=== PATIENT | male | born 1950 | race Caucasian/White ===

== ENCOUNTER 2019-08-26 07:47 | Outpatient (CLI) | payer MEDICARE, SELFPAY ==
--- NOTE | 2019-08-26 07:55 | XR_ITS ---
WS: [id number] CERVICAL SPINE 3 VIEWS HISTORY: remote trauma, pain, limited rom COMPARISON: None available. Mild straightening of the normal cervical lordosis. LEFT convex curvature of the cervical spine. Mult ilevel facet joint arthritis and hypertrophic bone formation. No fractures. Lateral masses of C1 and C2 are aligned. Odontoid is intact. Soft tissues are normal. XR/XR cervical spine 3V* [id number] IMPRESSION: Mild multilevel facet joint arthritis and spondylosis. No fracture.
== END 2019-08-26 07:48 | disposition home or self-care (01) ==
LOC: RAD 07:49
PROVIDERS: Family Provider Family Medicine; Visit Provider Emergency Medicine
DX: M13.88 Other specified arthritis, other site (principal); G89.29 Other chronic pain; M47.812 Spondylosis without myelopathy or radiculopathy, cervical region
CPT/HCPCS: 72040

== ENCOUNTER 2019-10-17 11:36 | Emergency (ER) | payer MEDICARE, SELFPAY ==
[2019-10-17] VITALS (7 sets, daily range): BP systolic 123–155; BP diastolic 74–92; PULSE 66–131; RESP 14–19; TEMP 36.7; O2SAT 94–96; BMI 30.4
--- NOTE | 2019-10-17 12:05 | ED_ITS ---
HPI - Arrhythmia/Palpitations General: Chief Complaint: Arrhythmia/Palpitations Stated Complaint: IRREGULAR HR Time Seen by Provider: 10/17/19 12:05 History of Present Illness: HPI narrative: This patient is a 68-year-old male who presents today with chest pain and rapid heart rate. He reports he was sitting in his recliner this morning when he had sudden onset of discomfort in his chest accompanied by racing and irregular heart rate. He has had some shor tness of breath with it. He does not feel well in general. The symptoms started about an hour prior to arrival in the ED. He has never had anything like this before. He does have a longstanding history of hypertension for which he takes medications. His primary care doctor is through the [facility] in [place]. No history of heart issues. MD complaint: rapid heart beat, palpitations and irregular heart beat Onset (ago): hour(s) (1) Duration: constant Severity: moderate Context: occurred during rest Associated symptoms: Reports short of breath; Deny nausea or vomiting Review of Systems General: Reports: 10 or more systems reviewed and unremarkable except in HPI and below Const: Denies: fever(s), chills, fatigue or malaise Eyes: Denies: change in vision ENMT: Denies: odynophagia Card: Denies: chest pain or swelling of feet/ankles Resp: Denies: dyspnea, productive cough or non-productive cough GI: Denies: abdominal pain, nausea or vomiting : Denies: flank pain Musc: Denies: neck pain or back pain Skin/Breast: Denies: rash Neuro: Denies: headache(s), numbness in extremities or weakness in extremities Jass/Lymph: Denies: easy bruising or easy bleeding PFS ED PFSH: Medical History (Updated 10/17/19 @ 16:14 by Corine Alcocer MD) Diabetes Hypertension Social History Smoking and tobacco status: never smoked Alcohol intake: never History of recent travel: No Physical Exam Const: COMMON NORMALS: no acute distress, patient oriented x3, no limitations and alert GENERAL APPEARANCE: cooperative and comfortable HENMT: HEAD & SCALP: normal to inspection FACE & SINUS: normal facial exam Eye: GENERAL EYE: appearance normal, both eyes and all related structures Neck/C-Spine: COMMON NORMALS: supple, no meningeal signs and no JVD Chest: COMMONS NORMALS: normal inspection of the chest Resp: COMMON NORMALS: normal respiratory effort, No use of accessory muscles and clear to auscultation bilaterally AUSCULTATION: clear to auscultation bilaterally Cardio: COMMON NORMALS: no JVD and No murmurs present (Cardio) RATE: tac hycardic RHYTHM: abnormal rhythm irregularly irregular GI: COMMON NORMALS: Normal to inspection, nondistended, normoactive bowel sounds present, Soft to palpation and non-tender INSPECTION: Yes normal to inspection AUSCULTATION: Yes normoactive bowel sounds PALPATION: Yes Soft to palpation Back/Pelvis: COMMON NORMALS: thoracic and lumbar spine normal to inspection Extremity: COMMON NORMALS: normal to inspection Neuro: COMMON NORMALS: patient oriented x3, moves all extremities, no focal motor deficits and no sensory deficits noted SENSORIUM/ORIENTATION: Yes alert MENINGEAL SIGNS: Yes no meningeal signs Psych: COMMON NORMALS: mental status grossly normal, cooperative and normal affect Skin: COMMON NORMALS: no rashes or lesions noted and turgor normal GENERAL SKIN EXAM: no rashes or lesions noted and turgor normal Course ED course: Patient was a little hypotensive when he came in he was given some IV fluids he was then given a bolus of 10 mg of IV Cardizem followed by a drip. When the drip was titrated up to 10 mg/h he converted to sinus rhythm at a rate of about 80. First troponin is negative. Second troponin is pending. Patient says he feels a little better but still not great. Second troponin is still pending. We discussed the possible indications for anticoagulation but given that he has had only had 1 episode and it is now resolved I do not think that is indicated at this time. He has a hairspring truing inspector at [facility] in [place] that he will follow-up with. We also discussed medications for rate and rhythm control. He is on amlodipine, clonidine, lisinopril hydrochlorothiazide for blood pressure control. I will probably add a small dose of metoprolol or Cardizem to that but have him follow-up closely with his hairspring truing inspector and decide how to optimize his blood pressure and rate control. Reevaluation(s): Reevaluation #1: Patient converted to sinus rhythm. We stopped the Cardizem drip and he remained in sinus for 45 minutes or an hour. He was given a dose of p.o. Cardizem. He is feeling better. His labs are unremarkable. No sign of ischemia. He has a hairspring truing inspector in [place] but requested a referral to cardiology here which was provided. I do not think we need to start anticoagulation at this time as he is only had one brief episode. He does understand that could be recommended at some point. I did put him on a small dose of Cardizem to take with his regular blood pressure medicines. He said his blood pressure normally runs in the 140s over 90s even on his medications. He will return if worse in any way. Vital Signs: Vital signs: Vital Signs Temperature 98.0 F 10/17/19 11:54 Pulse Rate 68 10/17/19 16:48 Respiratory Rate 16 10/17/19 16:48 Blood Pressure 155/77 10/17/19 16:48 Pulse Oximetry 96 10/17/19 16:48 MDM - Arrhythmia/Palpitations MDM Narrative: Medical decision making narrative: New onset A. fib. Risk factors of hypertension and diabetes. EKG shows A. fib with no obvious ST changes to suggest acute ID. Evaluate for cause of A. fib onset and manage rate and rhythm. We will discuss long-term management and potential anticoagulation. Lab Data: Labs: Lab Results 10/17/19 10/17/19 10/17/19 Range/Units 12:25 12:25 12:25 WBC 9.1 (4.0-10.0) 10^3/ uL RBC 5.82 H (4.1-5.3) 10^6/u L Hgb 16.5 (11.7-16.6) g/dL Hct 48.3 (42.0-52.0) % MCV 83.0 (80-94) fL MCH 28.4 (28.0-34.0) pg MCHC 34.2 (30.0-36.0) g/dL RDW 13.6 (12.1-15.1) % Plt Count 154 (130-400) 10^3/c mm MPV 10.7 H (7.4-10.4) fL Neut % (Auto) 71.0 % Lymph % (Auto) 20.3 % Elbert % (Auto) 5.9 % Eos % (Auto) 1.5 % Baso % (Auto) 0.8 % Neut # (Auto) 6.46 (1.8-7.7) 10^3/u L Lymph # (Auto) 1.9 (0.8-4.8) 10^3/u L Elbert # (Auto) 0.5 (0.2-0.9) 10^3/u L Eos # (Auto) 0.1 (0.0-0.8) 10^3/u L Baso # (Auto) 0.1 (0.0-0.1) 10^3/u L Nucleated RBC % (a uto) 0 % Nucleated RBCs # 0.0 /100WBC Sodium 142 (136-145) mmol/L Potassium 3.7 (3.5-5.1) mmol/L Chloride 105 (98-107) mmol/L Carbon Dioxide 27 (22-29) mmol/L Anion Gap 13.7 (5-19) BUN 18 (8-23) mg/dL Creatinine 0.9 (0.7-1.2) mg/dL GFR Calculation 83.7 L (90-130) mL/min Glucose 113 (65-115) mg/dL Calculated Osmolal ity 291 (285-295) mOsm/k g Calcium 8.8 (8.5-10.5) mg/dL Magnesium 2.2 (1.7-2.3) mg/dL Total Bilirubin 0.8 (0.15-1.2) mg/dL AST 19 (0-40) U/L ALT 22 (0-41) U/L Alkaline Phosphata se 79 (40-130) IU/L Troponin T Baselin e 10 (0-15) ng/L Troponin T 120 Min [place] band (0-15) ng/L Delta Troponin T (0-10) ABS# NT-Pro-B Natriuret Pep 66 (0-125) pg/mL Total Protein 7.3 (6.6-8.7) g/dL Albumin 4.5 (3.5-5.2) g/dL Globulin 2.8 (1.3-4.6) g/dL 10/17/19 Range/Units 14:32 WBC (4.0-10.0) 10^3/ uL RBC (4.1-5.3) 10^6/u L Hgb (11.7-16.6) g/dL Hct (42.0-52.0) % MCV (80-94) fL MCH (28.0-34.0) pg MCHC (30.0-36.0) g/dL RDW (12.1-15.1) % Plt Count (130-400) 10^3/c mm MPV (7.4-10.4) fL Neut % (Auto) % Lymph % (Auto) % Elbert % (Auto) % Eos % (Auto) % Baso % (Auto) % Neut # (Auto) (1.8-7.7) 10^3/u L Lymph # (Auto) (0.8-4.8) 10^3/u L Elbert # (Auto) (0.2-0.9) 10^3/u L Eos # (Auto) (0.0-0.8) 10^3/u L Baso # (Auto) (0.0-0.1) 10^3/u L Nucleated RBC % (a uto) % Nucleated RBCs # /100WBC Sodium (136-145) mmol/L Potassium (3.5-5.1) mmol/L Chloride (98-107) mmol/L Carbon Dioxide (22-29) mmol/L Anion Gap (5-19) BUN (8-23) mg/dL Creatinine (0.7-1.2) mg/dL GFR Calculation (90-130) mL/min Glucose (65-115) mg/dL Calculated Osmolal ity (285-295) mOsm/k g Calcium (8.5-10.5) mg/dL Magnesium (1.7-2.3) mg/dL Total Bilirubin (0.15-1.2) mg/dL AST (0-40) U/L ALT (0-41) U/L Alkaline Phosphata se (40-130) IU/L Troponin T Baselin e (0-15) ng/L Troponin T 120 Min [place] band 9.88 (0-15) ng/L Delta Troponin T -0.12 L (0-10) ABS# NT-Pro-B Natriuret Pep (0-125) pg/mL Total Protein (6.6-8.7) g/dL Albumin (3.5-5.2) g/dL Globulin (1.3-4.6) g/dL Discharge Plan Discharge Patient Disposition: Home Clinical Impression: Atrial fibrillation Qualifiers: Atrial fibrillation type: paroxysmal Qualified Code(s): I48.0 - Paroxysmal atrial fibrillation Condition: Stable Prescriptions: New Cardizem CD 120 mg capsule,extended release 24hr 120 mg PO DAILY Qty: 30 RF: 0 No Action gabapentin 300 mg capsule 300 mg PO DAILY RF: 0 allopurinol 300 mg tablet 150 mg PO DAILY RF: 0 metformin 500 mg tablet 500 mg PO DAILY RF: 0 clonidine HCl 0.1 mg tablet 0.1 mg PO BID RF: 0 amlodipine 10 mg tablet 10 mg PO DAILY RF: 0 lisinopril-hydrochlorothiazide 20-12.5 mg tablet 2 tab PO DAILY RF: 0 Discharge Orders: Discharge Order (Routine); Ordered 10/17/19 Ordered By: Corine Alcocer Referrals: Junito Booker [Primary Care Provider] - Palma Cohen MD [Physician] - 4-7 days (new onset afib) Discharge Diet: Advance as tolerated Discharge Activity: Resume usual activity Patient Instructions: Atrial Fibrillation (ED) Activity Restrictions/Additional Instructions: Continue your regular medications. Also start taking the diltiazem once daily beginning tomorrow evening. Follow-up with the hairspring truing inspector within the next week. Return to the emergency department if you have further episodes of rapid heart rate or chest pain that do not resolve within a short time. Discharge Date/Time: 10/17/19 16:48 Coding Level of Care Code ED [employer] for [employer] Fwd Exam Comprehensive
--- NOTE | 2019-10-17 12:06 | XR_ITS ---
WS: [id number] Portable AP upright chest, 10/17/2019 Clinical Data: cp Comparison: Portable chest, 08/23/2018. Findings: No nodules, masses or effusions are seen. The heart is normal. The pulmonary vascularity is not increased. No pneumonia or pneumothorax is seen. Monitor leads are on the chest wall. There is a n orthopedic anchor in the left humeral head. XR/XR chest 1V portable [id number] Impression: Negative chest.
--- NOTE | 2019-10-17 12:06 | ECG_ITS ---
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 Measurements Intervals [place] Rate: 148 P: FL: -1 QRS: -10 QRSD: 97 T: 69 QT: 303 QTc: 476 Interpretive Statements ATRIAL FIBRILLATION WITH RAPID VENTRICULAR RESPONSE INCOMPLETE RIGHT BUNDLE BRANCH BLOCK MODERATE ST DEPRESSION [0.05+ mV ST DEPRESSION] Compared to ECG 08/23/2018 22:28:50 Sinus bradycardia no longer present ST (T wave) deviation still present Electronically Signed On 10-18-2019 20:31:39 CDT by Palma Cohen M.D. [id number]
[2019-10-17] MEDS: sodium chloride 0.9% 1,000 ML 999 ML IV (12:27)
[2019-10-17 12:40] LABS: Basophils # 0.1 10^3/uL (0.0-0.1); Basophils % 0.8 %; Eosinophils # 0.1 10^3/uL (0.0-0.8); Eosinophils % 1.5 %; Hematocrit 48.3 % (42.0-52.0); Hemoglobin 16.5 g/dL (11.7-16.6); Lymphocytes # 1.9 10^3/uL (0.8-4.8); Lymphocytes % 20.3 %; Mean Corpuscular HGB Conc 34.2 g/dL (30.0-36.0); Mean Corpuscular Hemoglobin 28.4 pg (28.0-34.0); Mean Platelet Volume 10.7 fL (7.4-10.4); Monocytes # 0.5 10^3/uL (0.2-0.9); Monocytes % 5.9 %; Neutrophils # 6.46 10^3/uL (1.8-7.7); Nucleated Red Blood Cells % 0 %; Platelet Count 154 10^3/cmm (130-400); Red Blood Count 5.82 10^6/uL (4.1-5.3); Red Cell Distribution Width 13.6 % (12.1-15.1); White Blood Count 9.1 10^3/uL (4.0-10.0)
[2019-10-17 13:17] LABS: Troponin(5th) Baseline 10 ng/L (0-15)
[2019-10-17 13:27] LABS: Alanine Aminotransferase 22 U/L (0-41); Albumin Level 4.5 g/dL (3.5-5.2); Alkaline Phosphatase 79 IU/L (40-130); Anion Gap 13.7 (5-19); Aspartate Amino Transferase 19 U/L (0-40); Blood Urea Nitrogen 18 mg/dL (8-23); Calcium 8.8 mg/dL (8.5-10.5); Carbon Dioxide 27 mmol/L (22-29); Chloride 105 mmol/L (98-107); Globulin 2.8 g/dL (1.3-4.6); Glomerular Filtration Rate 83.7 mL/min (90-130); Glucose 113 mg/dL (65-115); Magnesium 2.2 mg/dL (1.7-2.3); NT Pro B Type Natriuretic Pept 66 pg/mL (0-125); Osmolality Calculated 291 mOsm/kg (285-295); Potassium 3.7 mmol/L (3.5-5.1); Sodium 142 mmol/L (136-145); Total Bilirubin 0.8 mg/dL (0.15-1.2); Total Protein 7.3 g/dL (6.6-8.7)
--- NOTE | 2019-10-17 14:06 | ECG_ITS ---
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 Measurements Intervals [place] Rate: 65 P: 53 OR: 166 QRS: -15 QRSD: 97 T: 52 QT: 414 QTc: 433 Interpretive Statements SINUS RHYTHM INCOMPLETE RIGHT BUNDLE BRANCH BLOCK Compared to ECG 10/17/2019 11:51:05 Atrial fibrillation no longer present ST (T wave) deviation no longer present Electronically Signed On 10-18-2019 20:55:55 CDT by Palma Cohen M.D. [id number] f
[2019-10-17 15:03] LABS: Troponin 5 2HR 9.88 ng/L (0-15)
[2019-10-17 15:06] LABS: Troponin 5 2HR Delta -0.12 ABS# (0-10)
[2019-10-17] MEDS: dilTIAZem ER (24HR) 120 mg Capsule PO (15:58)
--- NOTE | 2019-10-18 11:33 | DCPLANNER ---
manager sterile had message to schedule a follow up appointment for patient with [facility]. manager sterile called [facility], spoke with Lisette, a follow up appointment was scheduled for Monday, October 23, 2019 at 8:[address] Cohen. manager sterile called patient at phone number [phone], unable to speak with patient at this time, a voicemail was left for patient to return major case detective phone call.
--- NOTE | 2019-11-14 08:21 | DCPLANNER ---
Patient had a follow up appointment scheduled for 10.23.19 with [facility] - patient did attend the appointment.
== END 2019-10-17 16:48 | disposition home or self-care (01) ==
PROVIDERS: Emergency Provider Emergency Medicine; PCP Family Medicine
DX: I48.0 Paroxysmal atrial fibrillation (principal); E11.9 Type 2 diabetes mellitus without complications; I10 Essential (primary) hypertension; Z79.84 Long term (current) use of oral hypoglycemic drugs
CPT/HCPCS: 12345; 36415; 71045; 80053; 83735; 83880; 84484; 85025; 93005; 96365; 96366; 96375; 99283; 99284; J3490; J7030

== ENCOUNTER 2019-11-15 10:05 | Outpatient (CLI) | payer MEDICARE, SELFPAY ==
--- NOTE | 2019-11-15 10:15 | USCV_ITS ---
Paresh Lynch Age: 68 Gender: M : 1950 Exam Date: 11/15/2019 10:18 Ordering Phys: Palma Cohen MD ([email or web address]) Technologist: Lula Mascorro Exam Location: [facility] [place] Indication: AFIB BP: 154 / 62 HR: 57 Rhythm: Sinus Technical Quality: Good MEASUREMENTS (Male / Female) Normal Values 2D ECHO LV Diastolic Diameter PLAX 4.8 cm 4.2 - 5.9 / 3.9 - 5.3 cm LV Systolic Diameter PLAX 2.8 cm LV Chamber Size 5.9 cm IVS Diastolic Thickness 1.5 cm 0.6 - 1.0 / 0.6 - 0.9 cm IVS Systolic Thickness 1.7 cm LVPW Diastolic Thickness 1.1 cm 0.6 - 1.0 / 0.6 - 0.9 cm LVPW Systolic Thickness 1.5 cm RV Chamber Size 3.6 cm LVOT Diameter 2.0 cm LV Ejection Fraction 2D Teich 73.1 % LV Ejection Fraction MOD 2C 61.4 % LV Ejection Fraction 2C AL 61.5 % LA Diameter 4.5 cm LA Width 3.2 cm LA Height 4.8 cm RA Width 3.4 cm RA Height 4.6 cm Aorta at Sinotubular Diameter 2.6 cm M-MODE LV Diastolic Diameter MM 5.9 cm 4.2 - 5.9 / 3.9 - 5.3 cm LV Systolic Diameter MM 3.7 cm LV Ejection Fraction MM Teich 66.2 % IVS Diastolic Thickness MM 1.1 cm 0.6 - 1.0 / 0.6 - 0.9 cm IVS Systolic Thickness MM 1.2 cm LVPW Diastolic Thickness MM 0.8 cm 0.6 - 1.0 / 0.6 - 0.9 cm LVPW Systolic Thickness MM 1.5 cm Aortic Annulus Diameter 2.9 cm LA Ao Ratio MM 1.5 MV E Point Septal Separation 0.2 cm DOPPLER AV Peak Velocity 146.0 cm/s LVOT Peak Velocity 100.0 cm/s AV Area Cont Eq vti 2.2 cm squared AV Area Cont Eq pk 2.2 cm squared MV Area PHT 2.1 cm squared Mitral E to A Ratio 1.1 MV E' Velocity 94.0 cm/s Mitral E to LV E' Septal Ratio 13.7 TR Peak Velocity 266.1 cm/s TR Peak Gradient 28.3 mmHg TR Mean Velocity 177.4 cm/s TR Mean Gradient 15.0 mmHg TR Velocity Time Integral 68.8 cm TV Peak E Velocity 84.0 cm/s Right Atrial Pressure 3.0 mmHg Pulmonary Artery Systolic Pressu 31.3 mmHg PV Peak Velocity 63.0 cm/s FINDINGS Left Ventricle Normal left ventricular size, systolic function and upper normal wall thickness, with no regional wall motion abnormalities. Left ventricular ejection fraction is estimated at 65-70 %. Normal diastolic function. Right Ventricle Normal right ventricular size and systolic function. Right ventricular systolic pressure 31.3 mmHg. Right Atrium Normal right atrial size. Left Atrium Normal left atrial size. Mitral Valve Structurally normal mitral valve. No mitral valve stenosis. Trace mitral valve regurgitation. Aortic Valve Structurally normal trileaflet aortic valve. No aortic valve stenosis. No aortic valve regurgitation. Tricuspid Valve Structurally normal tricuspid valve. Pulmonic Valve Pulmonic valve not well visualized. Trace pulmonary valve regurgitation. Pericardium No pericardial effusion. Aorta Normal size aortic root and proximal ascending aorta. CONCLUSIONS 1. Normal left ventricular size, systolic function and upper normal wall thickness, with no regional wall motion abnormalities. Left ventricular ejection fraction is estimated at 65-70 %. Normal diastolic function. 2. Normal pulmonary artery pressure. 3. No significant valvular abnormality. 4. No prior similar studies to compare. Palma Cohen MD (Electronically Signed) Final Date: 16 November 2019 10:30 Amended: 16 November 2019 11:30 C
== END 2019-11-15 10:06 | disposition home or self-care (01) ==
LOC: US 10:06
PROVIDERS: PCP Family Medicine; Visit Provider Internal Medicine Cardiovascular Disease
DX: I48.91 Unspecified atrial fibrillation (principal)
CPT/HCPCS: 93306

== ENCOUNTER 2020-04-10 12:05 | Emergency (ER) | payer MEDICARE, SELFPAY ==
[2020-04-10 12:09] VITALS: BP 194/84; PULSE 64; RESP 18; TEMP 36.7; O2SAT 97; BMI 30.4
--- NOTE | 2020-04-10 12:23 | XR_ITS ---
WS: [id number] PORTABLE CHEST HISTORY: chest pain COMPARISON: 10/17/2019 Benign granulomata RIGHT lower lobe. No pneumonia. Normal vasculature. Mild hyperexpansion from emphysema. No pleural effusion or pneumothorax. Cardiac size: Normal. Mediastinum/Aorta: Normal mediastinum. No osseous abnormality seen. XR/XR chest 1V portable [id number] IMPRESSION: Stable chest. No acute cardiopulmonary disease.
--- NOTE | 2020-04-10 12:39 | W.ED.CHESTPA ---
HPI - Chest Pain General: Chief Complaint: Chest Pain Stated Complaint: CHEST PAIN, PAIN DOWN ARM Time Seen by Provider: 04/10/20 12:23 History of Present Illness: HPI narrative: 69-year-old male presents emergency room complaining of right-sided chest pain. Pain goes down his right arm and the right side of his arm he has pain is worsening raise on his left side better when he lays on his right side. Not had any cough noted any shortness of breath. MD complaint: chest pain Onset (ago): day(s) (5) Timing of current episode: episodic Prior episodes: Yes Onset: during rest Pain location: right chest Pain radiation: back Severity: moderate Quality: aching Relieving factors: rest Exacerbating factors: palpation and movement Associated symptoms: Deny abdominal pain, diaphoresis, dyspnea, fever(s), leg edema, nausea, palpitations, sense of impending doom, syncope or vomiting Treatment prior to arrival: none Review of Systems Const: Denies: fever(s) or diaphoresis ENMT: Denies: throat pain, ear or mastoid pain, nasal discharge or nasal congestion Card: Denies: palpitations or syncope Resp: Denies: dyspnea GI: Denies: abdominal pain, nausea or vomiting : Denies: flank pain, dysuria, urinary frequency or urinary urgency Skin/Breast: Denies: rash or pruritus PFSH ED PFSH: Medical History Diabetes Hypertension Family History Other CAD (coronary artery disease) Diabetes Denies family history of Stroke Social History Smoking and tobacco status: never smoked Alcohol intake: never History of recent travel: No Physical Exam Const: COMMON NORMALS: no acute distress GENERAL APPEARANCE: cooperative and comfortable ORIENTATION/CONSCIOUSNESS: Yes awake, Yes oriented to person, Yes oriented to place and Yes oriented to time HENMT: COMMON NORMALS: normocephalic, atraumatic and hearing grossly normal bilaterally HEAD & SCALP: normocephalic and atraumatic Neck/C-Spine: COMMON NORMALS: no JVD Chest: OTHER: Producible with movement and palpation on the right mid upper back. Resp: COMMON NORMALS: normal respiratory effort, No retractions, No use of accessory muscles and clear to auscultation bilaterally AUSCULTATION: clear to auscultation bilaterally Cardio: COMMON NORMALS: no JVD, regular rate, regular rhythm and No murmurs present (Cardio) RATE: regular rate RHYTHM: regular rhythm GI: COMMON NORMALS: Soft to palpation and No hepatosplenomegaly present AUSCULTATION: Yes normoactive bowel sounds PALPATION: Yes Soft to palpation, No Tenderness to palpation present (GI), No Guarding due to palpation present (GI) and Yes No hepatosplenomegaly present Extremity: COMMON NORMALS: normal to inspection, capillary refill normal, no clubbing, cyanosis or edema, no calf tenderness and no pedal edema Neuro: SENSORIUM/ORIENTATION: Yes oriented to person, Yes oriented to place and Yes oriented to time Skin: COMMON NORMALS: no rashes or lesions noted GENERAL SKIN EXAM: no rashes or lesions noted Course Vital Signs: Vital signs: Vital Signs Temperature 98.1 F 04/10/20 12:09 Pulse Rate 64 04/10/20 16:08 Respiratory Rate 19 H 04/10/20 16:08 Blood Pressure 158/68 04/10/20 16:08 Pulse Oximetry 97 04/10/20 16:08 MDM - Chest Pain MDM Narrative: Medical decision making narrative: Troponins negative EKG is unremarkable discharge home follow-up with his primary care doctor discussed outpatient cardiac testing he had one about 3 to 4 years ago he does not wish to proceed with. Lab Data: Labs: Lab Results 04/10/20 04/10/20 04/10/20 Range/Units 12:30 12:30 12:30 WBC 7.9 (4.0-10.0) 10^3/ uL RBC 5.48 H (4.1-5.3) 10^6/u L Hgb 15.8 (11.7-16.6) g/dL Hct 46.3 (42.0-52.0) % MCV 84.5 (80-94) fL MCH 28.8 (28.0-34.0) pg MCHC 34.1 (30.0-36.0) g/dL RDW 13.5 (12.1-15.1) % Plt Count 145 (130-400) 10^3/c mm MPV 10.3 (7.4-10.4) fL Neut % (Auto) 67.6 % Lymph % (Auto) 22.7 % Schley % (Auto) 5.6 % Eos % (Auto) 2.5 % Baso % (Auto) 1.0 % Neut # (Auto) 5.33 (1.8-7.7) 10^3/u L Lymph # (Auto) 1.8 (0.8-4.8) 10^3/u L Schley # (Auto) 0.4 (0.2-0.9) 10^3/u L Eos # (Auto) 0.2 (0.0-0.8) 10^3/u L Baso # (Auto) 0.1 (0.0-0.1) 10^3/u L Nucleated RBC % (a uto) 0 % Nucleated RBCs # 0.0 /100WBC Sodium 142 (136-145) mmol/L Potassium 4.0 (3.5-5.1) mmol/L Chloride 107 (98-107) mmol/L Carbon Dioxide 27 (22-29) mmol/L Anion Gap 12.0 (5-19) BUN 20 (8-23) mg/dL Creatinine 0.9 (0.7-1.2) mg/dL GFR Calculation 83.4 L (90-130) mL/min Glucose 142 H (65-115) mg/dL Calculated Osmolal ity 299 H (285-295) mOsm/k g Calcium 8.6 (8.5-10.5) mg/dL Total Bilirubin 0.7 (0.15-1.2) mg/dL AST 19 (0-40) U/L ALT 22 (0-41) U/L Alkaline Phosphata se 78 (40-130) IU/L Troponin T Baselin e 7 (0-15) ng/L Troponin T 120 Min chinik (0-15) ng/L Delta Troponin T (0-10) ABS# Total Protein 6.9 (6.6-8.7) g/dL Albumin 4.2 (3.5-5.2) g/dL Globulin 2.7 (1.3-4.6) g/dL Lipase 21 (13-60) U/L Hepatitis A IgM Ab (Nonreactive) Hep Bs Antigen (Nonreactive) Hep B Core IgM Ab (Nonreactive) Hepatitis C Antibo dy (Nonreactive) HIV 1&2 Ab & HIV 1 Ag (Non-Reactiv) HIV 1&2 Antibody (Non-Reactiv) 04/10/20 04/10/20 04/10/20 Range/Units 12:30 12:30 14:17 WBC (4.0-10.0) 10^3/ uL RBC (4.1-5.3) 10^6/u L Hgb (11.7-16.6) g/dL Hct (42.0-52.0) % MCV (80-94) fL MCH (28.0-34.0) pg MCHC (30.0-36.0) g/dL RDW (12.1-15.1) % Plt Count (130-400) 10^3/c mm MPV (7.4-10.4) fL Neut % (Auto) % Lymph % (Auto) % Schley % (Auto) % Eos % (Auto) % Baso % (Auto) % Neut # (Auto) (1.8-7.7) 10^3/u L Lymph # (Auto) (0.8-4.8) 10^3/u L Schley # (Auto) (0.2-0.9) 10^3/u L Eos # (Auto) (0.0-0.8) 10^3/u L Baso # (Auto) (0.0-0.1) 10^3/u L Nucleated RBC % (a uto) % Nucleated RBCs # /100WBC Sodium (136-145) mmol/L Potassium (3.5-5.1) mmol/L Chloride (98-107) mmol/L Carbon Dioxide (22-29) mmol/L Anion Gap (5-19) BUN (8-23) mg/dL Creatinine (0.7-1.2) mg/dL GFR Calculation (90-130) mL/min Glucose (65-115) mg/dL Calculated Osmolal ity (285-295) mOsm/k g Calcium (8.5-10.5) mg/dL Total Bilirubin (0.15-1.2) mg/dL AST (0-40) U/L ALT (0-41) U/L Alkaline Phosphata se (40-130) IU/L Troponin T Baselin e (0-15) ng/L Troponin T 120 Min chinik 8.60 (0-15) ng/L Delta Troponin T 1.60 (0-10) ABS# Total Protein (6.6-8.7) g/dL Albumin (3.5-5.2) g/dL Globulin (1.3-4.6) g/dL Lipase (13-60) U/L Hepatitis A IgM Ab Non-reactive (Nonreactive) Hep Bs Antigen Non-reactive (Nonreactive) Hep B Core IgM Ab Non-reactive (Nonreactive) Hepatitis C Antibo dy Non-reactive (Nonreactive) HIV 1&2 Ab & HIV 1 Ag Non-reactive (Non-Reactiv) HIV 1&2 Antibody Non-reactive (Non-Reactiv) Discharge Plan Discharge Patient Disposition: Home Clinical Impression: Atypical chest pain, Diabetes Condition: Stable Prescriptions: No Action gabapentin 300 mg capsule 300 mg PO DAILY@2099 RF: 0 allopurinol 300 mg tablet 300 mg PO DAILY@2099 RF: 0 metformin 500 mg tablet 500 mg PO DAILY@2099 RF: 0 amlodipine 10 mg tablet 10 mg PO DAILY@2099 RF: 0 lisinopril-hydrochlorothiazide 20-12.5 mg tablet 2 tab PO DAILY@2099 RF: 0 clonidine HCl 0.1 mg tablet 0.1 mg PO DAILY@2099 RF: 0 ibuprofen 100 mg Tablet 100 - 200 mg PO Q6H PRN (Reason: Pain) RF: 0 Benadryl 25 mg Capsule 25 mg PO Q6H PRN (Reason: Itching) RF: 0 carvedilol 12.5 mg tablet 12.5 mg PO BID@0800,2099 RF: 0 Discharge Orders: Discharge ED (Routine); Ordered 04/10/20 Ordered By: Dharmesh Richmond Discharge Diet: Usual diet Discharge Activity: Increase activity as tolerated Patient Instructions: Opioid Safety Activity Restrictions/Additional Instructions: Case management will help with arrangements to see a PCP recommend you follow-up with them within the next week to reevaluate your blood pressure if back pain persists they can assist with this as well. Coding Level of Care Code ED Product Safety Manager for Kranthi Maciel
[2020-04-10 12:42] LABS: Basophils # 0.1 10^3/uL (0.0-0.1); Eosinophils # 0.2 10^3/uL (0.0-0.8); Eosinophils % 2.5 %; Hematocrit 46.3 % (42.0-52.0); Hemoglobin 15.8 g/dL (11.7-16.6); Lymphocytes # 1.8 10^3/uL (0.8-4.8); Lymphocytes % 22.7 %; Mean Corpuscular HGB Conc 34.1 g/dL (30.0-36.0); Mean Corpuscular Hemoglobin 28.8 pg (28.0-34.0); Mean Corpuscular Volume 84.5 fL (80-94); Mean Platelet Volume 10.3 fL (7.4-10.4); Monocytes # 0.4 10^3/uL (0.2-0.9); Monocytes % 5.6 %; Neutrophils # 5.33 10^3/uL (1.8-7.7); Neutrophils % 67.6 %; Nucleated Red Blood Cells % 0 %; Platelet Count 145 10^3/cmm (130-400); Red Blood Count 5.48 10^6/uL (4.1-5.3); Red Cell Distribution Width 13.5 % (12.1-15.1); White Blood Count 7.9 10^3/uL (4.0-10.0)
[2020-04-10 13:01] LABS: Alanine Aminotransferase 22 U/L (0-41); Albumin Level 4.2 g/dL (3.5-5.2); Alkaline Phosphatase 78 IU/L (40-130); Aspartate Amino Transferase 19 U/L (0-40); Blood Urea Nitrogen 20 mg/dL (8-23); Calcium 8.6 mg/dL (8.5-10.5); Carbon Dioxide 27 mmol/L (22-29); Chloride 107 mmol/L (98-107); Globulin 2.7 g/dL (1.3-4.6); Glomerular Filtration Rate 83.4 mL/min (90-130); Glucose 142 mg/dL (65-115); Lipase 21 U/L (13-60); Osmolality Calculated 299 mOsm/kg (285-295); Sodium 142 mmol/L (136-145); Total Bilirubin 0.7 mg/dL (0.15-1.2); Total Protein 6.9 g/dL (6.6-8.7); Troponin(5th) Baseline 7 ng/L (0-15)
[2020-04-10 13:14] VITALS: BP 151/74; PULSE 62; RESP 18; O2SAT 95
[2020-04-10 14:00] VITALS: BP 165/76; PULSE 61; RESP 22; O2SAT 95
--- NOTE | 2020-04-10 14:24 | ECG_ITS ---
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 Measurements Intervals [place] Rate: 57 P: 62 TN: 165 QRS: 25 QRSD: 101 T: 69 QT: 441 QTc: 430 Interpretive Statements SINUS BRADYCARDIA INCOMPLETE RIGHT BUNDLE BRANCH BLOCK [90+ ms QRS DURATION, TERMINAL R IN V1/V2, 40+ ms S IN I/aVL/V4/V5/V6] NONSPECIFIC T-WAVE ABNORMALITY Compared to ECG 10/17/2019 14:25:35 T-wave abnormality now present Sinus rhythm no longer present Electronically Signed On 04-10-2020 16:14:56 FLOOR COVERINGS INSTALLER by Fili Veloz M.D. [id number]
[2020-04-10 14:30] VITALS: BP 156/73; PULSE 61; RESP 17; O2SAT 96
--- NOTE | 2020-04-10 14:51 | PC.NURSE ---
EKG done at 1435 and shown to ER doctor
[2020-04-10 16:00] VITALS: BP 158/68; PULSE 62; RESP 18; O2SAT 96
[2020-04-10 16:07] LABS: HIV 1 & 2 Antibody Non-Reactive (Non-Reactiv); HIV 1 & 2 Antigen Non-Reactive (Non-Reactiv)
[2020-04-10 16:08] VITALS: BP 158/68; PULSE 64; RESP 19; O2SAT 97
[2020-04-10 16:09] LABS: Hepatitis A Antibody IgM Non-Reactive (Nonreactive); Hepatitis B Core IgM Non-Reactive (Nonreactive); Hepatitis B Surface Antigen Non-Reactive (Nonreactive); Hepatitis C Virus Antibody Non-Reactive (Nonreactive)
--- NOTE | 2020-04-13 14:23 | DCPLANNER ---
regional production manager had message to speak with patient about getting established with a primary care physician. regional production manager called to speak with patient, spoke with patients , she stated that patient did need a primary care physician, and would like to have one in the [facility] area. regional production manager called [facility] in [facility], spoke with Edison, a follow up appointment scheduled for Wednesday, April 15, 2020 at 3:[address] Chun at the [facility] clinic in [facility]. regional production manager called patients again and gave her the appointment information and the phone number to the clinic.
--- NOTE | 2020-04-28 12:48 | DCPLANNER ---
Patient had a follow up appointment scheduled for 04.15.20 with SILVIO Griffith with Dr. Chun - patient did attend appointment.
== END 2020-04-10 16:08 | disposition home or self-care (01) ==
PROVIDERS: Emergency Provider Family Medicine
DX: R07.89 Other chest pain (principal); E11.9 Type 2 diabetes mellitus without complications; Z79.84 Long term (current) use of oral hypoglycemic drugs; I10 Essential (primary) hypertension
CPT/HCPCS: 71045; 80053; 80074; 83690; 84484; 85025; 87806; 93005; 99283

== ENCOUNTER → 2020-04-15 16:49 | Outpatient (BNVA) | payer MEDICARE, SELFPAY | PROVIDERS: Visit Provider Family Medicine | DX: R07.81 Pleurodynia (principal); M79.2 Neuralgia and neuritis, unspecified | CPT/HCPCS: 72040; 72072 ==

== ENCOUNTER → 2020-07-21 10:58 | Outpatient (BNVA) | payer MEDICARE, SELFPAY | PROVIDERS: PCP Family Medicine; Visit Provider Family Medicine | DX: I10 Essential (primary) hypertension (principal); E11.42 Type 2 diabetes mellitus with diabetic polyneuropathy | CPT/HCPCS: 80053; 80061; 83036; 83721 ==

== ENCOUNTER → 2020-09-21 13:48 | Outpatient (BNVA) | payer MEDICARE, SELFPAY | PROVIDERS: PCP Family Medicine; Visit Provider Nurse Practitioner Family | DX: Z20.822 Contact with and (suspected) exposure to COVID-19 (principal) | CPT/HCPCS: 87635 ==

== ENCOUNTER → 2020-12-22 10:54 | Outpatient (BNVA) | payer MEDICARE, SELFPAY | PROVIDERS: PCP Family Medicine; Visit Provider Family Medicine | DX: I10 Essential (primary) hypertension (principal); E11.9 Type 2 diabetes mellitus without complications | CPT/HCPCS: 80048; 83036 ==

== ENCOUNTER → 2021-03-15 09:43 | Outpatient (BNVA) | payer MEDICARE, SELFPAY | PROVIDERS: PCP Family Medicine; Visit Provider Family Medicine | DX: M1A.09X0 Idiopathic chronic gout, multiple sites, without tophus (tophi) (principal); L29.9 Pruritus, unspecified; I10 Essential (primary) hypertension; E11.42 Type 2 diabetes mellitus with diabetic polyneuropathy; E11.9 Type 2 diabetes mellitus without complications; Z12.5 Encounter for screening for malignant neoplasm of prostate; Z12.11 Encounter for screening for malignant neoplasm of colon | CPT/HCPCS: 80053; 83036; 84153; 84550 ==

== ENCOUNTER → 2021-06-14 09:14 | Outpatient (BNVA) | payer MEDICARE, SELFPAY | PROVIDERS: PCP Family Medicine; Visit Provider Family Medicine | DX: I10 Essential (primary) hypertension (principal); E11.42 Type 2 diabetes mellitus with diabetic polyneuropathy; M1A.09X0 Idiopathic chronic gout, multiple sites, without tophus (tophi); Z13.220 Encounter for screening for lipoid disorders; Z13.6 Encounter for screening for cardiovascular disorders | CPT/HCPCS: 80053; 80061; 83036; 83721; 84550 ==

== ENCOUNTER → 2021-07-12 10:02 | Outpatient (BNVA) | payer MEDICARE, SELFPAY | PROVIDERS: PCP Family Medicine; Visit Provider Family Medicine | DX: R74.8 Abnormal levels of other serum enzymes (principal); I10 Essential (primary) hypertension | CPT/HCPCS: 80048 ==

== ENCOUNTER → 2021-09-09 08:56 | Outpatient (BNVA) | payer MEDICARE, SELFPAY | PROVIDERS: PCP Family Medicine; Visit Provider Family Medicine | DX: M17.0 Bilateral primary osteoarthritis of knee (principal) | CPT/HCPCS: 73562 ==

== ENCOUNTER → 2022-01-11 08:41 | Outpatient (BNVA) | payer MEDICARE, SELFPAY | PROVIDERS: PCP Family Medicine; Visit Provider Family Medicine | DX: E11.42 Type 2 diabetes mellitus with diabetic polyneuropathy (principal); I10 Essential (primary) hypertension | CPT/HCPCS: 80048; 83036 ==

== ENCOUNTER → 2022-03-03 10:42 | Outpatient (BNVA) | payer MEDICARE, SELFPAY | PROVIDERS: PCP Family Medicine; Visit Provider Internal Medicine Cardiovascular Disease | DX: R00.2 Palpitations (principal); I48.0 Paroxysmal atrial fibrillation; I10 Essential (primary) hypertension; E11.42 Type 2 diabetes mellitus with diabetic polyneuropathy; M1A.09X0 Idiopathic chronic gout, multiple sites, without tophus (tophi) | CPT/HCPCS: 93010 ==

== ENCOUNTER 2022-06-06 20:36 | Observation (INO) | payer MEDICARE, SELFPAY ==
[2022-06-06 20:48] VITALS: BP 188/90; PULSE 64; RESP 14; TEMP 37.1; O2SAT 96; BMI 31.5
--- NOTE | 2022-06-06 20:54 | ECG_ITS ---
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 Measurements Intervals [place] Rate: 60 P: 48 LA: 167 QRS: -13 QRSD: 109 T: 55 QT: 423 QTc: 425 Interpretive Statements SINUS RHYTHM INCOMPLETE RIGHT BUNDLE BRANCH BLOCK [90+ ms QRS DURATION, TERMINAL R IN V1/V2, 40+ ms S IN I/aVL/V4/V5/V6] Compared to ECG 04/10/2020 14:36:09 Sinus bradycardia no longer present T-wave abnormality no longer present Electronically Signed On 06-07-2022 14:50:05 CDT by Sumeet Tay M.D. [id number]
[2022-06-06 20:56] LABS: Glucose Point of Care 169 mg/dL (70-110)
--- NOTE | 2022-06-06 20:57 | XRR_ITS ---
PROCEDURE INFORMATION: Exam: XR Chest Exam date and time: 06/06/2022 9:09 PM Age: 71 years old Clinical indication: Other: Weakness; Additional info: Cp TECHNIQUE: Imaging protocol: Radiologic exam of the chest. Views: 1 view. COMPARISON: CR XR chest 1V portable [id number] 04/10/2020 12:27 PM FINDINGS: Lungs: Two right lower lobe probable granulomas, similar to prior exams dating back to 03/18/2018. Pleural spaces: Unremarkable. No pleural effusion. No pneumothorax. Heart/Mediastinum: Cardiomegaly. Bones/joints: Unremarkable. XR/XR chest 1V portable [id number] IMPRESSION: Cardiomegaly, negative for infiltrate.
--- NOTE | 2022-06-06 20:57 | CTR_ITS ---
PROCEDURE INFORMATION: Exam: CTA Head With Contrast, Arteriography Exam date and time: 06/06/2022 9:35 PM Age: 71 years old Clinical indication: Pain; Dizziness and giddiness; Headache; Patient HX: C/O OBRIEN with dizziness. History of TIA. ; Additional info: Obrien/dizziness TECHNIQUE: Imaging protocol: Computed tomographic angiography of the head with contrast. Exam focused on the arteries. 3D rendering (Not supervised by radiologist): MIP and/or 3D reconstructed images were created by the technologist. Radiation optimization: All CT scans at this facility use at least one of these dose optimization techniques: automated exposure control; mA and/or kV adjustment per patient size (includes targeted exams where dose is matched to clinical indication); or iterative reconstruction. Contrast material: OMNI 350; Contrast volume: 100 ml; Contrast route: INTRAVENOUS (IV); REPORTING DATA: Count of CT and Cardiac NM exams in prior 12 months: This patient has received [address] and 0 known cardiac nuclear medicine studies in the 12 months prior to the current study. COMPARISON: CT head wo con* [id number] 06/06/2022 9:32 PM RADIATION DOSE METRICS: Total DLP (mGy-cm): 553.72 FINDINGS: ANTERIOR CIRCULATION: Right internal carotid artery: Intracranial segment is patent with no significant stenosis. No aneurysm. Right middle cerebral artery: No occlusion or significant stenosis. No aneurysm. Right anterior cerebral artery: No occlusion or significant stenosis. No aneurysm. Left internal carotid artery: Mild stenosis in the supraclinoid left internal carotid artery. Left middle cerebral artery: No occlusion or significant stenosis. No aneurysm. Left anterior cerebral artery: No occlusion or significant stenosis. No aneurysm. POSTERIOR CIRCULATION: Right vertebral artery: No occlusion or significant stenosis. No aneurysm. Left vertebral artery: No occlusion or significant stenosis. No aneurysm. Basilar artery: No occlusion or significant stenosis. No aneurysm. Right posterior cerebral artery: Severe stenosis in the P1 segment of the right posterior cerebral artery. Left posterior cerebral artery: Moderate stenosis in the P2 segment of the left posterior cerebral artery. Brain: No definite mass, mass effect, or midline shift. Cerebral ventricles: No ventriculomegaly. Bones/joints: Unremarkable. No acute fracture. Soft tissues: Unremarkable. PROCEDURE INFORMATION: Exam: CTA Neck With Contrast Exam date and time: 06/06/2022 9:35 PM Age: 71 years old Clinical indication: Pain; Dizziness and giddiness; Headache; Patient HX: C/O OBRIEN with dizziness. History of TIA. ; Additional info: Obrien/dizziness TECHNIQUE: Imaging protocol: Computed tomographic angiography of the neck with contrast. 3D rendering (Not supervised by radiologist): MIP and/or 3D reconstructed images were created by the technologist. Radiation optimization: All CT scans at this facility use at least one of these dose optimization techniques: automated exposure control; mA and/or kV adjustment per patient size (includes targeted exams where dose is matched to clinical indication); or iterative reconstruction. Contrast material: OMNI 350; Contrast volume: 100 ml; Contrast route: INTRAVENOUS (IV); REPORTING DATA: Count of CT and Cardiac NM exams in prior 12 months: This patient has received [address] and 0 known cardiac nuclear medicine studies in the 12 months prior to the current study. COMPARISON: CT head wo con* [id number] 06/06/2022 9:32 PM RADIATION DOSE METRICS: Total DLP (mGy-cm): 553.72 FINDINGS: Right common carotid artery: No stenosis. No dissection or occlusion. Right internal carotid artery: No stenosis of the extracranial segment. No dissection or occlusion. Right external carotid artery: No occlusion or stenosis of the origin. Left common carotid artery: No stenosis. No dissection or occlusion. Left internal carotid artery: Minimal calcified plaque in the left internal carotid artery with 0% stenosis. Left external carotid artery: No occlusion or stenosis of the origin. Right vertebral artery: No stenosis. No dissection or occlusion. Left vertebral artery: No stenosis. No dissection or occlusion. Lymph nodes: Prominent mediastinal and hilar lymph nodes are most likely reactive. Soft tissues: Normal. No significant soft tissue swelling. Bones/joints: No acute fracture. Lungs: Emphysema. Left upper lobe calcified granuloma. CT/CT angio headneck* [id number] IMPRESSION: 1. 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 2. Moderate stenosis in the P2 segment of the left posterior cerebral artery. IMPRESSION: 1. No large artery occlusion or stenosis. REFERENCES: NASCET CRITERIA. The degree of stenosis in the cervical segment of the internal carotid artery is based on NASCET criteria. Normal is no stenosis. Mild is less than 50% stenosis. Moderate is 50-69% stenosis. Severe is 70% to 99% stenosis. Total occlusion is no detectable patent lumen.
--- NOTE | 2022-06-06 20:57 | CTR_ITS ---
PROCEDURE INFORMATION: Exam: CT Head Without Contrast Exam date and time: 06/06/2022 9:32 PM Age: 71 years old Clinical indication: Pain; Headache; Patient HX: C/O OBRIEN with dizziness. History of TIA. ; Additional info: Obrien/dizziness TECHNIQUE: Imaging protocol: Computed tomography of the head without contrast. Radiation optimization: All CT scans at this facility use at least one of these dose optimization techniques: automated exposure control; mA and/or kV adjustment per patient size (includes targeted exams where dose is matched to clinical indication); or iterative reconstruction. REPORTING DATA: Count of CT and Cardiac NM exams in prior 12 months: This patient has received [address] and 0 known cardiac nuclear medicine studies in the 12 months prior to the current study. COMPARISON: CR XR cervical spine 3V* [id number] 04/15/2020 5:00 PM RADIATION DOSE METRICS: Total DLP (mGy-cm): 1164.08 FINDINGS: Brain: Mild diffuse cortical volume loss. Mild hypodensities in supratentorial periventricular and subcortical white matter, consistent with microangiopathy. No intracranial hemorrhage. Cerebral ventricles: No ventriculomegaly. Paranasal sinuses: Mild mucosal thickening in the maxillary, ethmoid, and sphenoid sinuses. No air-fluid level. Mastoid air cells: Visualized mastoid air cells are well aerated. Bones/joints: Unremarkable. No acute fracture. Soft tissues: Unremarkable. Vasculature: No hyperdense artery. CT/CT head wo con* [id number] IMPRESSION: 1. No acute intracranial abnormality.
--- NOTE | 2022-06-06 20:57 | ECG_ITS ---
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 Measurements Intervals [place] Rate: 69 P: 54 [place]: 168 QRS: -10 QRSD: 104 T: 63 QT: 416 QTc: 446 Interpretive Statements SINUS RHYTHM WITH OCCASIONAL SUPRAVENTRICULAR PREMATURE COMPLEXES INCOMPLETE RIGHT BUNDLE BRANCH BLOCK [90+ ms QRS DURATION, TERMINAL R IN V1/V2, 40+ ms S IN I/aVL/V4/V5/V6] Compared to ECG 04/10/2020 14:36:09 Sinus bradycardia no longer present T-wave abnormality no longer present Electronically Signed On 06-07-2022 14:50:01 CDT by Sumeet Tay M.D. [id number]
[2022-06-06 21:33] LABS: Basophils # 0.1 10^3/uL (0.0-0.1); Eosinophils # 0.2 10^3/uL (0.0-0.8); Eosinophils % 2.9 %; Hematocrit 42.5 % (42.0-52.0); Hemoglobin 14.2 g/dL (11.7-16.6); Lymphocytes % 33.7 %; Mean Corpuscular HGB Conc 33.4 g/dL (30.0-36.0); Mean Corpuscular Hemoglobin 30.7 pg (28.0-34.0); Mean Platelet Volume 10.6 fL (7.4-10.4); Monocytes # 0.4 10^3/uL (0.2-0.9); Monocytes % 6.1 %; Neutrophils # 3.28 10^3/uL (1.8-7.7); Neutrophils % 55.6 %; Nucleated Red Blood Cells % 0 %; Platelet Count 131 10^3/cmm (130-400); Red Blood Count 4.62 10^6/uL (4.1-5.3); White Blood Count 5.9 10^3/uL (4.0-10.0)
[2022-06-06] MEDS: iohexol 350 mg/mL 500 mL Btl (per mL) IV (21:35)
--- NOTE | 2022-06-06 21:35 | W.ED.HA ---
HPI - Headache General: Chief Complaint: Headache Stated Complaint: weakness, stroke like symptoms Time Seen by Provider: 06/06/22 20:50 Source: patient Mode of arrival: ambulatory Limitations: no limitations History of Present Illness: 71-year-old male states at 3 PM today felt like he did have he states the swimmy headed sounds like he is having some lightheadedness he states he is also been having intermittent chest pain and headache since then he states the pain is a pressure type pain in the center of his chest he denies any nausea or vomiting he denies any dizziness he states that he did feel like he had a hard time walking at times its been intermittent. His last known normal was 3 PM. He has no facial droop or slurred speech or focal weaknesses. He denies any shortness of breath denies any worsening proving factors. Associated symptoms: Reports chest pain; Deny fever(s), nausea or vomiting Review of Systems Const: Denies: fever(s), chills, body aches or change in appetite Eyes: Denies: blurry vision or eye discomfort ENMT: Denies: throat pain or dental pain Card: Reports: chest pain Resp: Denies: dyspnea GI: Denies: abdominal pain, nausea, vomiting or diarrhea Musc: Denies: neck pain or back pain Neuro: Reports: headache(s) Psych: Denies: depression PFSH ED PFSH: Medical History Diabetes Intolerance to glipizide, high-dose Metformin causes diarrhea Diabetic neuropathy Erectile dysfunction Hypertension Family History Other CAD (coronary artery disease) Diabetes Denies family history of Stroke Social History Smoking and tobacco status: former smoker (quit 1998) Alcohol intake: never Physical Exam Const: COMMON NORMALS: patient oriented x3 and healthy appearing HENMT: COMMON NORMALS: normocephalic and atraumatic HEAD & SCALP: normocephalic and atraumatic Eye: COMMON NORMALS: Equal, round and reactive pupils present and EOMs intact bilaterally PUPIL: Yes Equal, round and reactive pupils present Neck/C-Spine: COMMON NORMALS: full ROM and supple Chest: COMMONS NORMALS: normal inspection of the chest and normal palpation of entire chest wall Resp: COMMON NORMALS: normal respiratory effort, No retractions, No use of accessory muscles and clear to auscultation bilaterally AUSCULTATION: clear to auscultation bilaterally Cardio: COMMON NORMALS: regular rate, regular rhythm and No murmurs present (Cardio) RATE: regular rate RHYTHM: regular rhythm GI: COMMON NORMALS: Normal to inspection, nondistended, normoactive bowel sounds present, Soft to palpation, non-tender and no masses PALPATION: Yes Soft to palpation Extremity: COMMON NORMALS: normal to inspection and full ROM Neuro: COMMON NORMALS: patient oriented x3, moves all extremities and no focal motor deficits CRANIAL NERVES: Yes CN normal except as noted SPEECH: speech normal GAIT: Yes Normal gait present MOTOR EXAM: 5/5 motor strength present throughout Psych: COMMON NORMALS: mental status grossly normal, Normal thought process present and cooperative THOUGHT PROCESS: Normal thought process present Skin: COMMON NORMALS: no rashes or lesions noted and no wounds GENERAL SKIN EXAM: no rashes or lesions noted Course Vital Signs: Vital signs: Vital Signs Temperature 98.8 F 06/06/22 20:48 Pulse Rate 64 06/06/22 20:48 Respiratory Rate 14 06/06/22 20:48 Blood Pressure 188/90 06/06/22 20:48 Pulse Oximetry 96 06/06/22 20:48 Oxygen Delivery Me thod Room Air 06/06/22 20:48 MDM - Headache Medical Decision Making StartedPatient presents with dizziness along some chest pain 3 PM he is not a tPA candidate due to time CTA did show some stenosis no clot his initial troponin here is normal I did speak to the hospitalist will admit for observation to rule out a posterior stroke along with chest pain rule out he has been stable here. Medical Records I reviewed the patient's medical records. Lab Data I reviewed the patient's lab results. 06/06/22 21:15 06/06/22 21:15 Radiology Impressions Chest X-Ray 06/06/22 20:57 IMPRESSION: Cardiomegaly, negative for infiltrate. Head CT 06/06/22 20:57 IMPRESSION: 1. No acute intracranial abnormality. Head/Neck CTA 06/06/22 20:57 IMPRESSION: 1. 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 2. Moderate stenosis in the P2 segment of the left posterior cerebral artery. IMPRESSION: 1. No large artery occlusion or stenosis. REFERENCES: NASCET CRITERIA. The degree of stenosis in the cervical segment of the internal carotid artery is based on NASCET criteria. Normal is no stenosis. Mild is less than 50% stenosis. Moderate is 50-69% stenosis. Severe is 70% to 99% stenosis. Total occlusion is no detectable patent lumen. Laboratory Results WBC 5.9 10^3/uL (4.0-10.0) 06/06/22 21:15 RBC 4.62 10^6/uL (4.1-5.3) 06/06/22 21:15 Hgb 14.2 g/dL (11.7-16.6) 06/06/22 21:15 Hct 42.5 % (42.0-52.0) 06/06/22 21:15 MCV 92.0 fl (80-94) 06/06/22 21:15 MCH 30.7 pg (28.0-34.0) 06/06/22 21:15 MCHC 33.4 g/dL (30.0-36.0) 06/06/22 21:15 RDW 15.0 % (12.1-15.1) 06/06/22 21:15 Plt Count 131 10^3/cmm (130-400) 06/06/22 21:15 MPV 10.6 fL (7.4-10.4) H 06/06/22 21:15 Neut % (Auto) 55.6 % 06/06/22 21:15 Lymph % (Auto) 33.7 % 06/06/22 21:15 Johnson % (Auto) 6.1 % 06/06/22 21:15 Eos % (Auto) 2.9 % 06/06/22 21:15 Baso % (Auto) 1.0 % 06/06/22:15 Neut # (Auto) 3.28 10^3/uL (1.8-7.7) 06/06/22 21:15 Lymph # (Auto) 2.0 10^3/uL (0.8-4.8) 06/06/22 21:15 Johnson # (Auto) 0.4 10^3/uL (0.2-0.9) 06/06/22 21:15 Eos # (Auto) 0.2 10^3/uL (0.0-0.8) 06/06/22 21:15 Baso # (Auto) 0.1 10^3/uL (0.0-0.1) 06/06/22 21:15 Nucleated RBC % (auto) 0 % 06/06/22 21:15 Nucleated RBCs # 0.0 /100WBC 06/06/22 21:15 PT 16.60 SECONDS (12.1-14.9) H 06/06/22 21:15 INR 1.30 (0.8-1.2) H 06/06/22 21:15 Sodium 142 mmol/L (136-145) 06/06/22 21:15 Potassium 4.5 mmol/L (3.5-5.1) 06/06/22 21:15 Chloride 106 mmol/L (98-107) 06/06/22 21:15 Carbon Dioxide 25 mmol/L (22-29) 06/06/22 21:15 Anion Gap 15.5 (5-19) 06/06/22 21:15 BUN 26 mg/dL (8-23) H 06/06/22 21:15 Creatinine 1.4 mg/dL (0.7-1.2) H 06/06/22 21:15 GFR Calculation Not Reportable 06/06/22 21:15 Glucose 123 mg/dL (65-115) H 06/06/22 21:15 POC Glucose 169 mg/dL (70-110) H 06/06/22 20:43 Calculated Osmolality 300 mOsm/kg (285-295) H 06/06/22 21:15 Calcium 8.8 mg/dL (8.5-10.5) 06/06/22 21:15 Total Bilirubin 0.6 mg/dL (0.15-1.2) 06/06/22 21:15 AST 18 U/L (0-40) 06/06/22 21:15 ALT 22 U/L (0-41) 06/06/22 21:15 Alkaline Phosphatase 68 U/L (40-130) 06/06/22 21:15 Troponin T Baseline 12 ng/L (0-15) 06/06/22 21:15 Total Protein 6.9 g/dL (6.6-8.7) 06/06/22 21:15 Albumin 4.2 g/dL (3.5-5.2) 06/06/22 21:15 Globulin 2.7 g/dL (1.3-4.6) 06/06/22 21:15 Lipase 37 U/L (13-60) 06/06/22 21:15 EKG Data EKG 1: I personally reviewed and interpreted this EKG as follows: EKG interpretation date: 06/06/22 EKG interpretation time: 20:50 Interpretation: nsr hr [address] or t wave abnormalities qrs 109 qtc 424 Discharge Plan Discharge Patient Disposition: Admitted As Inpatient Clinical Impression: Dizziness, Chest pain Condition: Stable Prescriptions: No Action metformin 500 mg tablet See Rx Instructions .ROUTE .COMPLEX Qty: 180 0RF Dose Instruction: TAKE 1 TABLET BY MOUTH TWICE DAILY FOR DIABETES Rx Instructions: TAKE 1 TABLET BY MOUTH TWICE DAILY FOR DIABETES carvedilol 12.5 mg tablet 12.5 mg PO BID 90 Days Qty: 180 2RF losartan-hydrochlorothiazide 100-25 mg tablet 1 tab PO QAM 90 Days Qty: 90 2RF Rx Instructions: 340B clonidine HCl 0.1 mg tablet 0.1 mg PO BID 90 Days Qty: 180 2RF Rx Instructions: FOR BLOOD PRESSURE spironolactone 25 mg tablet 25 mg PO DAILY 90 Days Qty: 90 2RF gabapentin 300 mg capsule 300 mg PO QID 90 Days Qty: 360 2RF aspirin [Adult Aspirin Regimen] 81 mg tablet,delayed release (DR/EC) 81 mg PO DAILY triamcinolone acetonide 0.1 % cream 1 applic topical DAILY Qty: 80 2RF Rx Instructions: to lower legs feiklquazisvjkj-pnpvgzgih-SC [Bromfed DM] 2-30-10 mg/5 mL syrup 7.5 ml PO Q6H PRN (Reason: cold symptoms) Qty: 160 0RF (DME) Blood Glucose Test Strip See Rx Instructions .Route Qty: 50 2RF Rx Instructions: Test once daily Jardiance 25 mg tablet See Rx Instructions .ROUTE .COMPLEX Qty: 30 3RF Dose Instruction: TAKE ONE TABLET BY MOUTH EVERY MORNING Rx Instructions: TAKE ONE TABLET BY MOUTH EVERY MORNING Referrals: Rylie Chun MD [Primary Care Provider] - Coding Level of Care Code ED Director Of Public Relations for Chg Fwd NIH stroke score NIHSS Level Of Consciousness - 1a: 0 Level Of Consciousness Questions - 1b: Both Correct Level Of Consciousness Commands - 1c: Both Correct Best Gaze - 2: Normal Visual Beatty - 3: No Visual Loss Facial Palsy - 4: Normal Motor Arm Right - 5: No Drift Motor Arm Left - 5: No Drift Motor Leg Right - 6: No Drift Motor Leg Left - 6: No Drift Limb Ataxia - 7: Absent Sensory - 8: Normal Best Language - 9: No Aphasia Dysarthia - 10: Normal Extinction And Inattention - 11: 0 Score Total Score: 0
[2022-06-06 22:05] LABS: Alanine Aminotransferase 22 U/L (0-41); Albumin Level 4.2 g/dL (3.5-5.2); Alkaline Phosphatase 68 U/L (40-130); Anion Gap 15.5 (5-19); Aspartate Amino Transferase 18 U/L (0-40); Blood Urea Nitrogen 26 mg/dL (8-23); Calcium 8.8 mg/dL (8.5-10.5); Carbon Dioxide 25 mmol/L (22-29); Chloride 106 mmol/L (98-107); Globulin 2.7 g/dL (1.3-4.6); Glucose 123 mg/dL (65-115); Lipase 37 U/L (13-60); Osmolality Calculated 300 mOsm/kg (285-295); Potassium 4.5 mmol/L (3.5-5.1); Sodium 142 mmol/L (136-145); Total Bilirubin 0.6 mg/dL (0.15-1.2); Total Protein 6.9 g/dL (6.6-8.7)
[2022-06-06 22:28] LABS: Troponin(5th) Baseline 12 ng/L (0-15)
[2022-06-07] VITALS (7 sets, daily range): BP systolic 155–179; BP diastolic 67–74; PULSE 55–73; RESP 15–19; TEMP 36.4–36.8; O2SAT 96–98; BMI 30.9
[2022-06-07 00:10] LABS: Troponin 5 2HR 12.34 ng/L (0-15)
[2022-06-07 00:13] LABS: Troponin 5 2HR Delta 0.34 ABS# (0-10)
--- NOTE | 2022-06-07 01:15 | PM.HP ---
Providers/Chief Complaint Admitting Physician: Neil Mcbride MD Primary Care Provider: Rylie Chun MD Chief Complaint: weakness, stroke like symptoms History of Present Illness Paresh Lynch is a 71 year old male with a past medical history noninsulin-dependent type 2 diabetes mellitus, hypertension, history of A-fib with RVR in the ER 2 hours, who presents to [facility] for dizziness episodes. Patient tells me that roughly 2 weeks ago he had episodes of unsteadiness, dizziness, he went to his primary care provider who thought it was a TIA. He tells me again today he had these episodes in which she felt unsteady on his feet, no vertigo, no facial droop, no slurring of his words, he did have some numbness of his upper lip, no focal weakness, no blurry vision, he had a few episodes, he tells me he was unsteady on his feet, thus he came to the emergency room. He denies any chest pain, no palpitations. No fevers, no chills. No cough. No dysuria. No falls. Review of Systems Const: Denies: fever(s), chills or fatigue Eyes: Denies: change in vision Card: Denies: chest pain or palpitations Resp: Denies: dyspnea or productive cough GI: Denies: abdominal pain : Denies: flank pain, difficulty urinating or dysuria Musc: Denies: back pain Skin/Breast: Denies: rash Neuro: Reports: dizziness; Denies: headache(s), numbness in extremities or weakness in extremities Psych: Denies: anxiety Endo: Denies: polyuria Medications/Allergies Home Medications Medication Instructions Recorded Confirmed Last Taken Type blood sugar diagnostic (Blood #50 ea 12/19/20 03/01/22 Unknown Rx Glucose Test strips) carvedilol 12.5 mg tablet 12.5 mg PO BID 90 days #180 tabs 01/11/22 03/01/22 Unknown Rx clonidine HCl 0.1 mg tablet 0.1 mg PO BID 90 days #180 tabs 01/11/22 03/01/22 Unknown Rx gabapentin 300 mg capsule 300 mg PO QID 90 days #360 caps 01/11/22 03/01/22 Unknown Rx losartan 100 1 tab PO QAM 90 days #90 tabs 01/11/22 03/01/22 Unknown Rx mg-hydrochlorothiazide 25 mg tablet metformin 500 mg tablet See Rx Instructions .Route 01/11/22 03/01/22 Unknown Rx .COMPLEX #180 tabs spironolactone 25 mg tablet 25 mg PO DAILY 90 days #90 tabs 01/11/22 03/01/22 Unknown Rx darhpbeyjyirazs-dvxrhuhcgrgbzea-OA 7.5 ml PO Q6H PRN cold symptoms 02/25/22 03/01/22 Unknown Rx 2 mg-30 mg-10 mg/5 mL oral syrup #160 mL (Bromfed DM) triamcinolone acetonide 0.1 % 1 applic topical DAILY #80 grams 02/25/22 03/01/22 Unknown Rx topical cream empagliflozin 25 mg tablet See Rx Instructions .Route 03/29/22 Unknown Rx (Jardiance) .COMPLEX #30 tabs aspirin 81 mg tablet,delayed 81 mg PO DAILY 04/12/22 04/12/22 Unknown History release (Adult Aspirin Regimen) Allergies Allergy/AdvReac Type Severity Reaction Status Date / Time Penicillins Allergy rash Verified 06/06/22 20:54 glipizide AdvReac Intermediate itching Verified 06/06/22 20:54 PFSH Acute PFSH: Medical History (Updated 06/07/22 @ 01:21 by Neil Mcbride MD) Diabetes Intolerance to glipizide, high-dose Metformin causes diarrhea Diabetic neuropathy Erectile dysfunction Hypertension Surgical History (Updated 06/07/22 @ 01:19 by Neil Mcbride MD) No pertinent past surgical history Family History Other CAD (coronary artery disease) Diabetes Denies family history of Stroke Social History Smoking and tobacco status: former smoker (quit 1998) Alcohol intake: never Vitals/I&O/Wt Last Vital Signs Temp 98.8 F 06/06/22 20:48 Pulse 61 06/07/22 00:54 Resp 14 06/06/22 20:48 BP 156/70 06/07/22 00:54 Pulse Ox 97 06/07/22 00:54 O2 Del Method Room Air 06/07/22 00:54 Weight last 48 hrs Weight 99.79 kg Physical Exam Const: COMMON NORMALS: no acute distress and patient oriented x3 HENMT: COMMON NORMALS: normocephalic HEAD & SCALP: normocephalic Eye: COMMON NORMALS: Equal, round and reactive pupils present and EOMs intact bilaterally Neck/C-Spine: COMMON NORMALS: no JVD Lymph: LYMPHATIC: no lymphadenopathy noted Resp: COMMON NORMALS: normal respiratory effort, No retractions, No use of accessory muscles and clear to auscultation bilaterally AUSCULTATION: clear to auscultation bilaterally Cardio: COMMON NORMALS: no JVD, regular rate, regular rhythm, S1 normal heart sound present and S2 normal heart sound present RATE: regular rate RHYTHM: regular rhythm HEART SOUNDS: S1 normal heart sound present and S2 normal heart sound present GI: COMMON NORMALS: Normal to inspection, nondistended, normoactive bowel sounds present, Soft to palpation, non-tender, no masses and no bruits Extremity: COMMON NORMALS: no pedal edema Neuro: COMMON NORMALS: patient oriented x3, CN's II-XII intact bilaterally, moves all extremities and no focal motor deficits Psych: COMMON NORMALS: mental status grossly normal Data 06/06/22 21:15 06/06/22 21:15 A&P Assessment and plan (1) Dizziness: (2) CVA (cerebral vascular accident): (3) Intermittent atrial fibrillation: (4) Posterior circulation stroke: Plan Dizziness -With concerns for CVA -UA, orthostatic vitals pending -CT head no acute findings -CTA head and neck -1. 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 2. Moderate stenosis in the P2 segment of the left posterior cerebral artery. ?-Above findings concerning for posterior circulation stroke Plan -Admit to [facility] -Neurochecks, aspiration precautions, NIH stroke scale -Allow for permissive hypertension, treat if systolic greater than 220 or diastolic greater than 120 -We will order cardiac echo -MRI of the brain -Aspirin, statin -Patient has a history of intermittent A-fib, could be possibly have embolic phenomenon with his underlying paroxysmal A-fib? Not on anticoagulation, discussed with neurology in a.m. consider placing on anticoagulation -PT OT -Speech therapy eval -Full code Type 2 diabetes mellitus, low-dose sliding scale Hypertension, hold blood pressure medications Paroxysmal atrial fibrillation Attestations Medical Necessity Statement*: Patient requires hospitalization, outpatient observation, for concerns for CVA Coding Level of Care Code Acute Code for Chg Fwd Diagnoses Dizziness R42 CVA (cerebral vascular accident) I63.9 Intermittent atrial fibrillation I48.0 Posterior circulation stroke I63.50
--- NOTE | 2022-06-07 01:49 | USCV_ITS ---
Paresh Lynch Age: 71 Gender: M : 1950 Exam Date: 06/07/2022 09:02 Ordering Phys: Neil Mcbride MD Technologist: Abimael Medel Exam Location: [facility] Indication: SHORTNESS OF BREATH BP: 145 / 70 HR: 64 Rhythm: Sinus Technical Quality: Adequate MEASUREMENTS (Male / Female) Normal Values 2D ECHO LV Diastolic Diameter PLAX 4.5 cm 4.2 - 5.9 / 3.9 - 5.3 cm LV Systolic Diameter PLAX 2.6 cm IVS Diastolic Thickness 1.1 cm 0.6 - 1.0 / 0.6 - 0.9 cm IVS Systolic Thickness 1.8 cm LVPW Diastolic Thickness 1.1 cm 0.6 - 1.0 / 0.6 - 0.9 cm LVPW Systolic Thickness 1.5 cm LVOT Diameter 2.1 cm LV Ejection Fraction 2D Teich 74.0 % LV Ejection Fraction MOD 2C 73.6 % LV Ejection Fraction 2C AL 73.1 % LA Diameter 3.8 cm IVC Diameter 1.6 cm M-MODE Aortic Annulus Diameter 3.5 cm LA Ao Ratio MM 1.1 MV E Point Septal Separation 0.8 cm DOPPLER AV Peak Velocity 110.0 cm/s LVOT Peak Velocity 87.0 cm/s AV Area Cont Eq vti 3.2 cm squared AV Area Cont Eq pk 2.6 cm squared MV Area PHT 5.0 cm squared Mitral E to A Ratio 1.0 MV E' Velocity 45.0 cm/s Mitral E to MV E' Ratio 13.0 Mitral E to LV E' Lateral Ratio 13.6 Mitral E to LV E' Septal Ratio 12.4 TR Peak Velocity 216.7 cm/s TR Peak Gradient 18.8 mmHg TV Peak E Velocity 95.0 cm/s Right Atrial Pressure 3.0 mmHg Pulmonary Artery Systolic Pressu 21.8 mmHg RV Acceleration Time 0.2 s FINDINGS Left Ventricle Normal left ventricular size, systolic function and wall thickness, with no regional wall motion abnormalities. Left ventricular ejection fraction is estimated at 65 %. Grade II/IV diastolic dysfunction, moderately elevated filling pressures. Right Ventricle Normal right ventricular size and systolic function. Normal right ventricular systolic pressure. Right Atrium The right atrium is normal in size. Left Atrium The left atrium is normal in size. Mitral Valve Structurally normal mitral valve without significant stenosis or prolapse. There is no mitral regurgitation. Aortic Valve Structurally normal aortic valve without significant sclerosis or stenosis. There is no aortic regurgitation. Tricuspid Valve Structurally normal tricuspid valve without significant stenosis or regurgitation. Pulmonary artery systolic pressure is normal. Pulmonic Valve Pulmonic valve not well visualized. Pericardium Normal pericardium without effusion. Aorta Normal ascending aorta dimension. IVC Inferior vena cava not visualized. CONCLUSIONS Normal left ventricular size, systolic function and wall thickness, with no regional wall motion abnormalities. Left ventricular ejection fraction is estimated at 65 %. Grade II/IV diastolic dysfunction, moderately elevated filling pressures. No change from 11/16/2019 Dr. Diallo Hassan MD (Electronically Signed) Final Date: 07 June 2022 16:15 S
--- NOTE | 2022-06-07 01:49 | MR_ITS ---
WS: [id number] MRI HEAD WITHOUT CONTRAST TECHNIQUE: Sagittal T1, T2 axial, T2 axial FLAIR, axial and coronal T1 images, axial susceptibility w eighted imaging, axial diffusion weighted images, and coronal T2 images were obtained. CLINICAL INFORMATION: cva COMPARISON: CT head June 06, 2022 FINDINGS: No evidence restricted diffusion to suggest acute ischemia. Ventricular system and basal cisterns are patent. Minimal small vessel changes. No significant parenchymal volume loss. Normal posterior fossa . Normal vascular flow voids at the skull base. No extra-axial fluid collections. No evidence of mass or mass effect. Mild mucosal thickening in the paranasal sinuses. Retention cyst in the maxillary sinuses largest in the LEFT measuring 2.2 CM. Normal optic chiasm and pituitary infundibulum. Temporal lobes and hippoc ampal formations are normal in appearance. No hemosiderin on the susceptibly weighted images. Mastoid air cells are well aerated. Normal posterior nasopharynx. Normal parapharyngeal fat. MR/MR head wo con* [id number] IMPRESSION: 1. No evidence of restricted diffusion to suggest acute ischemia. 2. Minimal small vessel changes. No significant parenchymal volume loss. 3. No hemosiderin on the susceptibly weighted images. 4. Mild mucosal thickening ethmoid air cells with retention cysts in the maxil cynthia sinuses. Mastoid air cells well aerated. 5. No other suspicious findings.
[2022-06-07] MEDS: pantoprazole 40 mg SDV IVP (02:19)
[2022-06-07] MEDS: sodium chloride 0.9% 1,000 ML 75 ML IV (02:19)
--- NOTE | 2022-06-07 02:57 | ECG_ITS ---
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 Measurements Intervals [place] Rate: 56 P: 52 DC: 174 QRS: -9 QRSD: 109 T: 67 QT: 431 QTc: 418 Interpretive Statements SINUS BRADYCARDIA WITH SINUS ARRHYTHMIA INCOMPLETE RIGHT BUNDLE BRANCH BLOCK [90+ ms QRS DURATION, TERMINAL R IN V1/V2, 40+ ms S IN I/aVL/V4/V5/V6] Compared to ECG 06/06/2022 20:51:16 Sinus rhythm no longer present Electronically Signed On 06-07-2022 15:05:33 CDT by Sumeet Tay M.D. [id number]
[2022-06-07 04:21] LABS: Bilirubin Urine Neg (Negative); Blood Urine Neg (Negative); Glucose Urine UA 4+ (Normal); Ketones Urine Negative (Negative); Nitrate Urine Negative (Negative); Protein Urine Neg (Negative); Specific Gravity, Urine 1.015 (1.005-1.030); Urine Appearance Hazy (CLEAR); Urine Color Light yellow (Yellow); pH Urine 5 (5-7)
[2022-06-07 04:22] LABS: Add Urine Culture? No; Add Urine Microscopic? YES; Leukocyte Esterase Urine Trace (Negative); Squamous Epithelial Cell Urine 0-4 /hpf (0-5); Urobilinogen Urine 1 mg/dL (Negative); WBC Urine 0-4 /hpf (0-5)
[2022-06-07 04:23] LABS: Troponin 5 6HR 10.52 ng/L (0-15)
[2022-06-07 04:41] LABS: Troponin 5 6HR Delta -1.48 ng/L (0-12)
[2022-06-07 04:51] LABS: Chol HDL Ratio 5.14 mg/dL (1.0-5.00); Cholesterol 113 mg/dL (0-200); HDL Cholesterol 22 mg/dL (60-100); Triglycerides 444 mg/dL (0-150)
[2022-06-07 05:08] LABS: LDL Cholesterol Direct 43 mg/dL (0-100)
[2022-06-07] MEDS: aspirin 81 mg EC Tablet PO (08:26)
[2022-06-07] MEDS: gabapentin 300 mg Capsule PO (08:26)
[2022-06-07] MEDS: atorvastatin 40 mg Tablet PO (08:26)
--- NOTE | 2022-06-07 11:14 | PC.NURSE ---
heart sounded almost like a gallop.
--- NOTE | 2022-06-07 11:47 | PM.DCS ---
Discharge Providers Date of Admission: 06/07/22 00:17 Date of Discharge: June 07, 2022 Attending Provider at Admission: Neil Mcbride MD Attending Provider at Discharge: Mina Griffin MD Primary Care Provider: Rylie Chun MD Diagnoses at Discharge Discharge Diagnosis (1) Dizziness: Status: Acute (2) CVA (cerebral vascular accident): Status: Acute (3) Intermittent atrial fibrillation: Status: Acute (4) Posterior circulation stroke: Status: Acute Reason for Visit Reason for Visit: 61299 cva Brief History: History as per HPI: Paresh Lynch is a 71 year old male with a past medical history noninsulin-dependent type 2 diabetes mellitus, hypertension, history of A-fib with RVR in the ER 2 hours, who presents to [facility] for dizziness episodes.? Patient tells me that roughly 2 weeks ago he had episodes of unsteadiness, dizziness, he went to his primary care provider who thought it was a TIA.? He tells me again today he had these episodes in which she felt unsteady on his feet, no vertigo, no facial droop, no slurring of his words, he did have some numbness of his upper lip, no focal weakness, no blurry vision, he had a few episodes, he tells me he was unsteady on his feet, thus he came to the emergency room.? He denies any chest pain, no palpitations.? No fevers, no chills.? No cough.? No dysuria.? No falls. Hospital Course Hospital Course Patient was admitted to the hospital further evaluation and management of symptoms concerning for posterior circulation CVA. On admission CTA was done which showed severe right and left posterior circulation stenosis. He was evaluated by PT/OT/speech therapy. During hospitalization patient was found to have multiple episodes of bradycardia. MRI was done which was negative for any acute stroke. Patient did not have repeat symptoms during hospitalization. There were concerns for proximal A-fib as an outpatient though recent Holter monitor showed occasional bradycardia. Patient did not have any A-fib during hospitalization. 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 His home dose of carvedilol was withheld. 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 Patient had advised for further adjustment of antihypertensives given renal dysfunction and bradycardia that as he was unwilling to stay he was advised to stop carvedilol on discharge while other antihypertensives were continued with advised to follow-up with neurology in 2 weeks, PCP in 1 week to 10 days with blood pressure diary. For further evaluation of possible paroxysmal A-fib or significant bradycardia event monitor was arranged prior to discharge. Possible empiric anticoagulation were discussed in detail with the patient though he wanted to avoid anticoagulation as much as possible given possible bleeding diathesis in the past. Patient wanted to continue further evaluation before starting of anticoagulation. Physical Exam Const: COMMON NORMALS: no acute distress and patient oriented x3 HENMT: COMMON NORMALS: normocephalic HEAD & SCALP: normocephalic Eye: COMMON NORMALS: Equal, round and reactive pupils present and EOMs intact bilaterally PUPIL: Yes Equal, round and reactive pupils present Neck/C-Spine: COMMON NORMALS: no JVD Lymph: LYMPHATIC: no lymphadenopathy noted Resp: COMMON NORMALS: normal respiratory effort, No retractions, No use of accessory muscles and clear to auscultation bilaterally AUSCULTATION: clear to auscultation bilaterally Cardio: COMMON NORMALS: no JVD, regular rate, regular rhythm, S1 normal heart sound present and S2 normal heart sound present RATE: regular rate RHYTHM: regular rhythm HEART SOUNDS: S1 normal heart sound present and S2 normal heart sound present GI: COMMON NORMALS: Normal to inspection, nondistended, normoactive bowel sounds present, Soft to palpation, non-tender, no masses and no bruits PALPATION: Yes Soft to palpation Extremity: COMMON NORMALS: no pedal edema Neuro: COMMON NORMALS: patient oriented x3, CN's II-XII intact bilaterally, moves all extremities and no focal motor deficits Psych: COMMON NORMALS: mental status grossly normal Discharge Data Studies Completed and Pending Completed Studies During Hospitalization Category Date Time Status CT angio head neck [CT angio headneck* [id number]] Cat Scan 06/06/22 20:[address] head wo con* [id number] Stat Cat Scan 06/06/22 20:57 Completed XR chest 1V portable [id number] Stat Exams 06/06/22 20:57 Completed Pending at discharge Category Date Time Status Complete Blood Count w/Auto AM LABS Lab 06/08/22 04:00 Ordered Comprehensive Metabolic Panel AM LABS Lab 06/08/22 04:00 Ordered Hemoglobin A1C AM LABS Lab 06/08/22 04:00 Ordered Magnesium AM LABS Lab 06/08/22 04:00 Ordered Thyroid Stimulating Hormone AM LABS Lab 06/08/22 04:00 Ordered MR head wo con* [id number] Routine MRI 06/07/22 01:49 Taken MR head wo con* [id number] Routine MRI 06/23/22 16:00 Unverified CV. echo complete* [id number] Routine Ultrasound 06/07/22 01:49 Taken Radiology Impressions Chest X-Ray 06/06/22 20:57 IMPRESSION: Cardiomegaly, negative for infiltrate. Head CT 06/06/22 20:57 IMPRESSION: 1. No acute intracranial abnormality. Head/Neck CTA 06/06/22 20:57 IMPRESSION: 1. 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 2. Moderate stenosis in the P2 segment of the left posterior cerebral artery. IMPRESSION: 1. No large artery occlusion or stenosis. REFERENCES: NASCET CRITERIA. The degree of stenosis in the cervical segment of the internal carotid artery is based on NASCET criteria. Normal is no stenosis. Mild is less than 50% stenosis. Moderate is 50-69% stenosis. Severe is 70% to 99% stenosis. Total occlusion is no detectable patent lumen. Laboratory Results WBC 5.9 10^3/uL (4.0-10.0) 06/06/22 21:15 RBC 4.62 10^6/uL (4.1-5.3) 06/06/22 21:15 Hgb 14.2 g/dL (11.7-16.6) 06/06/22 21:15 Hct 42.5 % (42.0-52.0) 06/06/22 21:15 MCV 92.0 fl (80-94) 06/06/22 21:15 MCH 30.7 pg (28.0-34.0) 06/06/22 21:15 MCHC 33.4 g/dL (30.0-36.0) 06/06/22 21:15 RDW 15.0 % (12.1-15.1) 06/06/22 21:15 Plt Count 131 10^3/cmm (130-400) 06/06/22 21:15 MPV 10.6 fL (7.4-10.4) H 06/06/22 21:15 Neut % (Auto) 55.6 % 06/06/22 21:15 Lymph % (Auto) 33.7 % 06/06/22 21:15 [place] % (Auto) 6.1 % 06/06/22 21:15 Eos % (Auto) 2.9 % 06/06/22 21:15 Baso % (Auto) 1.0 % 06/06/22 21:15 Neut # (Auto) 3.28 10^3/uL (1.8-7.7) 06/06/22 21:15 Lymph # (Auto) 2.0 10^3/uL (0.8-4.8) 06/06/22 21:15 [place] # (Auto) 0.4 10^3/uL (0.2-0.9) 06/06/22 21:15 Eos # (Auto) 0.2 10^3/uL (0.0-0.8) 06/06/22 21:15 Baso # (Auto) 0.1 10^3/uL (0.0-0.1) 06/06/22 21:15 Nucleated RBC % (auto) 0 % 06/06/22 21:15 Nucleated RBCs # 0.0 /100WBC 06/06/22 21:15 PT 16.60 SECONDS (12.1-14.9) H 06/06/22 21:15 INR 1.30 (0.8-1.2) H 06/06/22 21:15 Sodium 142 mmol/L (136-145) 06/06/22 21:15 Potassium 4.5 mmol/L (3.5-5.1) 06/06/22 21:15 Chloride 106 mmol/L (98-107) 06/06/22 21:15 Carbon Dioxide 25 mmol/L (22-29) 06/06/22 21:15 Anion Gap 15.5 (5-19) 06/06/22 21:15 BUN 26 mg/dL (8-23) H 06/06/22 21:15 Creatinine 1.4 mg/dL (0.7-1.2) H 06/06/22 21:15 GFR Calculation Not Reportable 06/06/22 21:15 Glucose 123 mg/dL (65-115) H 06/06/22 21:15 POC Glucose 169 mg/dL (70-110) H 06/06/22 20:43 Calculated Osmolality 300 mOsm/kg (285-295) H 06/06/22 21:15 Calcium 8.8 mg/dL (8.5-10.5) 06/06/22 21:15 Total Bilirubin 0.6 mg/dL (0.15-1.2) 06/06/22 21:15 AST 18 U/L (0-40) 06/06/22 21:15 ALT 22 U/L (0-41) 06/06/22 21:15 Alkaline Phosphatase 68 U/L (40-130) 06/06/22 21:15 Troponin T Baseline 12 ng/L (0-15) 06/06/22 21:15 Troponin T 120 Minute 12.34 ng/L (0-15) 06/06/22 23:42 Delta Troponin T 0.34 ABS# (0-10) 06/06/22 23:42 Troponin T Hi Sens 6Hr 10.52 ng/L (0-15) 06/07/22 03:49 Troponin T Hi Sens 6Hr Delta -1.48 ng/L (0-12) L 06/07/22 03:49 Total Protein 6.9 g/dL (6.6-8.7) 06/06/22 21:15 Albumin 4.2 g/dL (3.5-5.2) 06/06/22 21:15 Globulin 2.7 g/dL (1.3-4.6) 06/06/22 21:15 Triglycerides 444 mg/dL (0-150) H 06/07/22 03:49 Cholesterol 113 mg/dL (0-200) 06/07/22 03:49 LDL Cholesterol Direct 43 mg/dL (0-100) 06/07/22 03:49 LDL Cholesterol, Calc Not Reportable 06/07/22 03:49 HDL Cholesterol 22 mg/dL (60-100) L 06/07/22 03:49 LDL/HDL Ratio Not Reportable 06/07/22 03:49 Cholesterol/HDL Ratio 5.14 mg/dL (1.0-5.00) H 06/07/22 03:49 Lipase 37 U/L (13-60) 06/06/22 21:15 Urine Color Light yellow (Yellow) 06/07/22 04:00 Urine Appearance Hazy (CLEAR) A 06/07/22 04:00 Urine pH 5 (5-7) 06/07/22 04:00 Ur Specific [place] 1.015 (1.005-1.030) 06/07/22 04:00 Urine Protein Neg (Negative) 06/07/22 04:00 Urine Glucose (UA) 4+ (Normal) H 06/07/22 04:00 Urine Ketones Negative (Negative) 06/07/22 04:00 Urine Blood Neg (Negative) 06/07/22 04:00 Urine Nitrate Negative (Negative) 06/07/22 04:00 Urine Bilirubin Neg (Negative) 06/07/22 04:00 Urine Urobilinogen 1 mg/dL (Negative) H 06/07/22 04:00 Ur Leukocyte Esterase Trace (Negative) H 06/07/22 04:00 Urine RBC None /hpf (0-2) 06/07/22 04:00 Urine WBC 0-4 /hpf (0-5) H 06/07/22 04:00 Ur Squamous Epith Cells 0-4 /hpf (0-5) H 06/07/22 04:00 Amorphous Sediment Not Reportable 06/07/22 04:00 Urine Bacteria None /hpf (NONE) 06/07/22 04:00 Vitals Last Vital Signs Temp 98 F 06/07/22 08:00 Pulse 59 L 06/07/22 08:00 Resp 17 06/07/22 08:00 BP 161/69 06/07/22 08:00 Pulse Ox 96 06/07/22 08:00 O2 Del Method Room Air 06/07/22 04:43 Discharge Plan Discharge Patient Disposition: Home Condition: Stable Prescriptions: New atorvastatin 40 mg Tablet 40 mg PO DAILY Qty: 30 0RF Continued losartan-hydrochlorothiazide 100-25 mg tablet 1 tab PO QAM 90 Days Qty: 90 2RF Rx Instructions: 340B clonidine HCl 0.1 mg tablet 0.1 mg PO BID 90 Days Qty: 180 2RF Rx Instructions: FOR BLOOD PRESSURE spironolactone 25 mg tablet 25 mg PO DAILY 90 Days Qty: 90 2RF gabapentin 300 mg capsule 300 mg PO QID 90 Days Qty: 360 2RF aspirin [Adult Aspirin Regimen] 81 mg tablet,delayed release (DR/EC) 81 mg PO DAILY triamcinolone acetonide 0.1 % cream 1 applic topical DAILY Qty: 80 2RF Rx Instructions: to lower legs (DME) Blood Glucose Test Strip See Rx Instructions .Route Qty: 50 2RF Rx Instructions: Test once daily Jardiance 25 mg tablet See Rx Instructions .ROUTE .COMPLEX Qty: 30 3RF Dose Instruction: TAKE ONE TABLET BY MOUTH EVERY MORNING Rx Instructions: TAKE ONE TABLET BY MOUTH EVERY MORNING Discontinued metformin 500 mg tablet See Rx Instructions .ROUTE .COMPLEX Qty: 180 0RF Dose Instruction: TAKE 1 TABLET BY MOUTH TWICE DAILY FOR DIABETES Rx Instructions: TAKE 1 TABLET BY MOUTH TWICE DAILY FOR DIABETES carvedilol 12.5 mg tablet 12.5 mg PO BID 90 Days Qty: 180 2RF Discharge Orders: Discharge Order (Routine); Ordered 06/07/22 Ordered By: Mina Griffin Other Ambulatory Orders: MCT/Event Monitor 21 Days (Routine) Timeframe: 1 Week Facility: [facility] - Location: Radiology Ordered By: Mina Griffin Referrals: Minal Ayala MD [Physician] - 06/27/22 8:30 am Yesi Baker FNP [Nurse Practitioner] - 06/14/22 10:15 am Rylie Chun MD [Primary Care Provider] - 06/08/22 9:45 am Discharge Diet: Cardiac and Diabetic Discharge Activity: Resume usual activity and Increase activity as tolerated Patient Instructions: Atorvastatin (By mouth), Opioid Safety, Stroke Stoplight Activity Restrictions/Additional Instructions: APPOINTMENT FOR HEART MONITOR JUNE 14 AT 10:15 HEN HEART MONITOR 11:00 Do not take carvedilol going forward for now. Continue other antihypertensives as before. Check your blood pressure daily at home and maintain a blood pressure diary. Further adjustment of antihypertensives when you follow-up with your primary care provider. Please follow-up with neurology/Dr. Ayala within 2 weeks. Please make sure you follow-up as an outpatient for event monitor placement. Discharge Attestations Time Spent in Discharge Care*: greater than 30 min Specific Discharge Activities: educating patient, discussing with pcp/other providers, discussing with registered nurse hh case manager/social workers/dc planners, documenting/other paperwork and evaluating patient/reviewing data Status at Discharge: Cognitive status at discharge: cognitively intact, Behavioral status at discharge: cooperative, Functional status at discharge: independent ambulation, Overall status at discharge: patient is back to baseline Quality Metrics Clinical Quality Measures [ No reported AMI, CVA or VTE this stay] Coding Level of Care Code 71721 Total time (in minutes) for Discharge: 50 Diagnoses Dizziness R42 CVA (cerebral vascular accident) I63.9 Intermittent atrial fibrillation I48.0 Posterior circulation stroke I63.50
--- NOTE | 2022-06-07 11:55 | PC.NURSE ---
blood sugar this morning was 139, noon was 177.
--- NOTE | 2022-06-07 14:30 | PC.OT ---
OT EVALUATION ATTEMPTED IN A.M. AND PATIENT OUT OF ROOM. PATIENT NOW HAS D/C ORDERS IN; NO OT EVALUATION ATTEMPTED.
[2022-06-08 07:06] LABS: Glucose Point of Care 177 mg/dL (70-110)
[2022-06-08 07:06] LABS: Glucose Point of Care 139 mg/dL (70-110)
[2022-06-08 07:06] LABS: Glucose Point of Care 134 mg/dL (70-110)
== END 2022-06-07 14:00 | disposition home or self-care (01) ==
LOC: ER 23:44 → MEDSURG 06-07 00:17
PROVIDERS: Admitting Provider Family Medicine; Emergency Provider Emergency Medicine; PCP Family Medicine; Visit Provider Student in an Organized Health Care Education/Training Program
DX: I63.533 Cerebral infarction due to unspecified occlusion or stenosis of bilateral posterior cerebral arteries (principal); I48.0 Paroxysmal atrial fibrillation; E11.40 Type 2 diabetes mellitus with diabetic neuropathy, unspecified; I10 Essential (primary) hypertension; I45.10 Unspecified right bundle-branch block; I49.1 Atrial premature depolarization; Z87.891 Personal history of nicotine dependence; Z79.84 Long term (current) use of oral hypoglycemic drugs; Z79.82 Long term (current) use of aspirin; Z82.49 Family history of ischemic heart disease and other diseases of the circulatory system
CPT/HCPCS: 36415; 36416; 70450; 70496; 70498; 70551; 71045; 80053; 80061; 81001; 82962; 83690; 83721; 84484; 85025; 85610; 92610; 93005; 93306; 94664; 96361; 96374; 96375; 97161; 99285; C9113; G0378; J7030; Q9967

== ENCOUNTER → 2022-06-21 14:02 | Outpatient (BNVA) | payer MEDICARE, SELFPAY | PROVIDERS: PCP Family Medicine; Visit Provider Nurse Practitioner Family | DX: G62.89 Other specified polyneuropathies (principal); R44.9 Unspecified symptoms and signs involving general sensations and perceptions; Z86.73 Personal history of transient ischemic attack (TIA), and cerebral infarction without residual deficits; Z87.891 Personal history of nicotine dependence; E78.5 Hyperlipidemia, unspecified; E11.9 Type 2 diabetes mellitus without complications; Z79.84 Long term (current) use of oral hypoglycemic drugs; I48.91 Unspecified atrial fibrillation; I10 Essential (primary) hypertension | CPT/HCPCS: 99203; 99214 ==

== ENCOUNTER 2022-06-24 09:25 | Outpatient (CLI) | payer MEDICARE, SELFPAY ==
[2022-06-24 10:18] LABS: Erythrocyte Sedimentation Rate < 1 mm/hr (0-10)
[2022-06-24 10:52] LABS: Calcium 9.1 mg/dL (8.5-10.5); T3 Free 2.7 PG/ML (2.0-4.4); Thyroid Stimulating Hormone 3.22 uIU/mL (0.27-4.20)
[2022-06-24 12:17] LABS: Folate Level 8.9 ng/mL (4.5-32.2)
[2022-06-24 13:04] LABS: Homocysteine 16.15
[2022-06-24 13:19] LABS: 25 Hydroxy Vitamin D 20 ng/mL (30-100); Vitamin B12 304 pg/mL (232-1245)
[2022-06-27 12:59] LABS: COMPLEMENT COMPONENT C3C 112 mg/dL (82-185); COMPLEMENT COMPONENT C4C 20 mg/dL (15-53)
[2022-06-27 13:25] LABS: CENTROMERE B ANTIBODY <1.0 NEG AI (<1.0 NEG); JO-1 ANTIBODY <1.0 NEG AI (<1.0 NEG); RNP ANTIBODY <1.0 NEG AI (<1.0 NEG); SCL-70 ANTIBODY <1.0 NEG AI (<1.0 NEG); SJOGREN'S ANTIBODY (SS-A) <1.0 NEG AI (<1.0 NEG); SM ANTIBODY <1.0 NEG AI (<1.0 NEG); SS-B <1.0 NEG AI (<1.0 NEG)
[2022-06-27 14:30] LABS: COMPLEMENT, TOTAL (CH50) 58 U/mL (31-60)
[2022-06-27 14:59] LABS: Lymes IGG WB <0.90 index
[2022-06-27 15:49] LABS: ANA SCREEN, IFA NEGATIVE (NEGATIVE)
[2022-06-27 16:14] LABS: THYROID PEROXIDASE ANTIBODIES 1 IU/mL (<9)
[2022-06-28 10:04] LABS: Treponema pallidum Ab NON-REACTIVE (NON-REACTIVE)
[2022-06-28 10:15] LABS: DNA AB (DS) CRITHIDIA,IFA NEGATIVE (NEGATIVE)
[2022-06-28 16:29] LABS: Copper Level 87 mcg/dL (70-175)
[2022-06-30 07:38] LABS: Methylmalonic Acid 451 nmol/L (87-318)
[2022-07-01 10:24] LABS: Nicotinamide 24 ng/mL; Nicotinic Acid <20 ng/mL
== END 2022-06-24 09:26 | disposition home or self-care (01) ==
PROVIDERS: PCP Family Medicine; Visit Provider Psychiatry & Neurology Neurology
DX: I10 Essential (primary) hypertension (principal); I63.9 Cerebral infarction, unspecified; N18.30 Chronic kidney disease, stage 3 unspecified
CPT/HCPCS: 36415; 82306; 82310; 82525; 82607; 82746; 83090; 83921; 84439; 84443; 84481; 84591; 85651; 86140; 86160; 86162; 86235; 86255; 86376; 86431; 86617; 86780

== ENCOUNTER → 2022-07-08 11:27 | Outpatient (BNVA) | payer MEDICARE, SELFPAY | PROVIDERS: PCP Family Medicine; Visit Provider Podiatrist Foot & Ankle Surgery | DX: E11.42 Type 2 diabetes mellitus with diabetic polyneuropathy (principal); E11.22 Type 2 diabetes mellitus with diabetic chronic kidney disease; N18.30 Chronic kidney disease, stage 3 unspecified; B35.1 Tinea unguium | CPT/HCPCS: 11721; 99204 ==

== ENCOUNTER → 2022-08-08 12:49 | Outpatient (BNVA) | payer MEDICARE, SELFPAY | PROVIDERS: PCP Family Medicine; Visit Provider Psychiatry & Neurology Neurology | DX: G64 Other disorders of peripheral nervous system (principal); M54.2 Cervicalgia; R26.89 Other abnormalities of gait and mobility; Z86.73 Personal history of transient ischemic attack (TIA), and cerebral infarction without residual deficits; M54.50 Low back pain, unspecified; R44.8 Other symptoms and signs involving general sensations and perceptions; E55.9 Vitamin D deficiency, unspecified; Z87.891 Personal history of nicotine dependence; E78.5 Hyperlipidemia, unspecified; I10 Essential (primary) hypertension | CPT/HCPCS: 99213 ==

== ENCOUNTER → 2022-08-30 08:17 | Outpatient (BNVA) | payer MEDICARE, SELFPAY | PROVIDERS: PCP Family Medicine; Visit Provider Family Medicine | DX: E34.9 Endocrine disorder, unspecified (principal); R79.89 Other specified abnormal findings of blood chemistry; N18.9 Chronic kidney disease, unspecified | CPT/HCPCS: 80048; 84402; 84403 ==

== ENCOUNTER 2022-09-02 10:40 | Outpatient (CLI) | payer MEDICARE, SELFPAY ==
--- NOTE | 2022-09-02 11:00 | MR_ITS ---
WS: [id number] MRI CERVICAL SPINE NONCONTRAST TECHNIQUE: Sagittal T1, T2 and STIR imaging. Axial T2, gradient, and fiesta imaging. Patient refused contrast. CLINICAL INFORMATION: M54.2 - Cervicalgia COMPARISON: None. FINDINGS: Straightening of the normal cervical lordosis. Mild cervical curve. Moderate spondylitic changes. Sli ght anterolisthesis C7 on T1. C2-C3: Mild facet arthropathy worse in the LEFT. Mild LEFT bony foraminal narrowing. Spinal canal is patent. C3-C4: Mild disc osteophytic ridging. Moderate facet arthropathy. Mild LEFT greater than RIGHT bony f oraminal narrowing. C4-C5: Mild disc osteophytic ridging. Mild bilateral bony foraminal narrowing. Moderate facet arthrop athy worse in the LEFT. Spinal canal is patent. C5-C6: Disc osteophyte complex with endplate ridging. Moderate to severe RIGHT and mild LEFT bony for aminal narrowing. Uncovertebral joint hypertrophy. Mild central canal stenosis. Moderate facet arthro sen. C6-C7: Disc osteophyte complex with endplate ridging. Mild central canal stenosis. Moderate to severe RIGHT and moderate LEFT bony foraminal narrowing. Uncovertebral joint hypertrophy. Mild to moderate facet arthropathy. C7-T1: Mild disc bulging with osteophytic ridging. Mild LEFT and no significant RIGHT foraminal narro wing. Spinal canal is patent. Tiny disc protrusions in the upper thoracic spine partially visualized worse at LEFT T1-T2. Polypoid mucosal thickening in the partially visualized maxillary sinuses. MR/MR cervical spin wo con* [id number] IMPRESSION: 1. Straightening of the normal cervical lordosis with moderate spondylitic vandana nges. Cord signal is normal. 2. Mild central canal stenosis C5-C6 and C6-C7 due to disc osteophyte complexe s. 3. Moderate to severe RIGHT C5-C6 and RIGHT C6-C7 bony foraminal narrowing. 4. Mild LEFT C7-T1 bony foraminal narrowing. 5. Moderate facet arthropathy worse at LEFT C3-C4, LEFT C4-C5, and bilateral C 5-C6.
== END 2022-09-02 10:41 | disposition home or self-care (01) ==
PROVIDERS: PCP Family Medicine; Visit Provider Psychiatry & Neurology Neurology
DX: M48.02 Spinal stenosis, cervical region (principal); M25.78 Osteophyte, vertebrae; M47.892 Other spondylosis, cervical region
CPT/HCPCS: 72141

== ENCOUNTER → 2022-09-28 11:03 | Outpatient (BNVA) | payer MEDICARE, SELFPAY | PROVIDERS: PCP Family Medicine; Visit Provider Psychiatry & Neurology Neurology | DX: Z86.73 Personal history of transient ischemic attack (TIA), and cerebral infarction without residual deficits (principal); G64 Other disorders of peripheral nervous system; R26.9 Unspecified abnormalities of gait and mobility; R44.9 Unspecified symptoms and signs involving general sensations and perceptions; Z87.891 Personal history of nicotine dependence; M48.02 Spinal stenosis, cervical region; E11.9 Type 2 diabetes mellitus without complications; Z79.85 Long-term (current) use of injectable non-insulin antidiabetic drugs; I10 Essential (primary) hypertension; I48.91 Unspecified atrial fibrillation; E55.9 Vitamin D deficiency, unspecified; D64.89 Other specified anemias | CPT/HCPCS: 99212 ==

== ENCOUNTER → 2022-11-01 08:31 | Outpatient (BNVA) | payer MEDICARE, SELFPAY | PROVIDERS: PCP Family Medicine; Visit Provider Family Medicine | DX: I10 Essential (primary) hypertension (principal); E11.42 Type 2 diabetes mellitus with diabetic polyneuropathy | CPT/HCPCS: 80053; 83036; 83735 ==

== ENCOUNTER 2022-12-01 07:09 | Emergency (ER) | payer MEDICARE, SELFPAY ==
[2022-12-01 07:24] VITALS: BP 117/49; PULSE 87; RESP 16; TEMP 38.2; O2SAT 94
--- NOTE | 2022-12-01 07:37 | XRR_ITS ---
PROCEDURE INFORMATION: Exam: XR Chest Exam date and time: 12/01/2022 7:52 AM Age: 71 years old Clinical indication: Cough and dyspnea; Patient HX: Feet pain, chills; Additional info: Dyspnea/cough TECHNIQUE: Imaging protocol: Radiologic exam of the chest. Views: 1 view. COMPARISON: CR (CHEST, ) 06/06/2022 9:09 PM FINDINGS: Lungs: Calcified right lung granulomas are again noted. No consolidation. Pleural spaces: Unremarkable. No pleural effusion. No pneumothorax. Heart/Mediastinum: Unremarkable. No cardiomegaly. Bones/joints: Unremarkable. XR/XR chest 1V portable [id number] IMPRESSION: No acute findings.
--- NOTE | 2022-12-01 07:48 | W.ED.GENADLT ---
HPI - General Adult General: Chief complaint: General Medical Stated complaint: feet pain and chills Time Seen by Provider: 12/01/22 07:20 Source: patient Mode of arrival: ambulatory History of Present Illness: 71-year-old male presents emergency room complaining of chills and very slight cough began over the last 2 days. Few weeks ago he had some blood in the stools he has some chronic peripheral neuropathy. Peripheral neuropathy slightly worse today has not had a lot of recurrence of the blood in the stool. No anosmia no diarrhea. No productive cough. Onset (ago): day(s) Severity: mild Pain Consistency: constant Relieving factors: none Exacerbating factors: none Associated symptoms: Reports decreased appetite, malaise, nausea and weakness; Deny chest pain, confusion, cough, diaphoresis, dyspnea, headache(s), rash, palpitations, seizures, short of breath, syncope, vomiting or other Review of Systems Const: Reports: malaise; Denies: fever(s), chills or diaphoresis Card: Denies: chest pain, palpitations or syncope Resp: Denies: dyspnea GI: Reports: nausea; Denies: abdominal pain or vomiting : Denies: dysuria, urinary frequency or urinary urgency Musc: Denies: neck pain or back pain Skin/Breast: Denies: rash Neuro: Denies: headache(s) or confusion PFSH ED PFSH: Medical History Chest pain Diabetes Intolerance to glipizide, high-dose Metformin causes diarrhea Diabetic neuropathy Erectile dysfunction Hypertension Surgical History No pertinent past surgical history Family History Other CAD (coronary artery disease) Diabetes Denies family history of Stroke Social History Smoking and tobacco/nicotine status: former use of tobacco/nicotine Alcohol intake: never Substance/Drug Use: never Physical Exam Const: COMMON NORMALS: no acute distress GENERAL APPEARANCE: cooperative and comfortable ORIENTATION/CONSCIOUSNESS: Yes awake, Yes oriented to person, Yes oriented to place and Yes oriented to time HENMT: COMMON NORMALS: normocephalic, atraumatic and hearing grossly normal bilaterally HEAD & SCALP: normocephalic and atraumatic Resp: COMMON NORMALS: normal respiratory effort, No retractions, No use of accessory muscles and clear to auscultation bilaterally AUSCULTATION: clear to auscultation bilaterally Cardio: COMMON NORMALS: regular rate, regular rhythm and No murmurs present (Cardio) RATE: regular rate RHYTHM: regular rhythm GI: COMMON NORMALS: Soft to palpation and No hepatosplenomegaly present AUSCULTATION: Yes normoactive bowel sounds PALPATION: Yes Soft to palpation, No Tenderness to palpation present (GI), No Guarding due to palpation present (GI) and Yes No hepatosplenomegaly present Extremity: COMMON NORMALS: normal to inspection, capillary refill normal, no clubbing, cyanosis or edema, no calf tenderness and no pedal edema Neuro: SENSORIUM/ORIENTATION: Yes oriented to person, Yes oriented to place and Yes oriented to time Skin: COMMON NORMALS: no rashes or lesions noted GENERAL SKIN EXAM: no rashes or lesions noted Course Vital Signs: Vital signs: Vital Signs Temperature 99 F 12/01/22 08:28 Pulse Rate 98 12/01/22 08:28 Respiratory Rate 16 12/01/22 07:24 Blood Pressure 156/63 12/01/22 09:28 Pulse Oximetry 95 12/01/22 09:28 Oxygen Delivery Me thod Room Air 12/01/22 09:28 MDM - General Adult Medical Decision Making Labs and imaging reviewed no acute findings. Influenza negative based on history he is given an exam I suspect he probably has COVID. We will discharge patient home he would not be a candidate for admission of his COVID does come back positive we can be called Sharad if he wishes. Reviewing his chart also noticed he has developed some chronic kidney disease that seems to correlate with an increase in his spironolactone we will have him stop the spironolactone and the losartan hydrochlorothiazide continue losartan 50 mg daily add amlodipine 5 mg daily follow-up with his primary care doctor. Medical Records I reviewed the patient's medical records. Lab Data I reviewed the patient's lab results. 12/01/22 07:40 12/01/22 07:40 Radiology Impressions Chest X-Ray 12/01/22 07:37 IMPRESSION: No acute findings. Laboratory Results WBC 9.11 10^3/uL (3.29-11.43) 12/01/22 07:40 RBC 4.25 10^6/uL (3.85-5.65) 12/01/22 07:40 Hgb 12.70 g/dL (11.27-16.99) 12/01/22 07:40 Hct 37.8 % (37-53) 12/01/22 07:40 MCV 88.9 fl (82-101) 12/01/22 07:40 MCH 29.9 pg (27-33) 12/01/22 07:40 MCHC 33.6 g/dL (30-55) 12/01/22 07:40 RDW 13.7 % (12.1-15.1) 12/01/22 07:40 Plt Count 116 10^3/cmm (157-399) L 12/01/22 07:40 MPV 10.2 fL (7.4-10.4) 12/01/22 07:40 Neut % (Auto) 87.7 % 12/01/22 07:40 Lymph % (Auto) 5.6 % 12/01/22 07:40 [place] % (Auto) 5.7 % 12/01/22 07:40 Eos % (Auto) 0.2 % 12/01/22 07:40 Baso % (Auto) 0.5 % 12/01/22 07:40 Neut # (Auto) 7.98 10^3/uL (1.8-7.7) H 12/01/22 07:40 Lymph # (Auto) 0.5 10^3/uL (0.8-4.8) L 12/01/22 07:40 [place] # (Auto) 0.5 10^3/uL (0.2-0.9) 12/01/22 07:40 Eos # (Auto) 0.0 10^3/uL (0.0-0.8) 12/01/22 07:40 Baso # (Auto) 0.1 10^3/uL (0.0-0.1) 12/01/22 07:40 Nucleated RBC % (auto) 0 % 12/01/22 07:40 Nucleated RBCs # 0.0 /100WBC 12/01/22 07:40 Sodium 136 mmol/L (136-145) 12/01/22 07:40 Potassium 4.7 mmol/L (3.5-5.1) 12/01/22 07:40 Chloride 101 mmol/L (98-107) 12/01/22 07:40 Carbon Dioxide 25 mmol/L (22-29) 12/01/22 07:40 Anion Gap 14.7 (5-19) 12/01/22 07:40 BUN 36 mg/dL (8-23) H 12/01/22 07:40 Creatinine 1.9 mg/dL (0.7-1.2) H 12/01/22 07:40 GFR Calculation Not Reportable 12/01/22 07:40 Glucose 160 mg/dL (65-115) H 12/01/22 07:40 Calculated Osmolality 294 mOsm/kg (285-295) 12/01/22 07:40 Calcium 8.5 mg/dL (8.5-10.5) 12/01/22 07:40 Total Bilirubin 1.6 mg/dL (0.15-1.2) H 12/01/22 07:40 AST 14 U/L (0-40) 12/01/22 07:40 ALT 15 U/L (0-41) 12/01/22 07:40 Alkaline Phosphatase 67 U/L (40-130) 12/01/22 07:40 Total Protein 6.2 g/dL (6.6-8.7) L 12/01/22 07:40 Albumin 3.8 g/dL (3.5-5.2) 12/01/22 07:40 Globulin 2.4 g/dL (1.3-4.6) 12/01/22 07:40 Influenza Type A Ag negative (Negative) 12/01/22 08:50 Influenza Type B Ag negative (Negative) 12/01/22 08:50 All radiology interpretation(s) finalized by discharge Discharge Plan Discharge Patient Disposition: Home Clinical Impression: Viral URI, Hypertension, CKD (chronic kidney disease), Suspected 2019-nCoV infection Condition: Stable Prescriptions: New amlodipine 5 mg tablet 5 mg PO DAILY Qty: 30 0RF losartan 50 mg tablet 50 mg PO DAILY Qty: 30 0RF Discontinued losartan-hydrochlorothiazide 100-25 mg tablet 1 tab PO QAM 90 Days Qty: 90 2RF Rx Instructions: 340B spironolactone 50 mg tablet 50 mg PO DAILY 90 Days Qty: 90 2RF No Action aspirin [Adult Aspirin Regimen] 81 mg tablet,delayed release (DR/EC) 81 mg PO DAILY clonidine HCl 0.1 mg tablet 0.1 mg PO BID 90 Days Qty: 180 2RF atorvastatin 40 mg tablet 40 mg PO DAILY 90 Days Qty: 90 1RF gabapentin 300 mg capsule 300 mg PO QID 90 Days Qty: 360 2RF (DME) Blood Glucose Test Strip See Rx Instructions .Route Qty: 50 2RF Rx Instructions: Test once daily cholecalciferol (vitamin D3) 1,250 mcg (50,000 unit) capsule 50,000 unit PO Q7D Rx Instructions: on Monday Discharge Orders: Discharge ED (Routine); Ordered 12/01/22 Ordered By: Dharmesh Richmond Referrals: Rylie Chun MD [Primary Care Provider] - Discharge Diet: Usual diet Discharge Activity: Increase activity as tolerated Patient Instructions: Opioid Safety, Pain Management Coding Level of Care Code ED Soldering Technician for Kranthi Maciel
[2022-12-01 07:52] LABS: Basophils # 0.1 10^3/uL (0.0-0.1); Basophils % 0.5 %; Eosinophils % 0.2 %; Hematocrit 37.8 % (37-53); Lymphocytes # 0.5 10^3/uL (0.8-4.8); Lymphocytes % 5.6 %; Mean Corpuscular HGB Conc 33.6 g/dL (30-55); Mean Corpuscular Hemoglobin 29.9 pg (27-33); Mean Corpuscular Volume 88.9 fl (82-101); Mean Platelet Volume 10.2 fL (7.4-10.4); Monocytes # 0.5 10^3/uL (0.2-0.9); Monocytes % 5.7 %; Neutrophils # 7.98 10^3/uL (1.8-7.7); Neutrophils % 87.7 %; Nucleated Red Blood Cells % 0 %; Platelet Count 116 10^3/cmm (157-399); Red Blood Count 4.25 10^6/uL (3.85-5.65); Red Cell Distribution Width 13.7 % (12.1-15.1); White Blood Count 9.11 10^3/uL (3.29-11.43)
[2022-12-01 08:03] LABS: Alanine Aminotransferase 15 U/L (0-41); Albumin Level 3.8 g/dL (3.5-5.2); Alkaline Phosphatase 67 U/L (40-130); Anion Gap 14.7 (5-19); Aspartate Amino Transferase 14 U/L (0-40); Blood Urea Nitrogen 36 mg/dL (8-23); Calcium 8.5 mg/dL (8.5-10.5); Carbon Dioxide 25 mmol/L (22-29); Chloride 101 mmol/L (98-107); Globulin 2.4 g/dL (1.3-4.6); Glucose 160 mg/dL (65-115); Osmolality Calculated 294 mOsm/kg (285-295); Potassium 4.7 mmol/L (3.5-5.1); Sodium 136 mmol/L (136-145); Total Bilirubin 1.6 mg/dL (0.15-1.2); Total Protein 6.2 g/dL (6.6-8.7)
[2022-12-01 08:05] LABS: Creatinine Clr Calc Pharmacy 40.4409
[2022-12-01 08:28] VITALS: PULSE 98; TEMP 37.2
[2022-12-01] MEDS: acetaminophen 500 mg Tablet 1000 MG PO (08:48)
[2022-12-01] MEDS: sodium chloride 0.9% 1,000 ML 999 ML IV (08:48)
[2022-12-01 09:14] LABS: Influenza A by IFA negative (Negative); Influenza B by IFA negative (Negative)
[2022-12-01 09:28] VITALS: BP 156/63; O2SAT 95
[2022-12-01 09:59] LABS: Adenovirus Not Detected (NOT DETECT); Chlamydia Pneumoniae Not Detected (NOT DETECT); Coronavirus 229E,HKU1,NL63,OC4 Not Detected (NOT DETECT); Human Metapneumovirus Not Detected (NOT DETECT); Human Rhinovirus/Enterovirus Not Detected (NOT DETECT); Influenza A Not Detected (NOT DETECT); Influenza A H1 Not Detected (NOT DETECT); Influenza A H1-2009 Not Detected (NOT DETECT); Influenza A H3 Not Detected (NOT DETECT); Influenza B Not Detected (NOT DETECT); Mycoplasma Pneumoniae Not Detected (NOT DETECT); Parainfluenza Virus Type 1 Not Detected (NOT DETECT); Parainfluenza Virus Type 2 Not Detected (NOT DETECT); Parainfluenza Virus Type 3 Not Detected (NOT DETECT); Parainfluenza Virus Type 4 Not Detected (NOT DETECT); Respiratory Syncytial Virus A Not Detected (NOT DETECT); Respiratory Syncytial Virus B Not Detected (NOT DETECT); SARS-COV-2 Not Detected (NOT DETECT)
[2022-12-01 10:39] VITALS: BP 109/67; PULSE 88; RESP 18; TEMP 37.1; O2SAT 95
[2022-12-01 11:31] LABS: Add Urine Microscopic? YES; Bilirubin Urine 1+ (Negative); Blood Urine Neg (Negative); Glucose Urine UA Norm (Normal); Ketones Urine Negative (Negative); Leukocyte Esterase Urine Trace (Negative); Nitrate Urine Negative (Negative); Protein Urine Neg (Negative); Urine Appearance Clear (CLEAR); Urine Color Yellow (Yellow); Urobilinogen Urine 1 mg/dL (Negative); pH Urine 5 (5-7)
[2022-12-01 11:36] LABS: Add Urine Culture? No; Bacteria Urine TRACE /hpf; Hyaline Casts Urine 0-4 /lpf; Mucus Urine 1+ /hpf; RBC Urine 0-4 /hpf (0-2); WBC Urine 0-4 /hpf (0-5)
== END 2022-12-01 10:40 | disposition home or self-care (01) ==
PROVIDERS: Emergency Provider Family Medicine; PCP Family Medicine
DX: J06.9 Acute upper respiratory infection, unspecified (principal); Z11.52 Encounter for screening for COVID-19; I12.9 Hypertensive chronic kidney disease with stage 1 through stage 4 chronic kidney disease, or unspecified chronic kidney disease; E11.22 Type 2 diabetes mellitus with diabetic chronic kidney disease; N18.9 Chronic kidney disease, unspecified; Z87.891 Personal history of nicotine dependence; Z79.82 Long term (current) use of aspirin
CPT/HCPCS: 36415; 71045; 80053; 81001; 85025; 87635; 87804; 96360; 99284; J7030

== ENCOUNTER → 2023-01-05 15:04 | Outpatient (BNVA) | payer MEDICARE, SELFPAY | PROVIDERS: PCP Family Medicine; Visit Provider Dermatology | DX: D48.5 Neoplasm of uncertain behavior of skin (principal); L57.0 Actinic keratosis; L82.0 Inflamed seborrheic keratosis; L57.8 Other skin changes due to chronic exposure to nonionizing radiation; D22.39 Melanocytic nevi of other parts of face; D22.0 Melanocytic nevi of lip; Z85.828 Personal history of other malignant neoplasm of skin | CPT/HCPCS: 11102; 17004; 17110; 99204 ==

== ENCOUNTER → 2023-01-31 08:53 | Outpatient (BNVA) | payer MEDICARE, SELFPAY | PROVIDERS: PCP Family Medicine; Visit Provider Family Medicine | DX: I10 Essential (primary) hypertension (principal); N18.9 Chronic kidney disease, unspecified; R44.9 Unspecified symptoms and signs involving general sensations and perceptions; E53.8 Deficiency of other specified B group vitamins | CPT/HCPCS: 80048; 82607 ==

== ENCOUNTER → 2023-02-03 09:14 | Outpatient (BNVA) | payer MEDICARE, SELFPAY | PROVIDERS: PCP Family Medicine; Visit Provider Dermatology | DX: C44.622 Squamous cell carcinoma of skin of right upper limb, including shoulder (principal); L57.0 Actinic keratosis; L91.8 Other hypertrophic disorders of the skin | CPT/HCPCS: 11200; 17000; 17272 ==

== ENCOUNTER 2023-05-05 16:01 | Emergency (ER) | payer MEDICARE, SELFPAY ==
[2023-05-05 16:05] VITALS: BP 175/70; PULSE 90; RESP 20; TEMP 36.7; O2SAT 97
--- NOTE | 2023-05-05 16:36 | CTR_ITS ---
PROCEDURE INFORMATION: Exam: CT Abdomen And Pelvis With Contrast Exam date and time: 05/05/2023 5:41 PM Age: 72 years old Clinical indication: Abdominal pain; Localized; Prior surgery; Surgery date: 6+ months; Surgery type: Appy; Patient HX: C/O left sided abd pain; Additional info: Right flank pain TECHNIQUE: Imaging protocol: Computed tomography of the abdomen and pelvis with contrast. Radiation optimization: All CT scans at this facility use at least one of these dose optimization techniques: automated exposure control; mA and/or kV adjustment per patient size (includes targeted exams where dose is matched to clinical indication); or iterative reconstruction. Contrast material: OMNI 350; Contrast volume: 100 ml; Contrast route: INTRAVENOUS (IV); COMPARISON: CT abdomen pelvis w con* [id number] 07/20/2017 7:10 AM RADIATION DOSE METRICS: Total DLP (mGy-cm): 846.94 FINDINGS: Lungs: Subsegmental bibasilar atelectasis. The visualized lung bases are otherwise grossly clear. Questionable right infrahilar adenopathy. Diaphragm: No evidence of diaphragmatic defect. Liver: Hepatic steatosis. No evidence of focal hepatic lesion. Gallbladder and bile ducts: There is cholelithiasis. No inflammatory changes to suggest acute cholecystitis. No intrahepatic or extrahepatic biliary dilatation. Pancreas: Unremarkable. Spleen: Enlarged measuring 18.5 cm in length. There are innumerable splenic lesions, similar to prior exam from June 2017. Adrenal glands: Right adrenal nodules measuring up to 15 mm, indeterminate. A similar nodule is visualized in June 2017. Kidneys and ureters: There is a simple appearing left-sided renal cyst for which dedicated imaging follow-up is not required. Otherwise no evidence of renal parenchymal abnormality. No hydronephrosis or ureteral stone. Stomach and bowel: No evidence of bowel obstruction or perienteric inflammatory changes. Appendix: Status post appendectomy. Intraperitoneal space: No evidence of free air or fluid collection. Vasculature: No aneurysmal dilatation or dissection of the abdominal aorta. The celiac trunk, SMA and SHAMA are grossly patent. No evidence of IVC thrombus. The portal vein, SMV and splenic veins are grossly patent. Lymph nodes: No adenopathy. Urinary bladder: Grossly unremarkable. Reproductive: There is nodularity and hypodensity within the prostate. Consider correlation with serum laboratory findings and outpatient urologic evaluation. Bones/joints: No evidence of acute fracture or aggressive osseous lesion. Soft tissues: No evidence of fluid collection or hematoma in the superficial soft tissues. CT/CT abdomen pelvis w con* [id number] IMPRESSION: 1. No evidence of acute abnormality in the abdomen or pelvis. 2. Splenomegaly with innumerable hypodensities, similar to prior exam from June 2017, raising the question of a lymphoproliferative or granulomatous process. 3. Nodular heterogeneous prostate. Consider correlation with serum laboratory findings and outpatient urologic evaluation. 4. Questionable right infrahilar adenopathy. Consider follow-up dedicated CT of the chest.
[2023-05-05] MEDS: sodium chloride 0.9% 1,000 ML 999 ML IV (16:55)
[2023-05-05 16:56] VITALS: RESP 22; O2SAT 97
[2023-05-05] MEDS: HYDROmorphone 1 mg/mL INJ 1 mL 0.5 MG IVP (16:56)
[2023-05-05] MEDS: ondansetron 2 mg/ML SDV 2 mL 4 MG IVP (16:56)
--- NOTE | 2023-05-05 17:06 | ED_ITS ---
HPI - Back Pain/Injury 2 General: Chief Complaint: Back Pain/Injury Stated Complaint: back pains Time Seen by Provider: 05/05/23 16:31 Source: patient Mode of arrival: ambulatory Limitations: no limitations History of Present Illness: 72-year-old male states he has been havi ng left flank pain along with some chills and nausea that started this morning. States the pain is sharp in nature rates it a 7 out of 10. He states he did hit that region fell off a horse earlier this week. He denies any dysuria denies any radiation of his pain denies any vomiting or diarrhea Associated symptoms: Deny abdominal pain, chills, dysuria, fever(s), nausea or vomiting Review of Systems 2 Const: Denies: fever(s), chills, body aches or change in appetite ENMT: Denies: throat pain or dental pain Card: Denies: chest pain Resp: Denies: dyspnea GI: Denies: abdominal pain, nausea or vomiting : Reports: flank pain; Denies: dysuria Musc: Denies: neck pain or back pain Skin/Breast: Denies: rash Neuro: Denies: headache(s) PFSH ED 2 PFSH: Medical History Chest pain Erectile dysfunction Diabetic neuropathy Diabetes Intolerance to glipizide, high-dose Metformin causes diarrhea Hypertension 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 Surgical History No pertinent past surgical history Family History Other CAD (coronary artery disease) Diabetes Denies family history of Stroke Social History Smoking and tobacco/nicotine status: former use of tobacco/nicotine Alcohol intake: never Substance/Drug Use: never Physical Exam 2 Const: COMMON NORMALS: no acute distress, patient oriented x3 and healthy appearing HENMT: COMMON NORMALS: normocephalic and atraumatic HEAD & SCALP: n ormocephalic and atraumatic Neck/C-Spine: COMMON NORMALS: full ROM and supple Chest: COMMONS NORMALS: normal inspection of the chest Resp: COMMON NORMALS: normal respiratory effort, No retractions, No use of accessory muscles and clear to auscultation bilaterally AUSCULTATION: clear to auscultation bilaterally Cardio: COMMON NORMALS: regular rate, regular rhythm and No murmurs present (Cardio) RATE: regular rate RHYTHM: regular rhythm GI: COMMON NORMALS: Normal to inspection, nondistended, normoactive bowel sounds present, Soft to palpation, non-tender and no masses PALPATION: Yes Soft to palpation Back/Pelvis: OTHER: Tenderness noted to left lower back and left flank Extremity: COMMON NORMALS: normal to inspection and full ROM Neuro: COMMON NORMALS: patient oriented x3, moves all extremities and no focal motor deficits Psych: COMMON NORMALS: mental status grossly normal, Normal thought process present and cooperative THOUGHT PROCESS: Normal thought process present Skin: COMMON NORMALS: no rashes or lesions noted and no wounds GENERAL SKIN EXAM: no rashes or lesions noted Course 2 Vital Signs: Vital signs: Vital Signs Temperature 98.1 F 05/05/23 16:05 Pulse Rate 72 05/05/23 19:01 Respiratory Rate 18 05/05/23 19:01 Blood Pressure 147/53 05/05/23 19:01 Pulse Oximetry 97 05/05/23 19:01 Oxygen Delivery Me thod Nasal Cannula 05/05/23 18:14 Oxygen Flow Rate 2 05/05/23 18:14 MDM - Back Pain/Injury Medical Decision Making Patient presents here with back pain likely muscle skeletal in nature CT showed no acute findings blood work urinalysis normal did inform you of the possible hilar lymphadenopathy in his chest and his enlarged prostate recommended follow- up with her prescribing pain meds he is return if worsening he understands agrees plan. Medical Records I reviewed the patient's medical records. Labs I reviewed the patient's lab results. 05/05/23 16:50 05/05/23 16:50 Radiology Impressions Abdomen/Pelvis CT 05/05/23 16:36 IMPRESSION: 1. No evidence of acute abnormality in the abdomen or pelvis. 2. Splenomegaly with innumerable hypodensities, similar to prior exam from June 2017, raising the question of a lymphoproliferative or granulomatous process. 3. Nodular heterogeneous prostate. Consider correlation with serum laboratory findings and outpatient urologic evaluation. 4. Questionable right infrahilar adenopathy. Consider follow-up dedicated CT of the chest. Laboratory Results WBC 6.91 10^3/uL (3.29-11.43) 05/05/23 16:50 RBC 5.39 10^6/uL (3.85-5.65) 05/05/23 16:50 Hgb 15.00 g/dL (11.27-16.99) 05/05/23 16:50 Hct 44.7 % (37-53) 05/05/23 16:50 MCV 82.9 fl (82-101) 05/05/23 16:50 MCH 27.8 pg (27-33) 05/05/23 16:50 MCHC 33.6 g/dL (30-55) 05/05/23 16:50 RDW 14.2 % (12.1-15.1) 05/05/23 16:50 Plt Count 135 10^3/cmm (157-399) L 05/05/23 16:50 MPV 10.2 fL (7.4-10.4) 05/05/23 16:50 Neut % (Auto) 81.0 % 05/05/23 16:50 Lymph % (Auto) 10.1 % 05/05/23 16:50 [place] % (Auto) 6.9 % 05/05/23 16:50 Eos % (Auto) 1.0 % 05/05/23 16:50 Baso % (Auto) 0.6 % 05/05/23 16:50 Neut # (Auto) 5.59 10^3/uL (1.8-7.7) 05/05/23 16:50 Lymph # (Auto) 0.7 10^3/uL (0.8-4.8) L 05/05/23 16:50 [place] # (Auto) 0.5 10^3/uL (0.2-0.9) 05/05/23 16:50 Eos # (Auto) 0.1 10^3/uL (0.0-0.8) 05/05/23 16:50 Baso # (Auto) 0.0 10^3/uL (0.0-0.1) 05/05/23 16:50 Nucleated RBC % (auto) 0 % 05/05/23 16:50 Nucleated RBCs # 0.0 /100WBC 05/05/23 16:50 Sodium 141 mmol/L (136-145) 05/05/23 16:50 Potassium 4.6 mmol/L (3.5-5.1) 05/05/23 16:50 Chloride 106 mmol/L (98-107) 05/05/23 16:50 Carbon Dioxide 22 mmol/L (22-29) 05/05/23 16:50 Anion Gap 17.6 (5-19) 05/05/23 16:50 BUN 19 mg/dL (8-23) 05/05/23 16:50 Creatinine 1.2 mg/dL (0.7-1.2) 05/05/23 16:50 GFR Calculation Not Reportable 05/05/23 16:50 Glucose 166 mg/dL (65-115) H 05/05/23 16:50 Calculated Osmolality 298 mOsm/kg (285-295) H 05/05/23 16:50 Calcium 8.9 mg/dL (8.5-10.5) 05/05/23 16:50 Total Bilirubin 1.4 mg/dL (0.15-1.2) H 05/05/23 16:50 AST 14 U/L (0-40) 05/05/23 16:50 ALT 14 U/L (0-41) 05/05/23 16:50 Alkaline Phosphatase 122 U/L (40-130) 05/05/23 16:50 Total Protein 6.3 g/dL (6.6-8.7) L 05/05/23 16:50 Albumin 4.2 g/dL (3.5-5.2) 05/05/23 16:50 Globulin 2.1 g/dL (1.3-4.6) 05/05/23 16:50 Lipase 22 U/L (13-60) 05/05/23 16:50 Urine Color Yellow (Yellow) 05/05/23 17:21 Urine Appearance Clear (CLEAR) 05/05/23 17:21 Urine pH 5 (5-7) 05/05/23 17:21 Ur Specific [place] 1.010 (1.005-1.030) 05/05/23 17:21 Urine Protein Neg (Negative) 05/05/23 17:21 Urine Glucose (UA) 4+ (Normal) H 05/05/23 17:21 Urine Ketones Negative (Negative) 05/05/23 17:21 Urine Blood Neg (Negative) 05/05/23 17:21 Urine Nitrate Negative (Negative) 05/05/23 17:21 Urine Bilirubin Neg (Negative) 05/05/23 17:21 Urine Urobilinogen Norm mg/dL (Negative) 05/05/23 17:21 Ur Leukocyte Esterase Trace (Negative) H 05/05/23 17:21 Urine RBC 0-4 /hpf (0-2) H 05/05/23 17:21 Urine WBC 5-10 /hpf (0-5) H 05/05/23 17:21 Ur Squamous Epith Cells 15-25 /hpf (0-5) H 05/05/23 17:21 Amorphous Sediment Not Reportable 05/05/23 17:21 Urine Bacteria Trace /hpf (NONE) 05/05/23 17:21 All radiology interpretation(s) finalized by discharge Discharge Plan Discharge Patient Disposition: Home Clinical Impression: Back pain Condition: Stable Prescriptions: New hydrocodone-acetaminophen 5-325 mg tablet 1 tab PO Q6H PRN (Reason: pain) Qty: 14 0RF methocarbamol 750 mg tablet 750 mg PO Q6H PRN (Reason: spasms) Qty: 20 0RF No Action aspirin [Adult Aspirin Regimen] 81 mg tablet,delayed release (DR/EC) 81 mg PO DAILY clonidine HCl 0.1 mg tablet 0.1 mg PO BID 90 Days Qty: 180 2RF Jardiance 25 mg tablet 25 mg PO QAM 90 Days Qty: 90 1RF losartan 50 mg tablet 50 mg PO DAILY 90 Days Qty: 90 1RF gabapentin 300 mg capsule 300 mg PO QID 90 Days Qty: 360 2RF amlodipine 10 mg tablet 10 mg PO DAILY 90 Days Qty: 90 1RF atorvastatin 40 mg tablet 40 mg PO DAILY 90 Days Qty: 90 1RF (DME) Blood Glucose Test Strip See Rx Instructions .ROUTE .MEDSUPPLY Qty: 50 11RF Rx Instructions: Brand/type to go with meter per insurance coverage, test 1x daily (DME) lancets [facility] [place] See Rx Instructions .ROUTE .MEDSUPPLY Qty: 100 11RF Rx Instructions: For use with glucose meter, brand/type per insurance alcohol swabs Pads, Medicated 1 pad topical TID PRN (Reason: as needed to check blood sugar) 30 Days Qty: 100 11RF (DME) Blood Glucose Test Strip See Rx Instructions .Route Qty: 50 2RF Rx Instructions: Test once daily cholecalciferol (vitamin D3) 1,250 mcg (50,000 unit) capsule 50,000 unit PO .weekly Qty: 12 5RF Rx Instructions: one weekly Discharge Orders: Discharge ED (Routine); Ordered 05/05/23 Ordered By: Cata Valle Referrals: Rylie Chun MD [Primary Care Provider] - 1-3 days Discharge Diet: Advance as tolerated Discharge Activity: Resume usual activity Patient Instructions: Back Pain (ED) Coding Level of Care Code ED Lead Housekeeper for Kranthi Maciel
[2023-05-05 17:08] VITALS: BP 152/64; PULSE 88; RESP 20; O2SAT 97
[2023-05-05 17:10] LABS: Basophils % 0.6 %; Eosinophils # 0.1 10^3/uL (0.0-0.8); Hematocrit 44.7 % (37-53); Lymphocytes # 0.7 10^3/uL (0.8-4.8); Lymphocytes % 10.1 %; Mean Corpuscular HGB Conc 33.6 g/dL (30-55); Mean Corpuscular Hemoglobin 27.8 pg (27-33); Mean Corpuscular Volume 82.9 fl (82-101); Mean Platelet Volume 10.2 fL (7.4-10.4); Monocytes # 0.5 10^3/uL (0.2-0.9); Monocytes % 6.9 %; Neutrophils # 5.59 10^3/uL (1.8-7.7); Nucleated Red Blood Cells % 0 %; Platelet Count 135 10^3/cmm (157-399); Red Blood Count 5.39 10^6/uL (3.85-5.65); Red Cell Distribution Width 14.2 % (12.1-15.1); White Blood Count 6.91 10^3/uL (3.29-11.43)
[2023-05-05 17:28] LABS: Alanine Aminotransferase 14 U/L (0-41); Albumin Level 4.2 g/dL (3.5-5.2); Alkaline Phosphatase 122 U/L (40-130); Anion Gap 17.6 (5-19); Aspartate Amino Transferase 14 U/L (0-40); Blood Urea Nitrogen 19 mg/dL (8-23); Calcium 8.9 mg/dL (8.5-10.5); Carbon Dioxide 22 mmol/L (22-29); Chloride 106 mmol/L (98-107); Creatinine Clr Calc Pharmacy 63.9338; Globulin 2.1 g/dL (1.3-4.6); Glucose 166 mg/dL (65-115); Lipase 22 U/L (13-60); Osmolality Calculated 298 mOsm/kg (285-295); Potassium 4.6 mmol/L (3.5-5.1); Sodium 141 mmol/L (136-145); Total Bilirubin 1.4 mg/dL (0.15-1.2); Total Protein 6.3 g/dL (6.6-8.7)
[2023-05-05 17:34] LABS: Add Urine Microscopic? YES; Bilirubin Urine Neg (Negative); Blood Urine Neg (Negative); Glucose Urine UA 4+ (Normal); Ketones Urine Negative (Negative); Leukocyte Esterase Urine Trace (Negative); Nitrate Urine Negative (Negative); Protein Urine Neg (Negative); RBC Urine 0-4 /hpf (0-2); Squamous Epithelial Cell Urine 15-25 /hpf (0-5); Urine Appearance Clear (CLEAR); Urine Color Yellow (Yellow); Urobilinogen Urine Norm (Negative); pH Urine 5 (5-7)
[2023-05-05 17:35] LABS: Add Urine Culture? No; Bacteria Urine TRACE /hpf
[2023-05-05] MEDS: iohexol 350 mg/mL 500 mL Btl (per mL) IV (17:44)
[2023-05-05 18:00] VITALS: BP 161/52; PULSE 93; O2SAT 91
[2023-05-05 18:14] VITALS: O2SAT 94
[2023-05-05 19:01] VITALS: BP 147/53; PULSE 72; RESP 18; O2SAT 97
== END 2023-05-05 19:03 | disposition home or self-care (01) ==
PROVIDERS: Emergency Provider Emergency Medicine; PCP Family Medicine
DX: M54.9 Dorsalgia, unspecified (principal); Z79.82 Long term (current) use of aspirin; E11.42 Type 2 diabetes mellitus with diabetic polyneuropathy; I10 Essential (primary) hypertension; Z87.891 Personal history of nicotine dependence
CPT/HCPCS: 74177; 80053; 81001; 83690; 85025; 96361; 96374; 96375; 99285; J1170; J2405; J7030; Q9967

== ENCOUNTER 2023-05-10 16:56 | Outpatient (CLI) | payer MEDICARE, SELFPAY ==
[2023-05-10] MEDS: iohexol 350 mg/mL 500 mL Btl (per mL) IV (17:13)
--- NOTE | 2023-05-10 17:30 | CT_ITS ---
WS: [id number] CT CHEST TECHNIQUE: Contrast enhanced CT of the chest with coronal and sagittal reformatted images. CLINICAL INFORMATION: R59.0 - Localized enlarged lymph nodes COMPARISON: CT abdomen pelvis 05/05/2023 DLP: 417.[address] scans at [facility] use at least one of these dose optimization techniques: automated e xposure control; mA and/or kV adjustment per patient size (includes targeted exams where dose is matc hed to clinical indication); or iterative reconstruction. FINDINGS: RIGHT infrahilar lymphadenopathy as seen on the CT abdomen pelvis measuring 2.4 x 1.5 cm. T his can be further evaluated with bronchoscopy or PET/CT. Prominent RIGHT paratracheal lymph node joce suring 10 mm. Enlarged LEFT hilar lymph node measuring 1.3 cm. Tiny 3 mm nodule RIGHT lower lobe. 3 m m nodule RIGHT lower lobe laterally. Tiny nodule in the RIGHT middle lobe.. A few shotty AP window lymph nodes. Calcified subcarinal lymph nodes. No axillary lymphadenopathy. No rmal caliber thoracic aorta. Aortic calcification. Proximal main pulmonary arteries appear normal. Mild chronic emphysematous changes. A few calcified granulomas. Mild thoracic kyphosis. Ankylosis thoracic spine. Partially visualized splenomegaly with innumerable low-attenuation lesions previously described on re cent CT abdomen pelvis. Mild diffuse fatty infiltration of the liver. Normal GE junction. Tiny RIGHT adrenal adenoma. IMPRESSION: 1. RIGHT infrahilar lymphadenopathy measuring 2.4 x 1.5 cm. Neoplasm is not excluded. This can be fu rther evaluated with bronchoscopy and/or PET/CT. 2. Enlarged LEFT hilar lymph node measuring 1.3 cm. Prominent RIGHT paratracheal lymph node measurin g 10 mm. 3. A few tiny subcentimeter nodules described above. 4. Partially visualized splenomegaly with innumerable low-attenuation lesions described on the recen t CT abdomen pelvis.
== END 2023-05-10 16:57 | disposition home or self-care (01) ==
LOC: RAD 16:56
PROVIDERS: PCP Family Medicine; Visit Provider Family Medicine
DX: R59.0 Localized enlarged lymph nodes (principal); R91.8 Other nonspecific abnormal finding of lung field; R16.1 Splenomegaly, not elsewhere classified
CPT/HCPCS: 71260; Q9967

== ENCOUNTER → 2023-05-11 09:05 | Outpatient (BNVA) | payer MEDICARE, SELFPAY | PROVIDERS: PCP Family Medicine; Referring Provider Family Medicine; Visit Provider Family Medicine | DX: E11.42 Type 2 diabetes mellitus with diabetic polyneuropathy (principal); E11.9 Type 2 diabetes mellitus without complications; N40.2 Nodular prostate without lower urinary tract symptoms; Z12.5 Encounter for screening for malignant neoplasm of prostate | CPT/HCPCS: 80061; 83036; 84153 ==

== ENCOUNTER → 2023-05-31 13:12 | Outpatient (BNVA) | payer MEDICARE, SELFPAY | PROVIDERS: PCP Family Medicine; Visit Provider Internal Medicine Pulmonary Disease | DX: R59.0 Localized enlarged lymph nodes (principal); Z87.891 Personal history of nicotine dependence | CPT/HCPCS: 99204 ==

== ENCOUNTER 2023-06-20 08:28 | Outpatient (CLI) | payer MEDICARE, SELFPAY ==
--- NOTE | 2023-06-20 09:00 | PETR_ITS ---
PROCEDURE INFORMATION: Exam: PET/CT Skull Base to Mid-thigh Exam date and time: 06/20/2023 9:27 AM Age: 72 years old Clinical indication: Abnormal findings; 1. Right infrahilar lymphadenopathy measuring 2.4 x 1.5 cm. Neoplasm is not excluded. This can be. Further evaluated with bronchoscopy and/or pet/ct. 2. Enlarged left hilar lymph node measuring 1.3 cm. Prominent right paratracheal lymph node. Measuring 10 mm. ; Additional info: Urgent LABS AND CLINICAL REPORTS: Glucose: 144 mg/dl Treatment strategy for malignancy (PET staging): Initial Staging (PI) TECHNIQUE: Imaging protocol: Following at least four-hour fasting and following the injection of radiopharmaceutical, low dose CT images were obtained. Then, PET images were obtained. Attenuation corrected images were constructed using the CT scan. Fused images of PET and CT were reviewed. The standardized uptake values (SUV) reported below are maximum values within a region of interest, expressed in gm/ml. Exam includes orbital meatal line to mid-thigh. Radiopharmaceutical: 13.06 mCi F-18 FDG (Fluorodeoxyglucose), IV. Time of imaging post radiopharmaceutical administration: 1 hour Injection site: Left antecubital COMPARISON: CT chest 05/10/2023 CT abdomen pelvis w con* [id number] 05/05/2023 5:41 PM FINDINGS: Brain: Visualized brain has normal physiologic uptake. Paranasal sinuses: Lobulated foci of non radiotracer avid soft tissue density in the bilateral maxillary sinuses and sphenoid sinus are consistent with benign mucous retention cysts or polyps. Pharynx: No abnormal uptake. Larynx: No abnormal uptake. Lungs, pleura and trachea: A similar in size right inferior perihilar nodule or lymph node measuring 2.1 x 1.6 cm in diameter on series 3, image 99 is noted, SUV max 2.5. There are bilateral pulmonary calcified granulomas. Heart: Normal physiologic uptake. Mediastinal space: No abnormal uptake. Liver: No abnormal uptake. Gallbladder and bile ducts: No abnormal uptake. A stone in the gallbladder is noted. Pancreas: No abnormal uptake. Spleen: [id number] splenomegaly. Mottled regions of hypodensity in the spleen appears similar to the prior CT examinations however these regions are not as well assessed without intravenous contrast. Splenic uptake: SUV max 3.0, SUV mean 2.2 Adrenal glands: An ovoid nodule in the right adrenal gland measures 1.4 x 0.9 cm on series 3, image 138 and is not radiotracer avid. A non radiotracer avid left adrenal nodule measures 7 mm on image 143. Kidneys and ureters: Normal physiologic uptake. A non radiotracer avid low-density structure in the lateral mid left kidney measuring 2.1 cm on series 3, image 158 is noted likely representing a benign cyst. Unremarkable right kidney. Stomach and bowel: No abnormal uptake. Vasculature: No abnormal uptake. Lymph nodes: Mildly prominent mediastinal lymph nodes are present without significant uptake. Examples: A right periaortic lymph node measures 1.8 x 0.9 cm on series 3, image 66 with an SUV max 1.9. A mildly prominent left lateral aortopulmonary window 1.2 cm lymph node on series 3, image 81 demonstrates an SUV max 1.5. Benign-appearing non radiotracer avid calcified small bilateral hilar and mediastinal lymph nodes are present. Mildly prominent upper abdominal lymph nodes are noted without elevated uptake. Examples: A lymph node between the duodenum and pancreatic head on series 3, image 151 measures 1.5 x 1.1 cm, SUV max 1.1. A lymph node superior to the pancreatic head on series 3, image 134 measures 1.1 x 0.8 cm, SUV max 1.4. Bones/joints: No abnormal uptake in the visualized axial and appendicular skeleton. A partially healed posteromedial left 10th rib fracture on series 3, image 118 is noted without elevated uptake. Degenerative changes in the spine are present. A suture anchor in the left humeral greater tuberosity is noted. Soft tissues: No abnormal uptake in the visualized head, neck, chest, abdomen, pelvis, and extremities. METRICS: Mediastinal blood pool: SUV max 2.4 Liver uptake: SUV max 3.2, SUV mean 2.5 [id number] IMPRESSION: 1. An inferior right perihilar nodule or lymph node is noted with low-level uptake (SUV max 2.5) which may be related to inflammatory or infectious involvement. A malignant etiology cannot be entirely excluded. 2. Mildly prominent mediastinal and upper abdominal lymph nodes are noted without significant uptake favoring a benign etiology. Non hypermetabolic malignancy cannot be excluded. 3. Splenomegaly without abnormal uptake. Heterogeneous areas of low density in the spleen persist. Uptake within the spleen is less than that of liver without evidence of hypermetabolic malignancy. Non hypermetabolic neoplastic involvement cannot be excluded from this examination. 4. Non radiotracer avid bilateral adrenal nodules favoring a benign etiology. 5. Cholelithiasis. 6. Additional nonurgent findings as detailed above.
== END 2023-06-20 08:29 | disposition home or self-care (01) ==
LOC: RAD 08:29
PROVIDERS: PCP Family Medicine; Visit Provider Internal Medicine Pulmonary Disease
DX: R93.89 Abnormal findings on diagnostic imaging of other specified body structures (principal); R59.1 Generalized enlarged lymph nodes; R91.1 Solitary pulmonary nodule; R16.1 Splenomegaly, not elsewhere classified; K80.20 Calculus of gallbladder without cholecystitis without obstruction
CPT/HCPCS: 78815; A9552

== ENCOUNTER 2023-07-11 07:54 | Day surgery (SDC) | payer MEDICARE, SELFPAY ==
[2023-07-11] VITALS (9 sets, daily range): BP systolic 152–173; BP diastolic 65–78; PULSE 71–84; RESP 7–18; TEMP 36.4–36.7; O2SAT 92–95; BMI 30.1
--- NOTE | 2023-07-11 08:24 | PM.OPSURHP ---
Providers/Chief Complaint Primary Care Provider: Rylie Chun MD Chief Complaint: R94.2 History of Present Illness Mr. Paresh Lynch is a 73 year old male with PMH of HTN, DM, Gout, referred by Adiel for Hilar Lymphadenopathy. Patient is a former smoker with hx of 1 ppd X 30 years, quit in 1998. pt had abdominal pain and had CT abd pelvis in ER which showed No evidence of acute abnormality in the abdomen or pelvis. Splenomegaly with innumerable hypodensities, similar to prior exam from June 2017, raising the question of a lymphoproliferative or granulomatous process. Questionable right infrahilar adenopathy. A dedicated CT of the chest 05/11/23: RIGHT infrahilar lymphadenopathy measuring 2.4 x 1.5 cm. Neoplasm is not excluded.Enlarged LEFT hilar lymph node measuring 1.3 cm. Prominent RIGHT paratracheal lymph node measuring 10 mm.. Denies any significant Cough, hemoptysis, SOB or wheezing. Reports pain in SNEHAL on deep inspiration. He does not us any inhalers. 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 He denied wt loss recently; Admits he is tired. A subsequent PET CT 06/20/23: An inferior right perihilar nodule or lymph node is noted with low-level uptake (SUV max 2.5) which may be related to inflammatory or infectious involvement. A malignant etiology cannot be entirely excluded. Today he is scheduled for Endobronchial ultrasound guided biopsies of Hilar/mediastinal biopsies. Medications/Allergies Home Medications Medication Instructions Recorded Confirmed Last Taken Type blood sugar diagnostic (Blood #50 ea 12/19/20 05/31/23 Unknown Rx Glucose Test strips) aspirin 81 mg tablet,delayed 81 mg PO DAILY 04/12/22 07/07/23 07/09/23 History release (Adult Aspirin Regimen) clonidine HCl 0.1 mg tablet 0.1 mg PO BID 90 days #180 tabs 02/01/23 07/07/23 07/11/23 05:00 Rx alcohol swabs 1 pad topical TID PRN as needed to 02/28/23 07/07/23 Unknown Rx check blood sugar 30 days #100 ea amlodipine 10 mg tablet 10 mg PO DAILY 90 days #90 tabs 02/28/23 07/07/23 07/11/23 05:00 Rx atorvastatin 40 mg tablet 40 mg PO DAILY 90 days #90 tabs 02/28/23 07/07/23 07/11/23 05:00 Rx blood sugar diagnostic (Blood #50 ea 02/28/23 05/31/23 Unknown Rx Glucose Test strips) empagliflozin 25 mg tablet 25 mg PO QAM 90 days #90 tabs 02/28/23 07/07/23 07/10/23 Rx (Jardiance) lancets #100 ea 02/28/23 05/31/23 Unknown Rx losartan 50 mg tablet 50 mg PO DAILY 90 days #90 tabs 02/28/23 07/07/23 07/10/23 Rx clindamycin HCl 150 mg capsule 300 mg PO TID 07/07/23 07/07/23 07/11/23 05:00 History gabapentin 300 mg capsule 300 mg PO TID 07/07/23 07/07/23 07/11/23 05:00 History Allergies Allergy/AdvReac Type Severity Reaction Status Date / Time Penicillins Allergy rash Verified 07/07/23 08:35 glipizide AdvReac Intermediate itching Verified 07/07/23 08:35 PFSH PFSH: Medical History Chest pain Erectile dysfunction Diabetic neuropathy Diabetes Intolerance to glipizide, high-dose Metformin causes diarrhea Hypertension 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 Surgical History No pertinent past surgical history Family History Other CAD (coronary artery disease) Diabetes Denies family history of Stroke Social History Smoking and tobacco/nicotine status: former use of tobacco/nicotine Quit status (tobacco/nicotine): has quit using Year quit tobacco: 1998 Former quit date comment: 1ppd X 30 years Alcohol intake: never Substance/Drug Use: never Dietary Habits: Caffeine: Yes Caffeine intake frequency: carbonated beverages Vital Signs Vitals Signs: Last Vital Signs Temp 97.6 F 07/11/23 08:17 Pulse 71 07/11/23 08:17 Resp 18 07/11/23 08:17 BP 173/78 07/11/23 08:17 Pulse Ox 93 07/11/23 08:17 O2 Del Method Room Air 07/11/23 08:17 Weight: Weight last 48 hrs Weight 210 lb Physical Exam Narrative: EXAM NARRATIVE: General: alert, NAD HEENT: conj clear, EOMI, PERRL, mmm, Neck: supple, no meningismus Heme: no cervical LAP Respiratory: Inspection: No visible deformity of the chest wall Palpation: Trachea is mildly deviated to the right, bilateral symmetric expansion Percussion: Bilateral tympanic percussion note both anterior and posteriorly Auscultation: Bilateral clear to auscultation both anterior and posteriorly, no crackles wheezing or rhonchi Cardiovascular: rrr, nl s1s2, no mrg Abdomen: soft, nt, nd, no r/g, bs+ Extremities: pulses +, no edema, no c/c : no CVA tenderness Skin: intact, no rash MSK: no back or neck pain Neurologic: grossly intact A&P Assessment and plan (1) Hilar lymphadenopathy: CT of the chest 05/11/23: RIGHT infrahilar lymphadenopathy measuring 2.4 x 1.5 cm. Neoplasm is not excluded.Enlarged LEFT hilar lymph node measuring 1.3 cm. Prominent RIGHT paratracheal lymph node measuring 10 mm.. Denies any significant Cough, hemoptysis, SOB or wheezing. Reports pain in SNEHAL on deep inspiration. He does not us any inhalers. 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 A subsequent PET CT 06/20/23: An inferior right perihilar nodule or lymph node is noted with low-level uptake (SUV max 2.5) which may be related to inflammatory or infectious involvement. A malignant etiology cannot be entirely excluded. Today he is scheduled for Endobronchial ultrasound guided biopsies of Hilar/mediastinal biopsies to rule out malignancy Coding Level of Care Code Acute Code for Chg Fwd Diagnoses Hilar lymphadenopathy R59.0 Time Spent (min) 19
[2023-07-11] MEDS: sodium chloride 0.9% 1,000 ML 30 ML IV (08:30)
--- NOTE | 2023-07-11 08:31 | ANES.PREANE2 ---
Pre-Anesthetic Assessment Height/Weight: Height 1.78 m Weight 95.254 kg Temp Pulse Resp BP Pulse Ox O2 Del Method 97.6 F 71 18 173/78 93 Room Air 07/11/23 08:07/11/23 08:17 07/11/23 08:17 07/11/23 08:17 07/11/23 08:07/11/23 08:17 Operation Date: 07/11/23 09:00 Proposed Procedures p Ebus 57791, 69914, 86622, 18961, 56557, 69880, 35871, 10968, 30874, 88510, 45265, 81812, R94.2(Not Applicable) - Mejia Leslie DatarMD Familial anesthetic complications: Slow to wake Was Beta Yunior taken within 24 hours: N/A Was Clonidine taken within 24 hours: N/A Last intake: Intake Last Liquid Date 07/10/23 Last Liquid Time 23:30 Last Solid Date 07/10/23 Last Solid Time 20:00 Social No alcohol and No tobacco Exam alert, oriented x 3, clear to auscultation bilaterally and regular rate & rhythm Airway Mallampati: Class I Dentition: false Pulmonary nodules CV/HEM Atrial Fibrillation (intermittent), Congestive Heart Failure (grade II diastolic) and Hypertension Chronic Renal Insufficiency Metabolic Diabetes Mellitus and Hyperlipidemia Anesthetic Plan ASA status: 3 Anesthesia: General Risk of > 500 ml blood loss (7ml/kg in children): No Medications/Allergies Home Medications Medication Instructions Recorded Confirmed Last Taken Type blood sugar diagnostic (Blood #50 ea 12/19/20 05/31/23 Unknown Rx Glucose Test strips) aspirin 81 mg tablet,delayed 81 mg PO DAILY 04/12/22 07/07/23 07/09/23 History release (Adult Aspirin Regimen) clonidine HCl 0.1 mg tablet 0.1 mg PO BID 90 days #180 tabs 02/01/23 07/07/23 07/11/23 05:00 Rx alcohol swabs 1 pad topical TID PRN as needed to 02/28/23 07/07/23 Unknown Rx check blood sugar 30 days #100 ea amlodipine 10 mg tablet 10 mg PO DAILY 90 days #90 tabs 02/28/23 07/07/23 07/11/23 05:00 Rx atorvastatin 40 mg tablet 40 mg PO DAILY 90 days #90 tabs 02/28/23 07/07/23 07/11/23 05:00 Rx blood sugar diagnostic (Blood #50 ea 02/28/23 05/31/23 Unknown Rx Glucose Test strips) empagliflozin 25 mg tablet 25 mg PO QAM 90 days #90 tabs 02/28/23 07/07/23 07/10/23 Rx (Jardiance) lancets #100 ea 02/28/23 05/31/23 Unknown Rx losartan 50 mg tablet 50 mg PO DAILY 90 days #90 tabs 02/28/23 07/07/23 07/10/23 Rx clindamycin HCl 150 mg capsule 300 mg PO TID 07/07/23 07/07/23 07/11/23 05:00 History gabapentin 300 mg capsule 300 mg PO TID 07/07/23 07/07/23 07/11/23 05:00 History Allergies Allergy/AdvReac Type Severity Reaction Status Date / Time Penicillins Allergy rash Verified 07/07/23 08:35 glipizide AdvReac Intermediate itching Verified 07/07/23 08:35 Current Medications Generic Name Dose Route Start Last Admin Trade Name Freq PRN Reason Stop Dose Admin Sodium Chloride 1,000 mls @ 30 mls/hr 07/11/23 08:00 07/11/23 08:30 Sodium Chloride 0.9% IV 07/12/23 07:59 30 mls/hr .Q24H TALON Administration PFSH Anesthesia Medical History Chest pain Erectile dysfunction Diabetic neuropathy Diabetes Intolerance to glipizide, high-dose Metformin causes diarrhea Hypertension 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 Surgical History No pertinent past surgical history Family History Other CAD (coronary artery disease) Diabetes Denies family history of Stroke Social History Smoking and tobacco/nicotine status: former use of tobacco/nicotine Quit status (tobacco/nicotine): has quit using Year quit tobacco: 1998 Former quit date comment: 1ppd X 30 years Alcohol intake: never Substance/Drug Use: never Data Anesthesia Cardiac Studies: Echocardiogram 06/07/22 Echocardiogram Ultrasound 11/15/19 Cardiac Event Monitor 06/21/22
[2023-07-11 08:33] LABS: Glucose Point of Care 140 mg/dL (70-110)
[2023-07-11] MEDS: lidocaine 1% INJ 10 mL (per mL) XX (09:12)
[2023-07-11 10:04] LABS: Cyto Order Verification Order Verified
--- NOTE | 2023-07-11 10:18 | PM.OP ---
Operative Report Date of procedure: July 11, 2023 Pre-op diagnosis: hilar adenopathy - rule out malignancy Post-op diagnosis: same Procedure done: -Dx Bronchoscope w/BAL -Bronchoscopy w/ therapeutic aspiration of the tracheobronchial tree (clearance of airway secretions, removal of mucus plugs) -EBUS Sampling 2 nodes Surgeon: Mejia Solorio MD Brief History: Mr. Paresh Lynch is a 73 year old male with PMH of HTN, DM, Gout, referred by Adiel for Hilar Lymphadenopathy. Patient is a former smoker with hx of 1 ppd X 30 years, quit in 1998. pt had abdominal pain and had CT abd pelvis in ER which showed No evidence of acute abnormality in the abdomen or pelvis. Splenomegaly with innumerable hypodensities, similar to prior exam from June 2017, raising the question of a lymphoproliferative or granulomatous process. Questionable right infrahilar adenopathy. A dedicated CT of the chest 05/11/23: RIGHT infrahilar lymphadenopathy measuring 2.4 x 1.5 cm. Neoplasm is not excluded.Enlarged LEFT hilar lymph node measuring 1.3 cm. Prominent RIGHT paratracheal lymph node measuring 10 mm.. Denies any significant Cough, hemoptysis, SOB or wheezing. Reports pain in SNEHAL on deep inspiration. He does not us any inhalers. 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 He denied wt loss recently; Admits he is tired. A subsequent PET CT 06/20/23: An inferior right perihilar nodule or lymph node is noted with low-level uptake (SUV max 2.5) which may be related to inflammatory or infectious involvement. A malignant etiology cannot be entirely excluded. Today he is scheduled for Endobronchial ultrasound guided biopsies of Hilar/mediastinal biopsies. Procedure: Dx Bronchoscope w/BAL Bronchoscopy w/ therapeutic aspiration of the tracheobronchial tree (clearance of airway secretions, removal of mucus plugs) EBUS Sampling 2 nodes Indication: PET CT 06/20/23: An inferior right perihilar nodule or lymph node is noted with low-level uptake (SUV max 2.5) which may be related to inflammatory or infectious involvement. A malignant etiology cannot be entirely excluded. Anesthesia: General anesthesia. Local anesthesia: The juan in the right and left mainstem bronchi were anesthetized with 1% lidocaine, 3 mL. Description of the procedure: The procedure was explained to the patient and the consent was obtained. The patient was brought to the OR. The patient underwent induction for general anesthesia and endotracheal tube was placed. The bronchoscope was advanced through the Larygeal Mask Airway (LMA). The vocal cords visualized which were mobile and appeared normal. 1 mL of 1% topical lidocaine instilled on the vocal cords. The bronchoscope was advanced through the glottis into the trachea. There were copious amount of thick mucoid secretions which were suctioned right away. Tracheal mucosa appeared normal, no endotracheal lesion was seen. There were thick mucus secretions which were suctioned. The juan was sharp. 1 mL each of 1% lidocaine was instilled in the trachea the right and left mainstem bronchi for local anesthesia. In a systematic manner bilateral bronchial tree was then examined. The bronchoscope was then introduced into the right mainstem bronchus. The right upper lobe, right middle lobe and right lower lobe are examined up to the third subsegmental level and no abnormalities were identified. There were mucoid secretions which were suctioned right away. The bronchoscope was advanced into the left mainstem bronchus. The left upper lobe, and lingula were examined up to the third subsegmental level and no abnormalities were identified. Mucosa of left upper lobe and lingula appeared normal with no endobronchial lesion. There were thick mucus secretions which were suctioned right away. BAL was taken from medial basal segment of left lower lobe. Bronchoscope was retracted and Endobronchial Ultrasound (EBUS) was introduced. Identified a large hypoechoic mass in station 7, station 12 R. Using 19-gauge [id number]-abetrdzy were taken from these 2 stations; there was some evidence of bleeding which is controlled with instillation of cold saline. After making sure there is no active bleeding, bronchoscope retracted and procedure terminated. Samples: 1. Bronchoalveolar lavage was performed after wedging the bronchoscope at the entrance of medial basal segment of left lower lobe. 60 mL of saline was instilled, fluid return was 25 mL. Bronchoalveolar lavage specimen was sent for cell count and differential, gram stain and culture, cytology, mycobacterial cultures, fungal cultures B. EBUS guided Fine-needle aspiration biopsies were taken from station 7, station 12 R. 1. Total of 6 passes were made using needle aspiration from station 7; all the material was placed in formalin and sent for histopathology 2. Total of 4 passes were made using needle aspiration from station 12 R; all the material was placed in formalin and sent for histopathology Some of the material from station 7 was placed in RPMI to rule out lymphoma Complications: None.The patient was extubated and brought to the PACU in stable condition. Disposition: Patient can be discharged home in stable condition. Pt and his are aware that I am going to call them to update final biopsy results once available. Related Problem List Diagnoses (1) Abnormal PET scan, lung: (2) Hilar lymphadenopathy:
--- NOTE | 2023-07-11 11:20 | ANE.PACU2 ---
Inpatient post-anesthesia follow up: Airway intact: Yes Vital signs: Temperature 98.1 F Pulse Rate 75 Respiratory Rate 13 Blood Pressure 152/71 Pulse Oximetry 92 Oxygen Delivery Me thod Room Air Oxygen Flow Rate 2 Fraction of Inspir ed Oxygen Hydration adequate: Yes Nausea and vomiting: No Pain level: 1 Mental status: Baseline
[2023-07-11 18:09] LABS: Apprearance, Bronch Wash Cloudy (CLEAR); PATH Referral Yes; Total Cells Counted Bronch 200
[2023-07-11 18:10] LABS: Bronch Source LEFT LOWER LOBE BAL; Color, Bronc Wash Red
[2023-07-12 12:43] LABS: Lymphoma Profile (BBPL) See Report
== END 2023-07-11 11:20 | disposition home or self-care (01) ==
PROVIDERS: PCP Family Medicine; Visit Provider Internal Medicine Pulmonary Disease
PROC: BB4BZZZ Ultrasonography of Pleura (ICD-10-PCS; principal; 2023-07-11 09:00)
PROC: 0BJ08ZZ Inspection of Tracheobronchial Tree, Via Natural or Artificial Opening Endoscopic (ICD-10-PCS; CPT 31622; 2023-07-11 09:00)
DX: R59.0 Localized enlarged lymph nodes (principal); Z87.891 Personal history of nicotine dependence; E11.40 Type 2 diabetes mellitus with diabetic neuropathy, unspecified; I48.91 Unspecified atrial fibrillation; I11.0 Hypertensive heart disease with heart failure; I50.9 Heart failure, unspecified; E78.5 Hyperlipidemia, unspecified; Z79.82 Long term (current) use of aspirin
CPT/HCPCS: 31624; 31645; 31652; 36416; 80503; 82962; 87015; 87070; 87102; 87116; 87205; 87206; 87801; 88112; 88184; 88185; 88305; 89050; J2704; J3010; J3490; J7030

== ENCOUNTER 2023-07-12 16:28 | Observation (INO) | payer MEDICARE, SELFPAY ==
[2023-07-12] VITALS (15 sets, daily range): BP systolic 155–182; BP diastolic 61–75; PULSE 78–90; RESP 18–21; TEMP 37.7; O2SAT 89–95; BMI 30.1; BMI 31.6
--- NOTE | 2023-07-12 17:00 | XRR_ITS ---
PROCEDURE INFORMATION: Exam: XR Chest Exam date and time: 07/12/2023 5:29 PM Age: 72 years old Clinical indication: Shortness of breath; Additional info: SOB TECHNIQUE: Imaging protocol: Radiologic exam of the chest. Views: 1 view. COMPARISON: CT chest w con* [id number] 05/10/2023 5:06 PM FINDINGS: Limitations: Patient is rotated towards the left. Lungs: There are calcified granulomas in both lungs. There is some minimal infiltrate seen at the right lung base. This is better identified on the subsequent CT scan of the chest which has been already reported. There is no pulmonary vascular congestion. Pleural spaces: Unremarkable. No pleural effusion. No pneumothorax. Heart/Mediastinum: Heart is within normal limits of size. Bones/joints: There are degenerative changes in the thoracic spine. XR/XR chest 1V portable [id number] IMPRESSION: Mild right basilar infiltrate.
[2023-07-12 17:36] LABS: Basophils % 0.4 %; Eosinophils # 0.1 10^3/uL (0.0-0.8); Eosinophils % 0.9 %; Hematocrit 43.8 % (37-53); Lymphocytes # 0.8 10^3/uL (0.8-4.8); Lymphocytes % 14.3 %; Mean Corpuscular HGB Conc 32.6 g/dL (30-55); Mean Corpuscular Hemoglobin 27.9 pg (27-33); Mean Corpuscular Volume 85.4 fl (82-101); Mean Platelet Volume 10.7 fL (7.4-10.4); Monocytes # 0.3 10^3/uL (0.2-0.9); Monocytes % 5.7 %; Neutrophils # 4.38 10^3/uL (1.8-7.7); Neutrophils % 78.2 %; Nucleated Red Blood Cells % 0 %; Platelet Count 116 10^3/cmm (157-399); Red Blood Count 5.13 10^6/uL (3.85-5.65); Red Cell Distribution Width 14.6 % (12.1-15.1)
[2023-07-12 17:52] LABS: Alanine Aminotransferase 15 U/L (0-41); Alkaline Phosphatase 102 U/L (40-130); Anion Gap 14.4 (5-19); Aspartate Amino Transferase 16 U/L (0-40); Blood Urea Nitrogen 25 mg/dL (8-23); Carbon Dioxide 26 mmol/L (22-29); Chloride 106 mmol/L (98-107); Creatinine Clr Calc Pharmacy 63.5117; Globulin 3.2 g/dL (1.3-4.6); Glucose 173 mg/dL (65-115); Osmolality Calculated 303 mOsm/kg (285-295); Potassium 4.4 mmol/L (3.5-5.1); Sodium 142 mmol/L (136-145); Total Bilirubin 0.7 mg/dL (0.15-1.2); Total Protein 7.2 g/dL (6.6-8.7)
--- NOTE | 2023-07-12 17:52 | CTR_ITS ---
PROCEDURE INFORMATION: Exam: CTA Chest With Contrast Exam date and time: 07/12/2023 7:24 PM Age: 72 years old Clinical indication: Dyspnea; Patient HX: Patient has a bronchoscope done yesterday and now has fever and chills. ; Additional info: SOB TECHNIQUE: Imaging protocol: Computed tomographic angiography of the chest with contrast. Exam focused on the arteries. 3D rendering (Not supervised by radiologist): MIP and/or 3D reconstructed images were created by the technologist. Radiation optimization: All CT scans at this facility use at least one of these dose optimization techniques: automated exposure control; mA and/or kV adjustment per patient size (includes targeted exams where dose is matched to clinical indication); or iterative reconstruction. Contrast material: OMNI 350; Contrast volume: 100 ml; Contrast route: INTRAVENOUS (IV); COMPARISON: 1. PT PET skulltothigh INITIAL [id number] 06/20/2023 9:[address] abdomen pelvis w con* [id number] 05/05/2023 5:[address] chest w con* [id number] 05/10/2023 5:06 PM RADIATION DOSE METRICS: Total DLP (mGy-cm): 523 FINDINGS: Pulmonary arteries: There is questionably a small filling defect in a peripheral pulmonary artery branch in the posterior right lower lobe in the area of the pneumonic consolidation, possibly a small pulmonary embolus but this is not a definite finding due to some mild motion artifact in the region. There are no other suspected pulmonary emboli, and no evidence of large or central pulmonary emboli. Aorta: There is no thoracic aortic aneurysm or dissection. Lungs: There are calcified granulomas in the right lower lobe. There are some patchy nodular ground-glass opacities in the right lower lobe as well as some peripheral consolidation worrisome for pneumonia. Aspiration pneumonia not excluded. There are also some milder nodular centrilobular ground-glass opacities in the left lung base new from the previous examination which could also represent some pneumonitis or aspiration. There is also some mild patchy ground-glass opacity posterior left upper lobe near the fissure in some mild centrilobular nodular tree-in-bud type opacities mid right upper lobe which are nonspecific but could represent some infectious or inflammatory condition. Clinical correlation and follow-up suggested. Pleural spaces: Unremarkable. No pneumothorax. No pleural effusion. Heart: There is a small amount of fluid in the superior pericardial recess and trace pericardial effusion. Lymph nodes: There is a enlarged infrahilar lymph node on the right measuring 22 x 30 mm larger than on 06/20/2023 or 05/10/2023 there is also mild left hilar adenopathy measuring 16 x 22 mm, larger than on the previous examination. There is also mild subcarinal adenopathy increased in prominence. There are calcifications within some of the hilar and mediastinal lymph nodes in keeping with old granulomatous disease. There is mild right paratracheal adenopathy with lymph node measuring 10 x 23 mm and small prevascular lymph nodes slightly more prominent than on the previous exam. Spleen: Splenomegaly and numerous splenic hypodensities are again identified not changed compared with the previous Bones/joints: The thoracic spine demonstrates moderate degenerative changes at multiple levels. There is no evidence of acute fracture. Soft tissues: Unremarkable. CT/CT angio chest PE protcl [id number] IMPRESSION: 1. Multifocal pneumonia. 2. Increasing hilar and mediastinal adenopathy. 3. Question of possible tiny embolus in right lower lobe branch no large or central pulmonary emboli are demonstrated.
[2023-07-12] MEDS: acetaminophen 325 mg Tablet 650 MG PO (18:26)
--- NOTE | 2023-07-12 18:35 | ED_ITS ---
HPI - SOB/Dyspnea 2 General: Chief Complaint: Shortness of Breath/Dyspnea Stated Complaint: fever, headache, 1 day post scope Time Seen by Provider: 07/12/23 17:45 Source: patient Mode of arrival: ambulatory Limitations: no limitations History of Present Illness: HPI Narrative: 72-year-old male states that over the st week he has been having cough congestion increasing shortness of breath he had a bronchoscopy done yesterday states that dyspnea is worsened and he is became febrile states he had a temperature up to 101 he is 99.9 here. He denies any pain denies any vomiting diarrhea Associated symptoms: Reports fever(s); Deny abdominal pain, chest pain, nausea or vomiting Review of Systems 2 Const: Reports: fever(s); Denies: chills, body aches or change in appetite ENMT: Denies: throat pain or dental pain Card: Denies: chest pain Resp: Reports: dyspnea and non-productive cough GI: Denies: abdominal pain, nausea, vomiting or diarrhea Musc: Denies: neck pain or back pain Skin/Breast: Denies: rash Neuro: Denies: headache(s) PFSH ED 2 PFSH: Medical History Abnormal PET scan, lung Chest pain Erectile dysfunction Diabetic neuropathy Diabetes Intolerance to glipizide, high-dose Metformin causes diarrhea Hypertension 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 Surgical History No pertinent past surgical history Family History Other CAD (coronary artery disease) Diabetes Denies family history of Stroke Social History Smoking and tobacco/nicotine status: former use of tobacco/nicotine Quit status (tobacco/nicotine): has quit using Year quit tobacco: 1998 Former quit date comment: 1ppd X 30 years Alcohol intake: never Substance/Drug Use: never Physical Exam 2 Const: COMMON NORMALS: no acute distress, patient oriented x3 and healthy appearing HENMT: COMMON NORMALS: normocephalic and atraumatic HEAD & SCALP: n ormocephalic and atraumatic Eye: COMMON NORMALS: Equal, round and reactive pupils present and EOMs intact bilaterally PUPIL: Yes Equal, round and reactive pupils present Neck/C-Spine: COMMON NORMALS: full ROM and supple Chest: COMMONS NORMALS: normal inspection of the chest and normal palpation of entire chest wall Resp: COMMON NORMALS: normal respiratory effort, No retractions, No use of accessory muscles and clear to auscultation bilaterally AUSCULTATION: clear to auscultation bilaterally Cardio: COMMON NORMALS: regular rate, regular rhythm and No murmurs present (Cardio) RATE: regular rate RHYTHM: regular rhythm GI: COMMON NORMALS: Normal to inspection, nondistended, normoactive bowel sounds present, Soft to palpation, non-tender and no masses PALPATION: Yes Soft to palpation Extremity: COMMON NORMALS: normal to inspection and full ROM Neuro: COMMON NORMALS: patient oriented x3, moves all extremities and no focal motor deficits Psych: COMMON NORMALS: mental status grossly normal, Normal thought process present and cooperative THOUGHT PROCESS: Normal thought process present Skin: COMMON NORMALS: no rashes or lesions noted and no wounds GENERAL SKIN EXAM: no rashes or lesions noted Course 2 Vital Signs: Vital signs: Vital Signs Temperature 99.9 F H 07/12/23 16:42 Pulse Rate 82 07/12/23 20:15 Respiratory Rate 19 H 07/12/23 19:15 Blood Pressure 171/61 07/12/23 20:00 Pulse Oximetry 93 07/12/23 20:15 Oxygen Delivery Me thod Nasal Cannula 07/12/23 20:15 Oxygen Flow Rate 2 07/12/23 20:15 MDM - SOB/Dyspnea Medical Decision Making Patient presents here with cough he is also had a fever he is hypoxic requiring 2 L of fluids he is CT does show multifocal pneumonia did start him on IV antibiotics spoke to the hospitalist will admit at this time Medical Records I reviewed the patient's medical records. Lab Data I reviewed the patient's lab results. 07/12/23 17:22 07/12/23 17:22 Labs/Radiology: Radiology Impressions Chest CTA 07/12/23 17:52 IMPRESSION: 1. Multifocal pneumonia. 2. Increasing hilar and mediastinal adenopathy. 3. Question of possible tiny embolus in right lower lobe branch no large or central pulmonary emboli are demonstrated. Laboratory Results WBC 5.60 10^3/uL (3.29-11.43) 07/12/23 17: RBC 5.13 10^6/uL (3.85-5.65) 07/12/23 17:22 Hgb 14.30 g/dL (11.27-16.99) 07/12/23 17:22 Hct 43.8 % (37-53) 07/12/23 17:22 MCV 85.4 fl (82-101) 07/12/23 17:22 MCH 27.9 pg (27-33) 07/12/23 17:22 MCHC 32.6 g/dL (30-55) 07/12/23 17:22 RDW 14.6 % (12.1-15.1) 07/12/23 17:22 Plt Count 116 10^3/cmm (157-399) L 07/12/23 17:22 MPV 10.7 fL (7.4-10.4) H 07/12/23 17: Neut % (Auto) 78.2 % 07/12/23 17: Lymph % (Auto) 14.3 % 07/12/23 17:22 [place] % (Auto) 5.7 % 07/12/23 17:22 Eos % (Auto) 0.9 % 07/12/23 17: Baso % (Auto) 0.4 % 07/12/23 17: Neut # (Auto) 4.38 10^3/uL (1.8-7.7) 07/12/23 17:22 Lymph # (Auto) 0.8 10^3/uL (0.8-4.8) 07/12/23 17:22 [place] # (Auto) 0.3 10^3/uL (0.2-0.9) 07/12/23 17:22 Eos # (Auto) 0.1 10^3/uL (0.0-0.8) 07/12/23 17:22 Baso # (Auto) 0.0 10^3/uL (0.0-0.1) 07/12/23 17:22 Nucleated RBC % (auto) 0 % 07/12/23 17:22 Nucleated RBCs # 0.0 /100WBC 07/12/23 17:22 Sodium 142 mmol/L (136-145) 07/12/23 17:22 Potassium 4.4 mmol/L (3.5-5.1) 07/12/23 17:22 Chloride 106 mmol/L (98-107) 07/12/23 17:22 Carbon Dioxide 26 mmol/L (22-29) 07/12/23 17:22 Anion Gap 14.4 (5-19) 07/12/23 17:22 BUN 25 mg/dL (8-23) H 07/12/23 17:22 Creatinine 1.2 mg/dL (0.7-1.2) 07/12/23 17:22 GFR Calculation Not Reportable 07/12/23 17:22 Glucose 173 mg/dL (65-115) H 07/12/23 17:22 Calculated Osmolality 303 mOsm/kg (285-295) H 07/12/23 17:22 Calcium 8.0 mg/dL (8.5-10.5) L 07/12/23 17:22 Total Bilirubin 0.7 mg/dL (0.15-1.2) 07/12/23 17: AST 16 U/L (0-40) 07/12/23 17:22 ALT 15 U/L (0-41) 07/12/23 17:22 Alkaline Phosphatase 102 U/L (40-130) 07/12/23 17:22 NT-Pro-B Natriuret Pep 235 pg/mL (0-125) H 07/12/23 17:22 Total Protein 7.2 g/dL (6.6-8.7) 07/12/23 17:22 Albumin 4.0 g/dL (3.5-5.2) 07/12/23 17:22 Globulin 3.2 g/dL (1.3-4.6) 07/12/23 17:22 Urine Color Yellow (Yellow) 07/12/23 19:55 Urine Appearance Clear (CLEAR) 07/12/23 19:55 Urine pH 5 (5-7) 07/12/23 19:55 Ur Specific [place] 1.015 (1.005-1.030) 07/12/23 19:55 Urine Protein Neg (Negative) 07/12/23 19:55 Urine Glucose (UA) 4+ (Normal) H 07/12/23 19:55 Urine Ketones Negative (Negative) 07/12/23 19:55 Urine Blood Neg (Negative) 07/12/23 19:55 Urine Nitrate Negative (Negative) 07/12/23 19:55 Urine Bilirubin Neg (Negative) 07/12/23 19:55 Urine Urobilinogen Norm mg/dL (Negative) 07/12/23 19:55 Ur Leukocyte Esterase Negative (Negative) 07/12/23 19:55 Influenza Type A Ag negative (Negative) 07/12/23 18:30 Influenza Type B Ag negative (Negative) 07/12/23 18:30 SARS-CoV-2 Ag (Rapid) Negative (Negative) 07/12/23 18:30 All radiology interpretation(s) finalized by discharge EKG Data EKG 1: I personally reviewed and interpreted this EKG as follows: EKG Interpretation Date: 07/12/23 EKG interpretation time: 16:45 Interpretation: nsr hr [address] or t wave abnormalities qrs 92 qtc 401 Discharge Plan Discharge Patient Disposition: Admitted As Inpatient Clinical Impression: Pneumonia Condition: Stable Prescriptions: No Action aspirin [Adult Aspirin Regimen] 81 mg tablet,delayed release (DR/EC) 81 mg PO DAILY clonidine HCl 0.1 mg tablet 0.1 mg PO BID 90 Days Qty: 180 2RF Jardiance 25 mg tablet 25 mg PO QAM 90 Days Qty: 90 1RF losartan 50 mg tablet 50 mg PO DAILY 90 Days Qty: 90 1RF amlodipine 10 mg tablet 10 mg PO DAILY 90 Days Qty: 90 1RF atorvastatin 40 mg tablet 40 mg PO DAILY 90 Days Qty: 90 1RF (DME) Blood Glucose Test Strip See Rx Instructions .ROUTE .MEDSUPPLY Qty: 50 11RF Rx Instructions: Brand/type to go with meter per insurance coverage, test 1x daily (DME) lancets Misc See Rx Instructions .ROUTE .MEDSUPPLY Qty: 100 11RF Rx Instructions: For use with glucose meter, brand/type per insurance alcohol swabs Pads, Medicated 1 pad topical TID PRN (Reason: as needed to check blood sugar) 30 Days Qty: 100 11RF (DME) Blood Glucose Test Strip See Rx Instructions .Route Qty: 50 2RF Rx Instructions: Test once daily clindamycin HCl 150 mg Capsule 300 mg PO TID gabapentin 300 mg capsule 300 mg PO TID Referrals: Rylie Chun MD [Primary Care Provider] - Coding Level of Care Code ED Community Living Coach for [facility]
[2023-07-12 19:00] LABS: Influenza A by IFA negative (Negative); Influenza B by IFA negative (Negative)
[2023-07-12 19:16] LABS: SARS Covid-2 Antigen Negative (Negative)
[2023-07-12] MEDS: iohexol 350 mg/mL 500 mL Btl (per mL) IV (19:37)
[2023-07-12 19:51] LABS: NT Pro B Type Natriuretic Pept 235 pg/mL (0-125)
[2023-07-12 20:03] LABS: Add Urine Microscopic? NO; Charge for UA Resulting for Rev
[2023-07-12 20:05] LABS: Protein Urine Neg (Negative); Specific Gravity, Urine 1.015 (1.005-1.030); Urine Appearance Clear (CLEAR); Urine Color Yellow (Yellow); pH Urine 5 (5-7)
[2023-07-12 20:06] LABS: Bilirubin Urine Neg (Negative); Blood Urine Neg (Negative); Glucose Urine UA 4+ (Normal); Ketones Urine Negative (Negative); Leukocyte Esterase Urine Negative (Negative); Nitrate Urine Negative (Negative); Urobilinogen Urine Norm (Negative)
--- NOTE | 2023-07-12 20:38 | P.HP_ITS ---
Providers/Chief Complaint 2 Primary Care Provider: Rylie Chun MD Chief Complaint: fever, headache, 1 day post scope History of Present Illness Paresh Lynch is a 72 year old male with pulmonary nodule, PET scan was done recently, Dr. Kirk did the bronchoscopy on 07/10 patient was sent home, patient came back with shortness of breath requiring oxygen up to 2 L, he also noticed fever 100.8, no nausea vomiting or diarrhea or chest pain. Patient was refusing to come to the hospital however secondary to use of oxygen he decided to stay overnight. We have requested CTA chest reports are pending. His BNP is slightly high clinically patient does not look fluid overloaded He is not complaining of any active symptoms at the time of evaluation he is not septic at all. Review of Systems 2 Const: Reports: fever(s); Denies: chills Eyes: Denies: change in vision ENMT: Denies: throat pain Card: Denies: chest pain Resp: Reports: dyspnea GI: Denies: abdominal pain : Denies: flank pain Medications/Allergies Home Medications Medication Instructions Recorded Confirmed Last Taken Type blood sugar diagnostic (Blood #50 ea 12/19/20 05/31/23 Unknown Rx Glucose Test strips) aspirin 81 mg tablet,delayed 81 mg PO DAILY 04/12/22 07/07/23 07/09/23 History release (Adult Aspirin Regimen) clonidine HCl 0.1 mg tablet 0.1 mg PO BID 90 days #180 tabs 02/01/23 07/07/23 07/11/23 05:00 Rx alcohol swabs 1 pad topical TID PRN as needed to 02/28/23 07/07/23 Unknown Rx check blood sugar 30 days #100 ea amlodipine 10 mg tablet 10 mg PO DAILY 90 days #90 tabs 02/28/23 07/07/23 07/11/23 05:00 Rx atorvastatin 40 mg tablet 40 mg PO DAILY 90 days #90 tabs 02/28/23 07/07/23 07/11/23 05:00 Rx blood sugar diagnostic (Blood #50 ea 02/28/23 05/31/23 Unknown Rx Glucose Test strips) empagliflozin 25 mg tablet 25 mg PO QAM 90 days #90 tabs 02/28/23 07/07/23 07/10/23 Rx (Jardiance) lancets #100 ea 02/28/23 05/31/23 Unknown Rx losartan 50 mg tablet 50 mg PO DAILY 90 days #90 tabs 02/28/23 07/07/23 07/10/23 Rx clindamycin HCl 150 mg capsule 300 mg PO TID 07/07/23 07/07/23 07/11/23 05:00 History gabapentin 300 mg capsule 300 mg PO TID 07/07/23 07/07/23 07/11/23 05:00 History Allergies Allergy/AdvReac Type Severity Reaction Status Date / Time Penicillins Allergy rash Verified 07/07/23 08:35 glipizide AdvReac Intermediate itching Verified 07/07/23 08:35 PFSH Acute 2 PFSH: Medical History Abnormal PET scan, lung Chest pain Erectile dysfunction Diabetic neuropathy Diabetes Intolerance to glipizide, high-dose Metformin causes diarrhea Hypertension 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 Surgical History No pertinent past surgical history Family History Other CAD (coronary artery disease) Diabetes Denies family history of Stroke Social History Smoking and tobacco/nicotine status: former use of tobacco/nicotine Quit status (tobacco/nicotine): has quit using Year quit tobacco: 1998 Former quit date comment: 1ppd X 30 years Alcohol intake: never Substance/Drug Use: never Vitals/I&O/Wt Last Vital Signs Temp 99.9 F H 07/12/23 16:42 Pulse 82 07/12/23 20:15 Resp 19 H 07/12/23 19:15 BP 171/61 07/12/23 20:00 Pulse Ox 93 07/12/23 20:15 O2 Del Method Nasal Cannula 07/12/23 20:15 O2 Flow Rate 2 07/12/23 20:15 Weight last 48 hrs Weight 95.254 kg Physical Exam 2 Narrative: Awake and alert Euvolemic Currently on 2 to 3 L Normotensive Saturating up to 93% on 2 L No active rhonchi or crackle or wheeze Abdomen soft Euvolemic pleasant and cooperative at the bedside Data 07/12/23 17:22 07/12/23 17:22 Micro: Microbiology 07/12/23 18:13 Blood Culture - Preliminary Blood SPECIMEN COLLECTED 07/12/23 18:13 Blood Culture - Preliminary Blood SPECIMEN COLLECTED A&P Assessment and plan (1) Hypertension: Qualifiers: Hypertension type: primary hypertension Qualified Code(s): I10 - Essential (primary) hypertension (2) Intermittent atrial fibrillation: (3) Diabetes: Qualifiers: Diabetes mellitus complication detail: with polyneuropathy Diabetes mellitus complication status: with neurologic complications Diabetes mellitus [facility] insulin use: without [facility] use Diabetes mellitus type: type 2 Qualified Code(s): 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: (5) CKD (chronic kidney disease): Qualifiers: Chronic kidney disease stage: stage 3 (moderate) Chronic kidney disease stage 3 subtype: unspecified whether 3a or 3b Qualified Code(s): N18.30 - Chronic kidney disease, stage 3 unspecified (6) Abnormal PET scan, lung: (7) Hilar lymphadenopathy: (8) Community acquired pneumonia: Plan Community-acquired pneumonia Acute hypoxia Will start antibiotics Currently on 2 L Rule out PE Requested CTA chest Low-grade fever noted in the ER Patient is hypertensive as well Start antihypertensive regimen Antibiotics Monitor for any sign of sepsis however he is not septic at the time of admission Full code Attestations 2 Medical Necessity Statement*: Most likely will be discharged within 48 hours Diagnoses Primary hypertension I10 Hypertension type: primary hypertension Intermittent atrial fibrillation I48.0 Type 2 diabetes mellitus with diabetic polyneuropathy, without long-term current use of insulin E11.42 Diabetes mellitus complication detail: with polyneuropathy Diabetes mellitus complication status: with neurologic complications Diabetes mellitus [employer] insulin use: without [facility] use Diabetes mellitus type: type 2 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
[2023-07-12] MEDS: cefTRIAXone 1,000 MG in sodium chloride 0.9% (plus) 50 ML 100 MG IV (20:53)
[2023-07-12] MEDS: azithromycin 500 MG in sodium chloride 0.9% 250 ML 250 MG IV (20:56)
[2023-07-12 21:40] LABS: Procalcitonin 0.08 ng/mL (0-0.5)
[2023-07-13] VITALS (7 sets, daily range): BP systolic 138–164; BP diastolic 57–76; PULSE 70–89; RESP 16–19; TEMP 36.6–37.7; O2SAT 87–94
[2023-07-13] MEDS: acetaminophen 500 mg Tablet PO (05:01)
[2023-07-13 05:11] LABS: Basophils % 0.5 %; Eosinophils # 0.1 10^3/uL (0.0-0.8); Eosinophils % 0.9 %; Hematocrit 42.1 % (37-53); Lymphocytes # 0.9 10^3/uL (0.8-4.8); Lymphocytes % 15.6 %; Mean Corpuscular Hemoglobin 27.7 pg (27-33); Mean Platelet Volume 9.6 fL (7.4-10.4); Monocytes # 0.3 10^3/uL (0.2-0.9); Neutrophils # 4.21 10^3/uL (1.8-7.7); Neutrophils % 76.5 %; Nucleated Red Blood Cells % 0 %; Platelet Count 118 10^3/cmm (157-399); Red Blood Count 5.01 10^6/uL (3.85-5.65); Red Cell Distribution Width 14.8 % (12.1-15.1); White Blood Count 5.51 10^3/uL (3.29-11.43)
[2023-07-13 05:31] LABS: Anion Gap 14.2 (5-19); Blood Urea Nitrogen 22 mg/dL (8-23); C Reactive Protein 40.4 mg/L (0.0-4.9); Carbon Dioxide 22 mmol/L (22-29); Chloride 108 mmol/L (98-107); Creatinine Clr Calc Pharmacy 64.4404; Glucose 150 mg/dL (65-115); Magnesium 1.9 mg/dL (1.7-2.3); Osmolality Calculated 296 mOsm/kg (285-295); Potassium 4.2 mmol/L (3.5-5.1); Sodium 140 mmol/L (136-145)
[2023-07-13] MEDS: gabapentin 300 mg Capsule PO (08:24)
[2023-07-13] MEDS: amlodipine 10 mg Tablet PO (08:24)
[2023-07-13] MEDS: losartan 50 mg Tablet PO (08:24)
[2023-07-13] MEDS: aspirin 81 mg EC Tablet PO (08:25)
[2023-07-13] MEDS: azithromycin 250 mg Tablet 500 MG PO (08:25)
--- NOTE | 2023-07-13 11:35 | P.DS_ITS ---
Discharge Providers Date of Admission: 07/12/23 21:40 Date of Discharge: July 13, 2023 Attending Provider at Admission: Wanda Mcwilliams MD Attending Provider at Discharge: Wanda Mcwilliams MD Primary Care Provider: Rylie Chun MD Diagnoses at Discharge Discharge Diagnosis (1) Hypertension: Status: Chronic Qualifiers: Hypertension type: primary hypertension Qualified Code(s): I10 - Essential (primary) hypertension Permanent problem details: 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 Diabetes mellitus type: type 2 Qualified Code(s): E11.42 - Type 2 diabetes mellitus with diabetic polyneuropathy Permanent problem details: Intolerance to glipizide, high-dose Metformin causes diarrhea (4) Spleen anomaly: Status: Acute (5) CKD (chronic kidney disease): Status: Acute Qualifiers: Chronic kidney disease stage: stage 3 (moderate) Chronic kidney disease stage 3 subtype: unspecified whether 3a or 3b Qualified Code(s): N18.30 - Chronic kidney disease, stage 3 unspecified (6) Abnormal PET scan, lung: Status: Acute (7) Hilar lymphadenopathy: Status: Acute (8) Community acquired pneumonia: Status: Acute Reason for Visit Reason for Visit: fever, headache, 1 day post scope Hospital Course Hospital Course 72 male who was admitted for management evaluation of pneumonia, he was not septic, CT chest showed multifocal pneumonia, he remained afebrile, no leukocytosis, he is requiring 2 L of oxygen, bronchoscopy was done recently by Dr. Kirk, biopsy results are pending, requesting home oxygen evaluation patient qualified for 3 L, I will prescribe him Augmentin and doxycycline for 10 days along with albuterol. Cultures remain negative. Concern for right lower lobe tiny pulmonary embolism will start patient on Eliquis Physical Exam Narrative: Awake and alert On 2 L GCS 15 Pleasant cooperative Nonfocal neuroexam Discharge Data Studies Completed and Pending Completed Studies During Hospitalization Category Date Time Status CTA chest [CT angio chest PE protcl 25967] Stat Cat Scan 07/12/23 17:52 Completed CXRP [XR chest 1V portable 11433] Stat Exams 07/12/23 17:00 Completed Pending at discharge Category Date Time Status Blood Culture Stat Lab 07/12/23 18:13 Results Sputum Culture and Gram Stain Routine Lab 07/12/23 22:19 Uncollected Radiology Impressions Chest X-Ray 07/12/23 17:00 IMPRESSION: Mild right basilar infiltrate. Chest CTA 07/12/23 17:52 IMPRESSION: 1. Multifocal pneumonia. 2. Increasing hilar and mediastinal adenopathy. 3. Question of possible tiny embolus in right lower lobe branch no large or central pulmonary emboli are demonstrated. ADDENDUM: 07/12/232126 Addendum: THIS REPORT CONTAINS FINDINGS THAT MAY BE CRITICAL TO PATIENT CARE. The findings were verbally communicated via telephone conference with BECKY CORREA at 9:25 PM CDT on 07/12/2023. The findings were acknowledged and understood. Laboratory Results WBC 5.51 10^3/uL (3.29-11.43) 07/13/23 04:51 RBC 5.01 10^6/uL (3.85-5.65) 07/13/23 04:51 Hgb 13.90 g/dL (11.27-16.99) 07/13/23 04:51 Hct 42.1 % (37-53) 07/13/23 04:51 MCV 84.0 fl (82-101) 07/13/23 04:51 MCH 27.7 pg (27-33) 07/13/23 04:51 MCHC 33.0 g/dL (30-55) 07/13/23 04:51 RDW 14.8 % (12.1-15.1) 07/13/23 04:51 Plt Count 118 10^3/cmm (157-399) L 07/13/23 04:51 MPV 9.6 fL (7.4-10.4) 07/13/23 04:51 Neut % (Auto) 76.5 % 07/13/23 04:51 Lymph % (Auto) 15.6 % 07/13/23 04:51 [place] % (Auto) 6.0 % 07/13/23 04:51 Eos % (Auto) 0.9 % 07/13/23 04:51 Baso % (Auto) 0.5 % 07/13/23 04:51 Neut # (Auto) 4.21 10^3/uL (1.8-7.7) 07/13/23 04:51 Lymph # (Auto) 0.9 10^3/uL (0.8-4.8) 07/13/23 04:51 [place] # (Auto) 0.3 10^3/uL (0.2-0.9) 07/13/23 04:51 Eos # (Auto) 0.1 10^3/uL (0.0-0.8) 07/13/23 04:51 Baso # (Auto) 0.0 10^3/uL (0.0-0.1) 07/13/23 04:51 Nucleated RBC % (auto) 0 % 07/13/23 04:51 Nucleated RBCs # 0.0 /100WBC 07/13/23 04:51 Sodium 140 mmol/L (136-145) 07/13/23 04:51 Potassium 4.2 mmol/L (3.5-5.1) 07/13/23 04:51 Chloride 108 mmol/L (98-107) H 07/13/23 04:51 Carbon Dioxide 22 mmol/L (22-29) 07/13/23 04:51 Anion Gap 14.2 (5-19) 07/13/23 04:51 BUN 22 mg/dL (8-23) 07/13/23 04:51 Creatinine 1.2 mg/dL (0.7-1.2) 07/13/23 04:51 GFR Calculation Not Reportable 07/13/23 04:51 Glucose 150 mg/dL (65-115) H 07/13/23 04:51 Calculated Osmolality 296 mOsm/kg (285-295) H 07/13/23 04:51 Calcium 8.0 mg/dL (8.5-10.5) L 07/13/23 04:51 Magnesium 1.9 mg/dL (1.7-2.3) 07/13/23 04:51 Total Bilirubin 0.7 mg/dL (0.15-1.2) 07/12/23 17:22 AST 16 U/L (0-40) 07/12/23 17:22 ALT 15 U/L (0-41) 07/12/23 17:22 Alkaline Phosphatase 102 U/L (40-130) 07/12/23 17:22 C-Reactive Protein 40.4 mg/L (0.0-4.9) H 07/13/23 04:51 NT-Pro-B Natriuret Pep 235 pg/mL (0-125) H 07/12/23 17:22 Total Protein 7.2 g/dL (6.6-8.7) 07/12/23 17:22 Albumin 4.0 g/dL (3.5-5.2) 07/12/23 17:22 Globulin 3.2 g/dL (1.3-4.6) 07/12/23 17:22 Procalcitonin 0.08 ng/mL (0-0.5) 07/12/23 17:22 Urine Color Yellow (Yellow) 07/12/23 19:55 Urine Appearance Clear (CLEAR) 07/12/23 19:55 Urine pH 5 (5-7) 07/12/23 19:55 Ur Specific [place] 1.015 (1.005-1.030) 07/12/23 19:55 Urine Protein Neg (Negative) 07/12/23 19:55 Urine Glucose (UA) 4+ (Normal) H 07/12/23 19:55 Urine Ketones Negative (Negative) 07/12/23 19:55 Urine Blood Neg (Negative) 07/12/23 19:55 Urine Nitrate Negative (Negative) 07/12/23 19:55 Urine Bilirubin Neg (Negative) 07/12/23 19:55 Urine Urobilinogen Norm mg/dL (Negative) 07/12/23 19:55 Ur Leukocyte Esterase Negative (Negative) 07/12/23 19:55 Influenza Type A Ag negative (Negative) 07/12/23 18:30 Influenza Type B Ag negative (Negative) 07/12/23 18:30 SARS-CoV-2 Ag (Rapid) Negative (Negative) 07/12/23 18:30 Vitals Last Vital Signs Temp 98.1 F 07/13/23 11:24 Pulse 70 07/13/23 11:24 Resp 16 07/13/23 11:24 BP 164/76 07/13/23 11:24 Pulse Ox 94 07/13/23 11:24 O2 Del Method Nasal Cannula 07/13/23 11:24 O2 Flow Rate 2 07/13/23 11:24 Discharge Plan Discharge Patient Disposition: Home Condition: Stable Prescriptions: New Eliquis 5 mg tablet 5 mg PO BID Qty: 60 4RF Rx Instructions: 10 mg twice daily for 7 days then 5 mg twice daily levofloxacin 750 mg tablet 750 mg PO DAILY 10 Days Qty: 10 0RF albuterol sulfate 90 mcg/actuation HFA aerosol inhaler 2 inh inhalation Q8H PRN (Reason: shortness of breath or wheezing) Qty: 8.5 2RF Continued clonidine HCl 0.1 mg tablet 0.1 mg PO BID 90 Days Qty: 180 2RF Jardiance 25 mg tablet 25 mg PO QAM 90 Days Qty: 90 1RF losartan 50 mg tablet 50 mg PO DAILY 90 Days Qty: 90 1RF amlodipine 10 mg tablet 10 mg PO DAILY 90 Days Qty: 90 1RF atorvastatin 40 mg tablet 40 mg PO DAILY 90 Days Qty: 90 1RF (DME) Blood Glucose Test Strip See Rx Instructions .ROUTE .MEDSUPPLY Qty: 50 11RF Rx Instructions: Brand/type to go with meter per insurance coverage, test 1x daily (DME) lancets Mis See Rx Instructions .ROUTE .MEDSUPPLY Qty: 100 11RF Rx Instructions: For use with glucose meter, brand/type per insurance alcohol swabs Pads, Medicated 1 pad topical TID PRN (Reason: as needed to check blood sugar) 30 Days Qty: 100 11RF (DME) Blood Glucose Test Strip See Rx Instructions .Route Qty: 50 2RF Rx Instructions: Test once daily gabapentin 300 mg capsule 300 mg PO TID Discontinued aspirin [Adult Aspirin Regimen] 81 mg tablet,delayed release (DR/EC) 81 mg PO DAILY clindamycin HCl 150 mg Capsule 300 mg PO TID Discharge Orders: Discharge Order (Routine); Ordered 07/13/23 Ordered By: Wanda Mcwilliams Other Ambulatory Orders: DME: Oxygen (Order) Location: None Selected Ordered By: Wanda Mcwilliams Referrals: Rylie Chun MD [Primary Care Provider] - Patient Instructions: Albuterol (By mouth), Levofloxacin (By mouth) (Levaquin, Levaquin Leva-shannan), Apixaban (By mouth) (Eliquis), Viral Pneumonia (DC), Opioid Safety Activity Restrictions/Additional Instructions: CT scan of the lung is showing multifocal pneumonia with worsening of pulmonary nodules, Please follow-up with Dr. DeTar to know more about the biopsy report or your primary care doctor. 1 thing we have noticed on the CT scan of the lung is tiny right lower lobe pulmonary embolism which is a clot it is not blocking the flow, will treat pulmonary embolism with a blood thinner called Eliquis you will take Eliquis 10 mg twice a day for 7 days then 5 mg twice a day for at least 6 months He will probably need another CTA chest after 6 months to make sure the clot has resolved before discontinuing Eliquis Side effect of Eliquis is GI bleed if you notice any dark-colored stools she can stop taking Eliquis Discharge Attestations Time Spent in Discharge Care*: greater than 30 min Status at Discharge: Cognitive status at discharge: cognitively intact , Behavioral status at discharge: cooperative , Quality Metrics Clinical Quality Measures [ No reported AMI, CVA or VTE this stay] Coding Level of Care Code Acute Code for Chg Fwd Diagnoses Primary hypertension I10 Hypertension type: primary hypertension Intermittent atrial fibrillation I48.0 Type 2 diabetes mellitus with diabetic polyneuropathy, without long-term current use of insulin E11.42 Diabetes mellitus complication detail: with polyneuropathy Diabetes mellitus complication status: with neurologic complications 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
--- NOTE | 2023-07-13 14:16 | PC.NURSE ---
D/C was pending delivery of O2 from HOME.
== END 2023-07-13 14:05 | disposition home or self-care (01) ==
LOC: ER 21:24 → MEDSURG 21:40
PROVIDERS: Admitting Provider Internal Medicine; Emergency Provider Emergency Medicine; PCP Family Medicine; Visit Provider Internal Medicine
DX: J18.9 Pneumonia, unspecified organism (principal); I48.0 Paroxysmal atrial fibrillation; E11.42 Type 2 diabetes mellitus with diabetic polyneuropathy; Q89.09 Congenital malformations of spleen; E11.22 Type 2 diabetes mellitus with diabetic chronic kidney disease; I12.9 Hypertensive chronic kidney disease with stage 1 through stage 4 chronic kidney disease, or unspecified chronic kidney disease; N18.30 Chronic kidney disease, stage 3 unspecified; R94.2 Abnormal results of pulmonary function studies; R59.0 Localized enlarged lymph nodes; Z79.82 Long term (current) use of aspirin; Z87.891 Personal history of nicotine dependence; R09.02 Hypoxemia
CPT/HCPCS: 36415; 71045; 71275; 80048; 80053; 81003; 83735; 83880; 84145; 85025; 86140; 87040; 87426; 87804; 94760; 96365; 96367; 99285; G0378; J0456; J0696; J7050; Q0144; Q9967

== ENCOUNTER → 2023-08-29 14:10 | Outpatient (BNVA) | payer MEDICARE, SELFPAY | PROVIDERS: PCP Family Medicine; Visit Provider Dermatology | DX: D22.21 Melanocytic nevi of right ear and external auricular canal (principal); D22.39 Melanocytic nevi of other parts of face; L21.8 Other seborrheic dermatitis; L57.0 Actinic keratosis; C44.622 Squamous cell carcinoma of skin of right upper limb, including shoulder | CPT/HCPCS: 17000; 99214 ==

== ENCOUNTER → 2023-09-11 08:38 | Outpatient (BNVA) | payer MEDICARE, SELFPAY | PROVIDERS: PCP Family Medicine; Visit Provider Dermatology | DX: C44.622 Squamous cell carcinoma of skin of right upper limb, including shoulder (principal); D48.5 Neoplasm of uncertain behavior of skin | CPT/HCPCS: 11102; 17311 ==

== ENCOUNTER → 2023-10-03 14:21 | Outpatient (BNVA) | payer MEDICARE, SELFPAY | PROVIDERS: PCP Family Medicine; Visit Provider Dermatology | DX: B07.8 Other viral warts (principal); Z48.817 Encounter for surgical aftercare following surgery on the skin and subcutaneous tissue | CPT/HCPCS: 99213 ==

== ENCOUNTER → 2023-10-18 10:01 | Outpatient (BNVA) | payer MEDICARE, SELFPAY | PROVIDERS: PCP Family Medicine; Visit Provider Family Medicine | DX: E11.42 Type 2 diabetes mellitus with diabetic polyneuropathy (principal); N40.2 Nodular prostate without lower urinary tract symptoms | CPT/HCPCS: 80048; 83036 ==

== ENCOUNTER 2024-01-23 12:19 | Outpatient (CLI) | payer MEDICARE, SELFPAY ==
--- NOTE | 2024-01-23 12:45 | USCV_ITS ---
Paresh Lynch Age: 73 Gender: M : 1950 Exam Date: 01/23/2024 12:31 Ordering Phys: Rylie Chun MD Technologist: [employer] [place]am [place] [facility] [place]: cerebral infarction Risk Factors: Previous Vascular Surgery: Right Brachial BP: / Left Brachial BP: / Right Left Velocity (cm/s) Spectral Plaque Velocity (cm/s) Spectral Plaque Syst/Diast Broadening Syst/Diast Broadening 99.60/ 12.80 Prox CCA 124.70/ 16.10 84.80/ 9.40 Mid CCA 127.30/ 17.80 79.30/ 14.90 Distal CCA 75.90 / 12.80 74.00/ 18.20 Prox ICA 63.90 / 21.10 76.90/ 16.70 Mid ICA 77.50 / 29.40 96.50/ 28.70 Distal ICA 52.40 / 18.80 148.90 ECA 85.30 1.20 ICA/CCA 1.00 Antegrade Vertebral Antegrade 53.70/ 10.40 cm/s 38.40/ 10.40 cm/s Tri Subclavian Tri 48.90 91.90 CONCLUSIONS Right ICA stenosis <50%. Mild atheromatous plaque right carotid bulb/ICA. Left ICA stenosis <50%. Mild atheromatous plaque left carotid bulb/ICA. Intimal thickening in the common carotid arteries and internal carotid arteries bilaterally. Normal antegrade Doppler flow noted in the right vertebral artery. Normal antegrade Doppler flow noted in the left vertebral artery. Chip Cha MD (Electronically Signed) Final Date: 23 January 2024 13:52 S
== END 2024-01-23 12:20 | disposition home or self-care (01) ==
PROVIDERS: PCP Family Medicine; Visit Provider Family Medicine
DX: I65.23 Occlusion and stenosis of bilateral carotid arteries (principal); I63.533 Cerebral infarction due to unspecified occlusion or stenosis of bilateral posterior cerebral arteries; I10 Essential (primary) hypertension; R93.89 Abnormal findings on diagnostic imaging of other specified body structures
CPT/HCPCS: 93880

== ENCOUNTER → 2024-02-22 14:23 | Outpatient (BNVA) | payer MEDICARE, SELFPAY | PROVIDERS: PCP Family Medicine; Visit Provider Internal Medicine Cardiovascular Disease | DX: I48.0 Paroxysmal atrial fibrillation (principal); I13.0 Hypertensive heart and chronic kidney disease with heart failure and stage 1 through stage 4 chronic kidney disease, or unspecified chronic kidney disease; N18.9 Chronic kidney disease, unspecified; I50.9 Heart failure, unspecified; E78.1 Pure hyperglyceridemia; E11.42 Type 2 diabetes mellitus with diabetic polyneuropathy; E11.22 Type 2 diabetes mellitus with diabetic chronic kidney disease; Z79.84 Long term (current) use of oral hypoglycemic drugs; Z87.891 Personal history of nicotine dependence | CPT/HCPCS: 99214 ==

== ENCOUNTER → 2024-03-12 11:02 | Outpatient (BNVA) | payer MEDICARE, SELFPAY | PROVIDERS: PCP Family Medicine; Visit Provider Nurse Practitioner Family | DX: D22.39 Melanocytic nevi of other parts of face (principal); D22.0 Melanocytic nevi of lip; Z08 Encounter for follow-up examination after completed treatment for malignant neoplasm; Z85.828 Personal history of other malignant neoplasm of skin; L82.0 Inflamed seborrheic keratosis | CPT/HCPCS: 11102; 17000; 17110; 99213 ==

== ENCOUNTER → 2024-04-04 08:47 | Outpatient (BNVA) | payer MEDICARE, SELFPAY | PROVIDERS: PCP Family Medicine; Visit Provider Dermatology | DX: D22.5 Melanocytic nevi of trunk (principal); D22.39 Melanocytic nevi of other parts of face; D22.0 Melanocytic nevi of lip; Z08 Encounter for follow-up examination after completed treatment for malignant neoplasm; Z85.828 Personal history of other malignant neoplasm of skin; C44.41 Basal cell carcinoma of skin of scalp and neck; L57.0 Actinic keratosis | CPT/HCPCS: 11602; 13101; 17000; 17272; 99213 ==

== ENCOUNTER → 2024-04-16 08:46 | Outpatient (BNVA) | payer MEDICARE, SELFPAY | PROVIDERS: PCP Family Medicine; Visit Provider Family Medicine | DX: E11.42 Type 2 diabetes mellitus with diabetic polyneuropathy (principal) | CPT/HCPCS: 80053; 80061; 83036 ==

== ENCOUNTER → 2024-08-07 08:56 | Outpatient (BNVA) | payer MEDICARE, SELFPAY | PROVIDERS: PCP Family Medicine; Visit Provider Family Medicine | DX: I10 Essential (primary) hypertension (principal); E11.42 Type 2 diabetes mellitus with diabetic polyneuropathy; E11.9 Type 2 diabetes mellitus without complications; N18.30 Chronic kidney disease, stage 3 unspecified; Z12.5 Encounter for screening for malignant neoplasm of prostate | CPT/HCPCS: 80053; 83036; G0103 ==